=== PATIENT | female | born 1950 | race Caucasian/White ===

== ENCOUNTER → 2020-05-02 12:58 | Outpatient (CLI) | payer MEDICARE, SELFPAY ==
--- NOTE | 2020-05-02 12:59 | CT_ITS ---
STUDY: LOW DOSE CT LUNG CANCER SCREENING REASON FOR EXAM: Female, 70 years old. TOBACCO DEPENDENCY, LUNG SCREENING, CURRENT SMOKER-DOWN TO 5 PER DAY, 30 YRS X 1 PPD, HX OVARIAN/UTERINE CANCER RADIATION DOSAGE (If Supplied By Facility): CTDIvol = ( 2.01 ) mGy, DLP = ( 66.95 ) mGycm TECHNIQUE: No contrast was administered. Low dose technique was utilized (average mAS-38 and kVp 120). 1.25 mm axial source images with a slice interval of 1.25-mm were reconstructed in lung windows. 2.5 mm axial source images with a slice interval of 2.5-mm were reconstructed in lung windows. 5.0 mm axial source images with a slice interval of 5.0-mm were reconstructed in soft tissue windows. Nodule measured using lung windows on PACS and/or independent workstation with automated measurement of minimum and maximum diameter. Nodule measurement reported as average diameter rounded to the nearest whole number. Growth is defined as an increase ins size of greater than 1.5 mm. COMPARISON: None. FINDINGS: Lung windows show diffuse underlying emphysema with blebs scattered throughout both lung johnson. There is no organized infiltrate, groundglass opacifications, suspicious noncalcified mass or nodule. There are some interstitial changes and nonspecific pleural thickening in the lung bases that is likely chronic. No suspicious adenopathy, peripheral calcifications noted in the thoracic aorta without aneurysm. Bony structures show degenerative change. CT/Low Dose CT Lung Screening IMPRESSION: Lung-RADS category 2 - Continue annual screening with LDCT in 12 months. IMPORTANT NOTES FOR USE: ACR Lung-RADS Version 1.0 Assessment Categories Release Date: March 04, 2014 Category: Coded 0-4 bases on nodule(s) with highest degree of suspicion. Negative screen is defined as categories 1 and 2; a positive screen is defined as categories 3 and 4. Category 3 and 4A nodules that are unchanged on interval CT should be coded as category 2, and individuals returned to screening in 12 months. Category 4X: Category 3 or 4 nodules with additional imaging findings that increase the suspicion of lung cancer, such as spiculation, GGN that doubles in size in 1 year, enlarged lymph notes, etc. Category Modifiers: S (significant finding unrelated to lung cancer) and C (prior history of treated lung cancer) may be added to the 0-4 Lung-RADS Electronically Signed: Diogo Singer MD at 14:16 EDT , Service support ,
[2020-05-02 13:41] LABS: Absolute Neutrophil Count 4.2 X10^3/uL (2.0-7.7); Basophil# 0.07 X10^3/uL; Basophil% 0.9 % (0-1); Eosinophil# 0.17 X10^3/uL; Eosinophils% 2.3 % (0-5); Hematocrit 37.2 % (37-47); Hemoglobin 11.9 g/dL (12.0-15.0); Lymphocyte % 33.5 % (19-41); Mean Corpuscular Hgb 30.7 pg (27.0-32.0); Mean Corpuscular Volume 96.1 fL (81-99); Mean Platelet Vol. 10.4 fl (6.2-12.0); Monocyte# 0.49 X10^3/uL; Monocyte% 6.6 % (0-10); NRBC Flagged by Analyzer 0 % (0-5); Neutrophil # 4.22 X10^3/uL (2.7-7.7); Neutrophil % 56.6 % (47-70); Platelet Count 235 K/mm3 (150-450); RBC Distribution Width CV 13.3 % (11.6-14.6); RBC Distribution Width SD 47.1 fl (35.1-43.9); Red Blood Count 3.87 M/mm3 (4.2-5.4); White Blood Count 7.5 K/mm3 (4.4-11.0)
[2020-05-07 03:07] LABS: Alternaria tenuis <0.10 kU/L (Class 0); Ash, White <0.10 kU/L (Class 0); Aspergillus fumigatus <0.10 kU/L (Class 0); Bermuda Grass <0.10 kU/L (Class 0); Birch <0.10 kU/L (Class 0); Black Walnut <0.10 kU/L (Class 0); Cat Hair / Dander,Stand <0.10 kU/L (Class 0); Cedar, Mountain <0.10 kU/L (Class 0); Cladosporium herbarum <0.10 kU/L (Class 0); Cockroach, American <0.10 kU/L (Class 0); Cottonwood <0.10 kU/L (Class 0); D farinae Mite <0.10 kU/L (Class 0); D pteronyssinus <0.10 kU/L (Class 0); Dog Epithelia <0.10 kU/L (Class 0); Elm, American White <0.10 kU/L (Class 0); Immunoglobulin E 8 IU/mL (6-495); Maple/Box Elder <0.10 kU/L (Class 0); Mulberry, White <0.10 kU/L (Class 0); Oak, White <0.10 kU/L (Class 0); Pecan <0.10 kU/L (Class 0); Penicillium Notatum <0.10 kU/L (Class 0); Pigweed, Rough <0.10 kU/L (Class 0); Ragweed, Short/Common <0.10 kU/L (Class 0); Russian Thistle <0.10 kU/L (Class 0); Sheep Sorrel <0.10 kU/L (Class 0); Sycamore, American <0.10 kU/L (Class 0); Timothy Grass <0.10 kU/L (Class 0)
[2020-05-07 16:34] LABS: Immunoglobulin E 11 IU/mL (6-495); Mouse Urine <0.10 kU/L (Class 0)
== END ==
PROVIDERS: PCP Family Medicine; Referring Provider Internal Medicine Critical Care Medicine; Visit Provider Internal Medicine Critical Care Medicine
DX: J44.9 Chronic obstructive pulmonary disease, unspecified (principal); F17.210 Nicotine dependence, cigarettes, uncomplicated; J30.9 Allergic rhinitis, unspecified
CPT/HCPCS: 36415; 82785; 85025; 86003; G0297

== ENCOUNTER → 2020-05-30 10:28 | Outpatient (CLI) | payer MEDICARE, SELFPAY ==
[2017-07-15 06:46] VITALS: BMI 21.1
[2020-05-30 10:30] VITALS: PULSE 71; PULSE 81; PULSE 94; PULSE 95; PULSE 97; PULSE 99; O2SAT 94; O2SAT 95; O2SAT 96
--- NOTE | 2020-05-30 13:14 | PCM.PSN.6M ---
PSN 6 Minute Walk Test - 6 Minute Walk Test 6 Minute Walk Test: 6 Minute Walk Test PSN:6-Minute Walk Test Start: 05/30/20 12:15 Freq: Status: Active Protocol: [id number].[id number] Document 05/30/20 10:30 EW (Rec: 05/30/20 12:20 EW [id number]) 6 Minute Walk Test Date Performed 05/30/20 Time Performed 10:30 Height 5 ft 4 in Weight: 56.699 kg Weight in Pounds 125.[address]: Carlos Luther Assistive device used: None Pre-test Oxygen Delivery Method Room Air Pulse Ox (%) 96 Pulse Rate (60-100 beats/min) 71 Dyspnea Nick Scale (0-10) 3 Exertion Nick Scale (6-20) 8 1st minute Oxygen Delivery Method Room Air Pulse Ox (%) 95 Pulse Rate (60-100 beats/min) 95 2nd minute Oxygen Delivery Method Room Air Pulse Ox (%) 94 Pulse Rate (60-100 beats/min) 97 3rd minute Oxygen Delivery Method Room Air Pulse Ox (%) 94 Pulse Rate (60-100 beats/min) 97 Number of Rests Taken 1 Reported Symptoms Increased Work of Breathing 4th minute Oxygen Delivery Method Room Air Pulse Ox (%) 96 Pulse Rate (60-100 beats/min) 94 5th minute Oxygen Delivery Method Room Air Pulse Ox (%) 94 Pulse Rate (60-100 beats/min) 99 6th minute Oxygen Delivery Method Room Air Pulse Ox (%) 95 Pulse Rate (60-100 beats/min) 95 Post-test Oxygen Delivery Method Room Air Pulse Ox (%) 96 Pulse Rate (60-100 beats/min) 81 Dyspnea Nick Scale (0-10) 3 Exertion Nick Scale (6-20) 13 Full Laps Walked 13 Partial Lap, Number of Tiles Walked 0 Total Distance Walked (ft) 767 - Interpretation Interpretation: Patient was able to ambulate 767 feet over the course of 6 minutes on room air with no assistive devices and one break. The patient experienced no significant desaturation or tachycardia during testing. These findings are consistent with a musculoskeletal limitation exercise tolerance. - Recommendations Recommendations: No supplemental oxygen is indicated at this time.
== END ==
PROVIDERS: PCP Family Medicine; Referring Provider Internal Medicine Critical Care Medicine; Visit Provider Internal Medicine Critical Care Medicine
DX: J44.9 Chronic obstructive pulmonary disease, unspecified (principal); F17.210 Nicotine dependence, cigarettes, uncomplicated
CPT/HCPCS: 94618

== ENCOUNTER → 2020-07-17 20:00 | Outpatient (CLI) | payer MEDICARE, SELFPAY ==
[2020-06-26 07:46] VITALS: BMI 21.4
== END ==
PROVIDERS: PCP Family Medicine; Visit Provider Nurse Practitioner Acute Care
DX: G47.33 Obstructive sleep apnea (adult) (pediatric) (principal)
CPT/HCPCS: 95810

== ENCOUNTER → 2020-11-14 10:47 | Outpatient (CLI) | payer MEDICARE, SELFPAY ==
[2020-09-29 10:05] VITALS: BMI 22.1
--- NOTE | 2020-11-15 05:51 | PFTCOMP_ITS ---
COMPLETE PULMONARY FUNCTION TEST INTERPRETATION Brief HPI: Patient is a 70 year old female, currently under the care of Dr. Luther, who presents to [facility] for complete pulmonary function tests secondary to diagnosis of COPD. Respiratory therapist reports good effort and reproducible results. Interpretation: Forced expiration spirometry shows a mild large airways obstructive ventilatory defect with an FEV1 of 72% predicted. There is no significant bronchodilator response by strict ATS criteria. Spirograms are of good quality and plateau slowly, indicating slowly emptying areas of the lungs. The respiratory flow volume loop shows decreased expiratory flow rates at high lung volumes consistent with small airways obstruction. Lung volumes by body plethysmography show a normal total lung capacity at 4.86 L, 101% predicted. All other lung volumes are within normal limits. Diffusion capacity by carbon monoxide is at the lower limit of normal at 69% predicted. The airway resistance is normal. No previous pulmonary function tests were available for review. Impression: Irreversible mild large airways obstructive ventilatory defect with a symmetric reduction in diffusion capacity
== END ==
PROVIDERS: PCP Family Medicine; Referring Provider Internal Medicine Critical Care Medicine; Visit Provider Internal Medicine Critical Care Medicine
DX: J44.9 Chronic obstructive pulmonary disease, unspecified (principal); F17.210 Nicotine dependence, cigarettes, uncomplicated
CPT/HCPCS: 94060; 94618; 94726; 94729

== ENCOUNTER → 2021-03-10 16:18 | Outpatient (CLI) | payer MEDICARE, SELFPAY ==
[2020-12-31 13:13] VITALS: BMI 21.6
--- NOTE | 2021-03-10 16:19 | CT_ITS ---
STUDY: CT CHEST WITHOUT CONTRAST- LOW DOSE SCREENING PROTOCOL REASON FOR EXAM: Female, 71 years old. Current smoker. 30 pack per year history. No current symptoms of lung cancer or pulmonary infection. Shared decision-making with referring PCP documented in patient''s record. RADIATION DOSAGE (If Supplied By Facility): CTDIvol = ( 2.01 ) mGy, DLP = ( 71.48 ) mGycm TECHNIQUE: Low dose screening CT examination performed from the base of the neck to the upper abdomen. Sagittal and coronal reformatted images performed. Sagittal and coronal MIP images provided. The measurements provided are average, rounded measurements per ACR guidelines. COMPARISON: 05/02/2020 FINDINGS: Mild bilateral apical scarring. Mild emphysematous changes. No noncalcified nodule or mass. There is no demonstrated pleural abnormality. Normal heart and pericardium. There are calcifications of the coronary arteries. Normal mediastinum. Normal hilar regions. Normal unenhanced pulmonary arteries. There is atherosclerotic calcification of the aortic arch with tortuosity and elongation of the aortic arch and descending thoracic aorta. Normal osseous structures. There is no demonstrated abnormality of the visualized upper abdomen. CT/Low Dose CT Lung Screening IMPRESSION: 1. No significant indeterminate incidental findings requiring additional imaging. 2. Incidental findings include mild emphysema and bilateral apical scarring.. ASSESSMENT CATEGORY: LungRADS 1 - Negative. Continue annual screening with LDCT in 12 months, per established ACR guidelines. Electronically Signed: Trey Tierney MD at 8:43 EDT Tel , Service support ,
== END ==
PROVIDERS: PCP Family Medicine; Referring Provider Nurse Practitioner Acute Care; Visit Provider Nurse Practitioner Acute Care
DX: F17.210 Nicotine dependence, cigarettes, uncomplicated (principal)
CPT/HCPCS: 71271

== ENCOUNTER → 2022-04-28 | Outpatient (CLI) | payer MEDICARE, SELFPAY ==
--- NOTE | 2022-04-28 15:04 | CT_ITS ---
STUDY: LOW DOSE CT LUNG CANCER SCREENING REASON FOR EXAM: Female, 72 years old. smoker and gt; 30 pack year RADIATION DOSAGE (If Supplied By Facility): CTDIvol = ( 1.56 ) mGy, DLP = ( 54.79 ) mGycm TECHNIQUE: No contrast was administered. Low dose technique was utilized (average mAS-38 and kVp 120). 1.25 mm axial source images with a slice interval of 1.25-mm were reconstructed in lung windows. 2.5 mm axial source images with a slice interval of 2.5-mm were reconstructed in lung windows. 5.0 mm axial source images with a slice interval of 5.0-mm were reconstructed in soft tissue windows. COMPARISON: 03/10/2021 NODULES: No pulmonary nodules or masses. Bilateral pleural apical fibrotic scarring. Emphysema: Mild centrilobular emphysema. Endobronchial lesion: None Aorta: Atherosclerosis without evidence of aneurysm or dissection. CORONARY ARTERIES: Coronary artery calcification is seen. Heart: Normal size Pulmonary artery: Unremarkable for unopacified technique. Mediastinal nodes: No adenopathy Other chest and abdominal findings: None CT/Low Dose CT Lung Screening IMPRESSION: Lung-RADS category 1 - Continue annual screening with LDCT in 12 months. IMPORTANT NOTES FOR USE: ACR Lung-RADS Version 1.1 Assessment Categories Release Date: 2018 Category: Coded 0-4 bases on nodule(s) with highest degree of suspicion. Negative screen is defined as categories 1 and 2; a positive screen is defined as categories 3 and 4. Category 3 and 4A nodules that are unchanged on interval CT should be coded as category 2, and individuals returned to screening in 12 months. Category 4X: Category 3 or 4 nodules with additional imaging findings that increase the suspicion of lung cancer, such as spiculation, GGN that doubles in size in 1 year, enlarged lymph notes, etc. Category Modifiers: S (significant finding unrelated to lung cancer) Electronically Signed: Yves Ma MD (Brooks) at 9:11 EDT Reading Location ID and State: [facility] / [place] , Service support ,
== END | disposition home or self-care (01) ==
PROVIDERS: PCP Family Medicine; Referring Provider Nurse Practitioner Acute Care; Visit Provider Nurse Practitioner Acute Care
DX: F17.210 Nicotine dependence, cigarettes, uncomplicated (principal)
CPT/HCPCS: 71271

== ENCOUNTER → 2023-01-28 | Outpatient (CLI) | payer MEDICARE, SELFPAY ==
[2023-01-28 15:15] LABS: Hematocrit 38.4 % (37-47); Hemoglobin 12.4 g/dL (12.0-15.0); Mean Corp Hgb Conc 32.3 g/dL (32-36); Mean Corpuscular Hgb 30.6 pg (27.0-32.0); Mean Corpuscular Volume 94.8 fL (81-99); Mean Platelet Vol. 10.8 fl (6.2-12.0); Platelet Count 244 K/mm3 (150-450); RBC Distribution Width CV 14.3 % (11.6-14.6); RBC Distribution Width SD 50.2 fl (35.1-43.9); Red Blood Count 4.05 M/mm3 (4.2-5.4); White Blood Count 7.4 K/mm3 (4.4-11.0)
[2023-01-28 15:33] LABS: Vitamin B12 448 pg/mL (211-911)
[2023-01-28 16:22] LABS: AST(SGOT) 61 U/L (15-37); Alanine Aminotransfer ALT/SGPT 41 U/L (13-56); Albumin, Serum 3.5 g/dL (3.2-5.0); Alkaline Phosphatase 88 U/L (45-117); Anion Gap 3 (5-15); BUN 18 mg/dL (7-18); BUN/Creat Ratio 19.7 RATIO (10-20); Calcium,Total 9.3 mg/dL (8.5-10.1); Chloride 112 mmol/L (98-107); Creatinine, Serum 0.91 mg/dL (0.55-1.02); EST Glomerular Filtration Rate 64 mL/min (>60); Est Glom Filt Rate - Afr Amer 77 mL/min (>60); Globulin 3.6 g/dL (2.2-4.2); Glucose 87 mg/dL (74-106); Potassium 4.1 mmol/L (3.5-5.1); Protein, Total 7.1 g/dL (6.4-8.2); Sodium Level 140 mmol/L (136-145)
[2023-02-02 19:07] LABS: Free Kappa Light Chains 41.9 mg/L (3.3-19.4); Free Lambda Light Chains 23.7 mg/L (5.7-26.3)
[2023-02-03 09:27] LABS: Vitamin B1, Thiamine 124.2 nmol/L (66.5-200.0)
== END | disposition home or self-care (01) ==
PROVIDERS: PCP Family Medicine; Referring Provider Psychiatry & Neurology Neurology; Visit Provider Psychiatry & Neurology Neurology
DX: G31.84 Mild cognitive impairment of uncertain or unknown etiology (principal); R25.1 Tremor, unspecified; R09.89 Other specified symptoms and signs involving the circulatory and respiratory systems; G62.9 Polyneuropathy, unspecified; M54.50 Low back pain, unspecified
CPT/HCPCS: 36415; 80053; 82140; 82607; 82746; 83883; 84425; 84443; 85027

== ENCOUNTER → 2023-02-02 | Outpatient (CLI) | payer MEDICARE, SELFPAY ==
--- NOTE | 2023-02-02 13:54 | CDU_ITS ---
Reason For Study: LT BRUIT, HX OF STROKES Rt. Velocities/BP Lt. Velocities/BP Prox CCA 81.7/15.7 cm/sec. Prox CCA 73.3/16.6 cm/sec. Mid CCA 83.4/16.4 cm/sec. Mid CCA 76.1/19.5 cm/sec. Dist CCA 60.3/21.9 cm/sec. Dist CCA 59.1/14.7 cm/sec. Prox ICA 68.0/19.7 cm/sec. Prox ICA 220.2/44.6 cm/sec. Mid ICA 98.5/33.6 cm/sec. Mid ICA 128.9/34.0 cm/sec. Dist ICA 163.7/41.3 cm/sec. Dist ICA 80.9/25.1 cm/sec. Rt. ICA/CCA = 163.7/83.4=2.0. Lt. ICA/CCA = 220.2/76.1=2.9. Prox ECA 59.2/8.7 cm/sec. Prox ECA 113.1/10.8 cm/sec. Rt. Vert. 49.0/8.4 cm/sec. Lt. Vert. 45.0/13.8 cm/sec. Right Extracranial There is intimal thickening but no significant atherosclerotic plaque noted in the right common carotid artery. There is heterogeneous, irregular atherosclerotic plaque noted in the right internal carotid artery. The right distal internal carotid artery is very tortuous. There is heterogeneous, smooth atherosclerotic plaque noted in the right external carotid artery. Antegrade flow is noted in the right vertebral artery. There is heterogeneous, irregular atherosclerotic plaque noted in the left bulb. Left Extracranial There is intimal thickening but no significant atherosclerotic plaque noted in the left common carotid artery. There is heterogeneous, smooth atherosclerotic plaque noted in the left internal carotid artery. There is heterogeneous, smooth atherosclerotic plaque noted in the left external carotid artery. Antegrade flow is noted in the left vertebral artery. There is heterogeneous, irregular atherosclerotic plaque noted in the left bulb. Procedure Carotid Duplex [id number]. This is a Carotid Duplex examination using B-mode, color flow and specral Doppler. Exam performed in department. Image #47 is the L PICA. VL/Carotid Duplex Ultrasound Interpretation Summary Calcific plaque at the right carotid bulb and proximal internal carotid artery with 50 to 69% stenosis of the right distal internal carotid artery Less than 50% stenosis right external carotid artery Irregular calcific plaque at the proximal left internal carotid artery with 50 to 69% stenosis Less than 50% stenosis left external carotid artery Patent antegrade vertebral arteries bilaterally Ordering Physician: Jean Zavala Referring Physician: Cornell Rogers Performed By: Dot Minaya, CUONG, RVT
== END | disposition home or self-care (01) ==
LOC: CVS 13:48
PROVIDERS: PCP Family Medicine; Referring Provider Psychiatry & Neurology Neurology; Visit Provider Psychiatry & Neurology Neurology
DX: R09.89 Other specified symptoms and signs involving the circulatory and respiratory systems (principal); Z86.73 Personal history of transient ischemic attack (TIA), and cerebral infarction without residual deficits
CPT/HCPCS: 93880

== ENCOUNTER → 2023-02-10 | Outpatient (CLI) | payer MEDICARE, SELFPAY ==
--- NOTE | 2023-02-10 09:51 | TELEMED_ITS ---
[facility] has confirmed receipt of a request for visit. This document confirms receipt of the order initiating the consult. To find the results of the consultation, please view the patient's reports for the scanned Telemed Consult.
== END | disposition home or self-care (01) ==
LOC: PSN 08:25
PROVIDERS: PCP Family Medicine; Referring Provider Psychiatry & Neurology Neurology; Visit Provider Psychiatry & Neurology Neurology
DX: Z86.73 Personal history of transient ischemic attack (TIA), and cerebral infarction without residual deficits (principal); R56.9 Unspecified convulsions; G31.84 Mild cognitive impairment of uncertain or unknown etiology
CPT/HCPCS: 95819

== ENCOUNTER → 2023-02-11 | Outpatient (CLI) | payer MEDICARE, SELFPAY ==
--- NOTE | 2023-02-11 14:50 | CT_ITS ---
STUDY: CTA OF THE BRAIN REASON FOR EXAM: Female, 72 years old. 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 RADIATION DOSAGE (If Supplied By Facility): CTDIvol = ( 28.57 ) mGy, DLP = ( 1197.66 ) mGycm TECHNIQUE: CT angiography was performed with a multi-detector CT scanner. Data acquisition was obtained from the skull base through the vertex following intravenous administration of IV 100mL Isovue-370. MIP images were reconstructed from the axial data set. Post-processing of the angiographic images was performed, with multiplanar reformation and 3D reconstruction. Individualized dose optimization techniques were used for this CT. COMPARISON: None. FINDINGS: Normal bilateral petrous carotid arteries. Normal right cavernous carotid artery with a normal supraclinoid bifurcation. Normal left cavernous carotid artery with a normal supraclinoid bifurcation. Normal right A1 segments of the anterior cerebral artery. Normal left A1 segments of the anterior cerebral artery. Normal intact anterior communicating artery (ACOM). Normal bilateral A2 segments of the anterior cerebral arteries. Normal right M1 and M2 segments of the middle cerebral arteries, with a normal M1 bifurcation. Normal left M1 and M2 segments of the middle cerebral arteries, with a normal M1 bifurcation. Normal right posterior communicating artery (PCOM). Normal left posterior communicating artery (PCOM). Normal bilateral vertebral arteries. Normal basilar artery with a normal basilar bifurcation. The visualized bilateral superior cerebellar (SCA) arteries are normal. Normal bilateral P1, P2 and visualized P3 segments of the posterior cerebral arteries. 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 No complications are noted. 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 CT/CTA Head W/WO Contrast IMPRESSION: Normal [place] without a demonstrated aneurysm or hemodynamically significant stenosis. Electronically Signed: Diogo Singer MD at 9:42 EDT ,
== END | disposition home or self-care (01) ==
LOC: CT 14:50
PROVIDERS: PCP Family Medicine; Referring Provider Psychiatry & Neurology Neurology; Visit Provider Psychiatry & Neurology Neurology
DX: I67.1 Cerebral aneurysm, nonruptured (principal)
CPT/HCPCS: 70496; Q9967

== ENCOUNTER → 2023-04-13 | Outpatient (CLI) | payer MEDICARE, SELFPAY ==
--- NOTE | 2023-04-13 15:02 | NEURO_ITS ---
NCS and/or EMG Patient Report Ordering Doctor: Jean Zavala DATE OF SERVICE: 04/13/23 Gayatri presents for electrodiagnostic testing of the lower limbs. She reports pain and jerking in both legs over the past year. She has had multiple back surgeries. Electrodiagnostic findings: Right peroneal motor nerve demonstrates normal distal latency with reduced amplitude and reduced conduction velocity. Left peroneal motor nerve demonstrates normal distal latency with reduced amplitude and reduced conduction velocity. Right tibial motor nerve demonstrates prolonged distal latency with reduced amplitude and reduced conduction velocity. Left tibial motor nerve demonstrates normal distal latency with reduced amplitude and borderline reduced conduction velocity. Prolonged H reflex noted bilaterally. Normal right and left tibial F waves. Normal right peroneal F- wave. Left peroneal F wave was not obtained. Absent sensory responses in the sural, superficial peroneal and medial plantar nerves bilaterally. Needle EMG testing demonstrated motor units of normal amplitude and duration. There was a decreased recruitment pattern in the left gastrocnemius. No acute denervation was noted. Electrodiagnostic assessment: This is an abnormal study in the lower limbs 1. 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 2. No electrodiagnostic evidence is noted for lumbosacral radiculopathy. Multi Select Codes Neurology Neurology Interp Codes: 13815-10 Musc test done w/n test comp (interp) (2) and 91130-63 Nrv cndj test 11-12 studies (interp)
== END | disposition home or self-care (01) ==
PROVIDERS: PCP Family Medicine; Referring Provider Psychiatry & Neurology Neurology; Visit Provider Psychiatry & Neurology Neurology
DX: G20 Parkinson's disease (principal); G62.9 Polyneuropathy, unspecified; M54.50 Low back pain, unspecified; R26.9 Unspecified abnormalities of gait and mobility
CPT/HCPCS: 95886; 95912

== ENCOUNTER → 2023-04-29 | Outpatient (CLI) | payer MEDICARE, SELFPAY ==
--- NOTE | 2023-04-29 15:56 | CT_ITS ---
EXAM: CT CHEST, LUNG CANCER SCREENING WITHOUT INTRAVENOUS CONTRAST CLINICAL INDICATION: smoker TECHNIQUE: Helically acquired images were obtained of the chest without intravenous contrast using low dose (LDCT) lung cancer screening protocol. This CT exam was performed using one or more of the following dose reduction techniques: automated exposure control, adjustment of the mA and/or kV according to patient size, and/or use of iterative reconstruction technique. COMPARISON: 04/28/2022 FINDINGS: LUNGS AND PLEURAL SPACES: There is stable scarring in the right lung apex. There is a 3 mm pleural-based nodule left apex seen on series 602 image 15. The lungs are hyperinflated. No pneumothorax. HEART: There are coronary artery calcifications. Heart size is normal. No pericardial effusion. MEDIASTINUM: Unremarkable. No mediastinal or hilar adenopathy. Esophagus is unremarkable. No hiatal hernia. THYROID: Unremarkable. No thyroid lesions. BONES/JOINTS: Unremarkable. No suspicious lytic or blastic abnormality. VASCULATURE: See above. LYMPH NODES: Unremarkable. No enlarged lymph nodes. CT/Low Dose CT Lung Screening IMPRESSION: Small pleural-based nodule in the left apex. Lungs are hyperinflated with no focal consolidation. Lung-RADS score: 2 - Benign Appearance or Behavior. Recommend continued annual screening with a low-dose CT (LDCT) in 12 months. Electronically Signed: Roberto Burciaga MD at 23:14 EDT ,
== END | disposition home or self-care (01) ==
LOC: CT 15:55
PROVIDERS: PCP Family Medicine; Referring Provider Nurse Practitioner Acute Care; Visit Provider Nurse Practitioner Acute Care
DX: F17.210 Nicotine dependence, cigarettes, uncomplicated (principal)
CPT/HCPCS: 71271

== ENCOUNTER 2023-05-28 04:54 | Observation (INO) | payer MEDICARE, SELFPAY ==
[2023-05-28] VITALS (11 sets, daily range): BP systolic 107–126; BP diastolic 46–87; PULSE 47–71; RESP 16–18; TEMP 36.2–37.2; O2SAT 96–100; BMI 20.6; BMI 18.8
--- NOTE | 2023-05-28 04:57 | EDS_ITS ---
HPI History of Present Illness Chief Complaint: Neuro S/Sx [facility] Medical History (Updated 05/28/23 @ 06:[address] Dakota Au, DO) Abscess of cellulitis of buttock Breast cancer Chronic pain Chronic, continuous use of opioids COLD (chronic obstructive lung disease) Decreased vision History of brain aneurysm repair Uterine cancer Home Medications hydrocodone-acetaminophen 5-325mg 5mg-325mg 1 tab PO BID 12/16/15 [History Last Taken Unknown] aspirin 81 mg tablet,delayed release 81 mg PO DAILY 02/01/17 [History Last Taken Unknown] albuterol sulfate 90 mcg/actuation aerosol inhaler 2 inh inhalation Q6H PRN shortness of breath or wheezing #3 ea 04/19/22 [Rx Last Taken Unknown] montelukast 10 mg tablet 10 mg PO QPM #90 tabs 11/17/22 [Rx Last Taken Unknown] umeclidinium 62.5 mcg-vilanterol 25 mcg/actuation powdr for inhalation (Anoro Ellipta) 1 inh inhalation QDAY #3 ea 11/17/22 [Rx Last Taken Unknown] atorvastatin 20 mg tablet (Lipitor) 20 mg PO DAILY 01/25/23 [History Last Taken Unknown] duloxetine 60 mg capsule,delayed release 60 mg PO DAILY 01/25/23 [History Last Taken Unknown] fentanyl 50 mcg/hr transdermal patch 1 patch transdermal Q72H 01/25/23 [History Last Taken Unknown] pregabalin 150 mg capsule 150 mg PO BID 01/25/23 [History Last Taken Unknown] trazodone 50 mg tablet 75 mg PO QHS PRN 01/25/23 [History Last Taken Unknown] baclofen 20 mg tablet 20 mg PO TID #270 tabs 05/26/23 [Rx Last Taken Unknown] amitriptyline 25 mg tablet 25 mg PO QHS #90 tabs 05/27/23 [Rx Last Taken Unknown] Allergy/AdvReac Type Severity Reaction Status Date / Time codeine Allergy Hives Verified 05/26/23 14:33 nitrofurantoin Allergy Hives Verified 05/26/23 14:33 [From Macrobid] nitrofurantoin Allergy Hives Verified 05/26/23 14:33 macrocrystalline [From Macrobid] Food Allergies: Uncoded AdvReac Hives Verified 05/26/23 14:33 Family History (Updated 01/25/23 @ 10:04 by Magalie Ocampo) Brother Lung cancer Pancreatic cancer Father Bone cancer Sister Pancreatic cancer Other Colon cancer Surgical History History of appendectomy History of back surgery History of hysterectomy Hx of cholecystectomy No pertinent past surgical history Social History (Updated 01/25/23 @ 09:23 by Magalie Ocampo) Smoking Status: Current every day smoker tobacco type: cigarettes Tobacco: How many years used: 40 second hand exposure: Yes alcohol intake: never substance use type: does not use caffeine: Yes Type: coffee Number of servings: 2 kaylene/restorationist: Zoroastrianism seatbelt use: always EXAM Physical Exam Const Vital Signs: 05/28/23 04:55 05/28/23 05:16 05/28/23 06:17 Temperature 98 F Temperature Source Temporal Pulse Rate 71 53 L Respiratory Rate 18 16 Blood Pressure 126/80 H 125/62 H Blood Pressure Mean 95 83 Pulse Ox 97 98 Oxygen Delivery Method Room Air Room Air MDM MDM MDM Narrative Medical decision making narrative: TA HISTORY OF PRESENT ILLNESS: 73-year-old female here with concern for cute onset of change in mental status and weakness. She is accompanied by her provides majority history as patient is intermittently confused. He states that approximately 10 PM tonight she became altered. He denies any obvious focal weakness. Does note a history of a brain aneurysm status post clipping. Does no history of bleeding after this procedure. This is approximate 18 years ago. He states the patient did fall tonight. She denies any blood thinner use. Denies any recent fever. REVIEW OF SYSTEMS: Pertinent positives: Altered mental status Pertinent negatives: Focal weakness PHYSICAL EXAM: Nursing triage notes reviewed, Vital signs reviewed Constitutional: please see mdm HENT: MMM Eyes: Pupils equal round and reactive to light, Extraocular muscles intact, visual johnson with unilateral right eye with right upper quadrant and opiate Neck: No stridor, no JVD, full neck ROM Lungs: Clear to auscultation, No wheezing or rales. No increased work of breathing, no conversational dyspnea, no accessory muscle use, no nasal flaring. No respiratory distress noted Heart: Regular rate and rhythm, No murmurs, No rubs and No gallops, 2+ distal pulses (radial, femoral, posterior tibial) in all extremities Abdomen: Soft, there is no tenderness, rigidity, rebound or guarding, no obvious peritoneal signs, no palpable pulsatile abdominal masses, no auscultated abdominal bruit : No CVAT Extremities: No edema Neuro: Alert, follows commands, no obvious facial drooping. Left lower extremity with weakness compared to right and drift. NIH of 2 for visual field disturbance and left lower extremity drift. Skin: No rash or lesions noted MEDICAL DECISION MAKING: Chief Complaint: Altered mental status, weakness, fall External records reviewed: TIA in February 2023 Factors affecting care: Brain aneurysm status post clip, COPD, nicotine dependence, AAA Social determinants of health: tobacco use History obtained from others: The patient's Consults: Internal Medicine ALL IMAGES (IF OBTAINED) HAVE BEEN PERSONALLY REVIEWED AND INTERPRETED BY MYSELF. EKG with normal sinus rhythm, normal axis, normal intervals MDM Narrative: Patient was initially hemodynamically stable, afebrile nontoxic-appearing. Initial NIH was 2. Given the patient's history of intracranial hemorrhage in the past she is not a TNK candidate however she is still a thrombectomy candidate if we find a large vessel occlusion so stroke protocol was initiated. Patient taken immediately for CT scan without contrast as well as a CTA of the head neck. I considered the following differential diagnosis: ICH, subarachnoid hemorrhage, infectious cephalopathy, metabolic cephalopathy, TIA, CVA I obtained a broad lab and imaging work-up to further elucidate etiology of the patient's complaints. CT scan of the head, CTA of the head and neck showed no evidence of obvious intracranial hemorrhage or large vessel occlusion. I consulted stroke neurology who recommended against TNK. Stroke neurologist Dr. Peña recommended if the CTA is negative to manage the patient as per usual stroke protocol. CTA was remarkable for 50% ICA stenosis however there is no evidence of large vessel occlusion. Patient's EKG was nonischemic. Troponin was negative. Given the patient's change in mental status, NIH score of 2 for visual field abnormality and left leg weakness I offered the patient admission. I discussed this with the hospitalist who accepted the patient's case. Patient's labs were remarkable for mild respiratory acidosis. There is no other signs of any metabolic or infectious cephalopathy with negative UA no obvious pneumonia. His age. The etiology of patient's change in mental status and focal weakness is unclear at this time however given her advanced age concern for acute CVA amongst other etiologies she will benefit from hospitalization at this time for further evaluation. The patient and/or family, caregivers express understanding. The patient and/or family, caregivers agrees with the plan. Shared decision making: I will have a discussion with the patient and or visitors regarding risk/benefits of further testing or admission. They will be made aware of of the risk/benefits inherent in this decision they will be given the opportunity to voice understanding. Total critical care time today provided was at least 0 [] minutes. This excludes separately billable procedures. Critical care time (if documented) is secondary to the patient having high probability of clinically significant/life threatening deterioration in the patient's condition which required my urgent intervention. Lab Data Attestation: I reviewed the patient's lab results. Lab results narrative: CBC without leukocytosis, severe anemia, no thrombocytopenia. No coagulopathy BMP without evidence of significant electrolyte abnormalities, no anion gap, no acute kidney injury. Troponin is negative, no evidence of myocardial ischemia Glucose within normal limits Urinalysis shows no evidence of urinary inflammation suggestive of UTI VBG with respiratory acidosis mild CO2 elevation consistent with mild obstructive lung disease Labs: Laboratory Results - last 24 hr 05/28/23 05/28/23 05/28/23 05:04 05:12 06:14 WBC 7.2 RBC 3.92 L Hgb 12.0 Hct 37.4 MCV 95.4 MCH 30.6 MCHC 32.1 RDW Std Deviation 48.8 H RDW Coeff of Martina 14.0 Plt Count 203 MPV 10.3 Immature Gran % (Auto) 0.100 Neut % (Auto) 41.1 L Lymph % (Auto) 47.2 H [place] % (Auto) 8.7 Eos % (Auto) 2.1 Baso % (Auto) 0.8 Absolute Neuts (auto) 3.0 Absolute Lymphs (auto) 3.40 Nucleated RBC % 0 PT 13.9 INR 1.1 APTT 34.2 Sodium 143 Potassium 3.4 L Chloride 113 H Carbon Dioxide 26.0 Anion Gap 4 L BUN 14 Creatinine 1.01 Estim Creat Clear Calc 35.10 Est GFR (MDRD) Af Amer 69 Est GFR (MDRD) Non-Af 57 L BUN/Creatinine Ratio 13.9 Glucose 168 H Calcium 9.2 Troponin I High Sens 6 Urine Color Yellow Urine Clarity Clear Urine pH 7.0 Ur Specific [place] 1.005 Urine Protein Negative Urine Glucose (UA) Normal Urine Ketones Negative Urine Occult Blood Negative Urine Nitrite Negative Urine Bilirubin Negative Urine Urobilinogen Normal Ur Leukocyte Esterase Negative Urine RBC 0 SEEN Urine WBC 0 SEEN Ur Squamous Epith Cells 0 SEEN Urine Bacteria 0 SEEN Urine Mucus 0 SEEN POC Glucose 155 H ABG Data ABG results: ABG 05/28/23 06:34 Specimen Type NEO VBG pH 7.28 L VBG pO2 34 VBG HCO3 26 VBG Total CO2 27 VBG O2 Sat (Calc) 56 VBG Base Excess -1 POC Mix VBG pCO2 Pt Tmp 55.0 H Radiography Diagnostic Testing: Clinical Impression(s) from Imaging Studies Brain CT 05/28/23 05:10 IMPRESSION: No acute abnormality on noncontrast CT. CT angiogram and/or MRI may be helpful to evaluate for acute infarct as clinically indicated. Postsurgical changes with prior aneurysm clipping. Chronic microvascular ischemic disease.. Electronically Signed: Anika Diaz MD at 5:30 EDT , ADDENDUM: 05/28/23 0537 IMPRESSION: No acute abnormality on noncontrast CT. CT angiogram and/or MRI may be helpful to evaluate for acute infarct as clinically indicated. Postsurgical changes with prior aneurysm clipping. Chronic microvascular ischemic disease.. N.B. : The above Results were Read Back by Anika Diaz MD to Dakota Au DO, and understanding confirmed on 05/28/2023 05:30:38 (ET). Electronically Signed: Anika Diaz MD at 5:30 EDT , Head/Neck CTA 05/28/23 05:11 IMPRESSION: undefined ADDENDUM: 05/28/23 0608 IMPRESSION: undefined Chest X-Ray 05/28/23 05:45 IMPRESSION: Chronic obstructive pulmonary disease. No acute pulmonary disease. Electronically Signed: Sunny Worley MD at 6:51 EDT , Discharge Plan Dx/Rx/DC Orders Clinical Impression: Acute alteration in mental status Disposition Disposition: Acute Care [facility]
--- NOTE | 2023-05-28 05:10 | CT_ITS ---
We are attempting to reach an attending provider to discuss findings. An addendum with communication details will be sent when the communication is complete. INDICATION: Neuro deficit, acute, stroke suspected EXAMINATION: CT BRAIN - CT Head Stroke Protocol W/O Contrast Injection TECHNIQUE: Multiple axial images were obtained of the head without intravenous contrast. A radiation dose optimization technique was used for this scan. IV Contrast dosage and agent: None. RADIATION DOSAGE (If Supplied By Facility): CTDIvol = ( ) mGy, DLP = ( ) mGycm COMPARISON: CT head 02/11/2023 FINDINGS: BRAIN: Aneurysm clip right parasellar. No acute bleed. No edema. Old infarct in the right basal ganglia. Mild decreased attenuation in the periventricular white matter bilaterally. Smith-white matter differentiation is maintained. VENTRICLES AND SULCI: Not dilated. EXTRA-AXIAL: No hemorrhage, fluid collection, or mass. CALVARIUM / SKULL BASE: Right temporal craniotomy. FACE/SINUSES: Mucosal thickening in the sphenoid sinuses. SOFT TISSUES: Unremarkable. CT/STROKE Brain/Head without Cont IMPRESSION: No acute abnormality on noncontrast CT. CT angiogram and/or MRI may be helpful to evaluate for acute infarct as clinically indicated. Postsurgical changes with prior aneurysm clipping. Chronic microvascular ischemic disease.. Electronically Signed: Anika Diaz MD at 5:30 EDT ,
--- NOTE | 2023-05-28 05:10 | EKG12_ITS ---
Test Reason : STROKE ALERT Blood Pressure : / mmHG Vent. Rate : 060 BPM Atrial Rate : 060 BPM P-R Int : 194 ms QRS Dur : 094 ms QT Int : 454 ms P-R-T Axes : 082 048 060 degrees QTc Int : 454 ms Normal sinus rhythm Normal ECG Confirmed by CHELLE MARQUEZ, MEGGAN ([id number]), associate entertainment editor SAM DORMAN ([id number]) on 05/30/2023 12:31:39 PM Referred By: RONNIE Confirmed By:MEGGAN CORBETT MD
--- NOTE | 2023-05-28 05:11 | CT_ITS ---
EXAM: CT angiogram brain. HISTORY: Neuro deficit, acute, stroke suspected TECHNIQUE: CTA Head and Neck Stroke W/ Contrast (and W/O if performed). Multiplanar reconstructions and 3-D reformats were obtained. A radiation dose optimization technique was used for this scan. COMPARISON: Noncontrast head CT from the same day. CTA head February 11, 2023 LIMITATIONS: Motion artifact. DISTAL CAROTID ARTERIES: No significant stenosis. Aneurysm clip in the region of the supraclinoid right ICA. ANTERIOR CEREBRAL ARTERIES: No significant stenosis. MIDDLE CEREBRAL ARTERIES: Moderate to severe short segment stenosis of the distal M1 segment of the left middle cerebral artery. This is similar to the prior exam. POSTERIOR CEREBRAL ARTERIES: No significant stenosis. BASILAR ARTERY: Persistent right supraclinoid ICA to basilar anastomosis reflects an anatomic variant. No significant stenosis. OTHER: None. CONCLUSION: Moderate to severe stenosis of the distal M1 segment of the left middle cerebral artery. The appearance is grossly stable since the prior CTA. EXAM: CT angiogram neck. HISTORY: Neuro deficit, acute, stroke suspected TECHNIQUE: CTA Head and Neck Stroke W/ Contrast (and W/O if performed). Multiplanar reconstructions and 3-D reformats were obtained. A radiation dose optimization technique was used for this scan. COMPARISON: None. LIMITATIONS: None. CAROTID ARTERIES: Atherosclerotic calcification of the carotid bulbs bilaterally. Stenosis of the left ICA at the origin with decrease in diameter of 50% or less. Similar stenosis at the left ECA origin. No significant carotid stenosis. VERTEBRAL ARTERIES: No significant stenosis. BONES/SOFT TISSUES: No acute fracture. OTHER: None. CONCLUSION: No significant stenosis. N.B. : The above Results were Read Back by Sunny Worley MD to Dakota Au DO, and understanding confirmed on 05/28/2023 05:56:02 (ET). Electronically Signed: Sunny Worley MD at 6:01 EDT , CT/STROKE CTA Head AND Neck W/Con IMPRESSION: undefined
--- NOTE | 2023-05-28 05:19 | ED.RN ---
PT WAS DRIVEN TO ER BY AND DROPPED AT THE DOOR WHILE HE PARKED THE CAR. PT WAS UNSURE WHY SHE WAS HERE OR WHY HER BROUGHT HER HERE. SLOW TO ANSWER QUESITONS. TIME TO CT DELAYED DUE TO DIFFICULTY BY STAFF AND PHYSICIAN TO COMPLETE NIH. PT PRESENTED WITH VARIED VAGUE SYMPTOMS AND DIFFICULT TO PINPOINT COMPLAINT.
[2023-05-28 05:21] LABS: Basophil# 0.06 X10^3/uL; Basophil% 0.8 % (0-1); Eosinophil# 0.15 X10^3/uL; Eosinophils% 2.1 % (0-5); Hematocrit 37.4 % (37-47); Lymphocyte % 47.2 % (19-41); Mean Corp Hgb Conc 32.1 g/dL (32-36); Mean Corpuscular Hgb 30.6 pg (27.0-32.0); Mean Corpuscular Volume 95.4 fL (81-99); Mean Platelet Vol. 10.3 fl (6.2-12.0); Monocyte# 0.63 X10^3/uL; Monocyte% 8.7 % (0-10); NRBC Flagged by Analyzer 0 % (0-5); Neutrophil # 2.96 X10^3/uL (2.7-7.7); Neutrophil % 41.1 % (47-70); Platelet Count 203 K/mm3 (150-450); RBC Distribution Width SD 48.8 fl (35.1-43.9); Red Blood Count 3.92 M/mm3 (4.2-5.4); White Blood Count 7.2 K/mm3 (4.4-11.0)
[2023-05-28 05:23] LABS: Bedside Glucose 155 mg/dL (74-106)
[2023-05-28 05:37] LABS: International Normalized Ratio 1.1; Prothrombin Time (Protime)PT. 13.9 SECONDS (11.7-14.9)
[2023-05-28 05:38] LABS: Partial Thromboplast Time 34.2 Seconds (24.1-36.2)
[2023-05-28 05:41] LABS: Anion Gap 4 (5-15); BUN 14 mg/dL (7-18); BUN/Creat Ratio 13.9 RATIO (10-20); Calcium,Total 9.2 mg/dL (8.5-10.1); Chloride 113 mmol/L (98-107); Creatinine, Serum 1.01 mg/dL (0.55-1.02); EST Glomerular Filtration Rate 57 mL/min (>60); Est Glom Filt Rate - Afr Amer 69 mL/min (>60); Glucose 168 mg/dL (74-106); Potassium 3.4 mmol/L (3.5-5.1); Sodium Level 143 mmol/L (136-145); Troponin-I HS 6 pg/mL (3.0-54.0)
--- NOTE | 2023-05-28 05:45 | RAD_ITS ---
INDICATION: Neuro deficit, acute, stroke suspected EXAMINATION: Frontal view of the chest COMPARISON: None. FINDINGS: Frontal view of the chest was obtained. Hyperinflation. The cardiac silhouette is not enlarged. No confluent airspace disease. No pneumothorax. RAD/Chest 1 View IMPRESSION: Chronic obstructive pulmonary disease. No acute pulmonary disease. Electronically Signed: Sunny Worley MD at 6:51 EDT ,
--- NOTE | 2023-05-28 06:19 | ED.RN ---
PT IS UNWILLING TO TRY TO FOLLOW COMMANDS OTHER THAN TO PICK HER BUTT UP OFF THE FLOOR SO PANTS CAN BE PULLED DOWN AND SHE HELD HER LEGS OUT TO THE SIDE SO THIS NURSE COULD STRAIGHT CATH PT. PT THEM RELUCTANTLY PICKED HER BUTT UP AGAIN SO PANTS COULD BE PULLED BACK UP. PT WOULDN'T TALK TO NURSE BUT DID ARGUE WITH .
[2023-05-28 06:24] LABS: Bacteria 0 SEEN /hpf (None Seen); Mucous, Urine 0 SEEN /hpf (<or=2+); Red Blood Cells-Urine 0 SEEN /hpf (0-5); Squamous Epithelial Cells - UA 0 SEEN /hpf (5-10); White Blood Cells 0 SEEN /hpf (0-5)
[2023-05-28 06:29] LABS: Color, Urine Yellow (Yellow); Glucose, Dipstick Normal (Normal); Ketone-Dipstick Negative (Negative); Leukocyte Esterase-Dipstick Negative /ul (Negative); Nitrite-Dipstick Negative (Negative); Occult Blood-Urine Negative /ul (Negative); Protein-Dipstick Negative (Negative); Specific Gravity, Urine 1.005 (1.002-1.030); Urine Bilirubin Dipstick Negative (Negative); Urine Clarity Clear (Clear); Urine Urobilinogen Normal (Normal)
[2023-05-28 06:39] LABS: Blood Gas Specimen Type VEN; VBG BASE EXCESS -1 mmol/L (-1.0-3.5); VBG Bicarbonate 26 mmol/L (22-26); VBG PO2 34 mmHg (25-40); VBG SO2 56 % (50-70); VBG TCO2 27 mmol/L (23-33); VBG pH 7.28 (7.32-7.42)
--- NOTE | 2023-05-28 06:58 | ED.RN ---
LUCIANA CONTINUES TO NOT COOPERATE ATTEMPTS AT DOING A NIH FOR THIS NURSE AND
--- NOTE | 2023-05-28 07:16 | HP.PCM.HOS_ITS ---
HPI - General General Date of Admission: 05/28/23 Date of Service: 05/28/23 Chief Complaint: Confusion HPI Narrative SCOUT CASTILLO, is a 73 F with a significant history of brain aneurysm status post clip; and uterine cancer who presents to the emergency department with confusion. Patient's symptoms started few hours before presentation. Reportedly while shopping with her patient reported not feeling good. Later in the day patient developed confusion. History was taken predominantly from patient's who was at bedside as patient was not answering questions. Per patient patient fell. Per patient patient has some slurry speech. Also patient complain of leg pain. [facility] Medical History Abscess of cellulitis of buttock Breast cancer Chronic pain Chronic, continuous use of opioids COLD (chronic obstructive lung disease) Decreased vision History of brain aneurysm repair Uterine cancer Home Medications hydrocodone-acetaminophen 5-325mg 5mg-325mg 1 tab PO BID 12/16/15 [History Last Taken Unknown] aspirin 81 mg tablet,delayed release 81 mg PO DAILY 02/01/17 [History Last Taken Unknown] albuterol sulfate 90 mcg/actuation aerosol inhaler 2 inh inhalation Q6H PRN shortness of breath or wheezing #3 ea 04/19/22 [Rx Last Taken Unknown] montelukast 10 mg tablet 10 mg PO QPM #90 tabs 11/17/22 [Rx Last Taken Unknown] umeclidinium 62.5 mcg-vilanterol 25 mcg/actuation powdr for inhalation (Anoro Ellipta) 1 inh inhalation QDAY #3 ea 11/17/22 [Rx Last Taken Unknown] atorvastatin 20 mg tablet (Lipitor) 20 mg PO DAILY 01/25/23 [History Last Taken Unknown] duloxetine 60 mg capsule,delayed release 60 mg PO DAILY 01/25/23 [History Last Taken Unknown] fentanyl 50 mcg/hr transdermal patch 1 patch transdermal Q72H 01/25/23 [History Last Taken Unknown] pregabalin 150 mg capsule 150 mg PO BID 01/25/23 [History Last Taken Unknown] trazodone 50 mg tablet 75 mg PO QHS PRN 01/25/23 [History Last Taken Unknown] baclofen 20 mg tablet 20 mg PO TID #270 tabs 05/26/23 [Rx Last Taken Unknown] amitriptyline 25 mg tablet 25 mg PO QHS #90 tabs 05/27/23 [Rx Last Taken Unknown] Allergy/AdvReac Type Severity Reaction Status Date / Time codeine Allergy Hives Verified 05/26/23 14:33 nitrofurantoin Allergy Hives Verified 05/26/23 14:33 [From Macrobid] nitrofurantoin Allergy Hives Verified 05/26/23 14:33 macrocrystalline [From Macrobid] Food Allergies: Uncoded AdvReac Hives Verified 05/26/23 14:33 Family History Brother Lung cancer Pancreatic cancer Father Bone cancer Sister Pancreatic cancer Other Colon cancer Surgical History History of appendectomy History of back surgery History of hysterectomy Hx of cholecystectomy No pertinent past surgical history Social History Smoking Status: Current every day smoker tobacco type: cigarettes Tobacco: How many years used: 40 second hand exposure: Yes alcohol intake: never substance use type: does not use caffeine: Yes Type: coffee Number of servings: 2 kaylene/worship: [employer] seatbelt use: always ROS Review of Systems ROS Unobtainable: due to mental status Vital Signs Vital Signs Vital Signs: 05/28/23 04:55 05/28/23 05:16 05/28/23 06:17 Temperature 98 F Temperature Source Temporal Pulse Rate 71 53 L Respiratory Rate 18 16 Blood Pressure 126/80 H 125/62 H Blood Pressure Mean 95 83 Pulse Ox 97 98 Oxygen Delivery Method Room Air Room Air 05/28/23 06:46 05/28/23 06:58 05/28/23 07:00 Temperature 97.2 F L Temperature Source Oral Pulse Rate 50 L 47 L 52 L Respiratory Rate 16 16 16 Blood Pressure 114/64 116/61 116/61 Blood Pressure Mean 80 79 79 Pulse Ox 99 100 99 Oxygen Delivery Method Room Air Room Air Weight Weight: 47.9 kg Body Mass Index (BMI) 20.6 Physical Exam Narrative Physical exam: General: Well-nourished, well-developed. Head: Normocephalic, atraumatic, no tenderness Eyes: Does not open eyes long enough factors. ENT, no trauma, moist mucous membranes, no rhinorrhea Neck: Nontender, No thyromegaly. CVS: Regular rate and rhythm. S1-S2 present. No murmur, gallop or rub. Respiratory : clear to auscultation bilaterally, chest wall nontender Abdomen: Soft, nontender, nondistended, normal bowel sounds, no masses : Deferred Back: Nontender, no CVA tenderness, no midline spinal tenderness, deformities, step-offs Extremities: Move bilateral upper extremities in testing for strength. Moderate resistance in bilateral upper extremities. Strength. Does not move bilateral lower extremity due to strength. Bilateral lower extremities coiled Skin: Normal color, no trauma, abrasions Neuro: Hypoalert. Following few commands and not following majority of commands. Keep her eyes shut. Psychiatry: Keep her eyes shut. Not following commands. Results Lab / Micro Data 05/28/23 05:12 05/28/23 05:12 Labs: Laboratory Results - last 24 hr 05/28/23 05:04: POC Glucose 155 H 05/28/23 05:12: WBC 7.2, RBC 3.92 L, Hgb 12.0, Hct 37.4, MCV 95.4, MCH 30.6, MCHC 32.1, RDW Std Deviation 48.8 H, RDW Coeff of Martina 14.0, Plt Count 203, MPV 10.3, Immature Gran % (Auto) 0.100, Neut % (Auto) 41.1 L, Lymph % (Auto) 47.2 H, [place] % (Auto) 8.7, Eos % (Auto) 2.1, Baso % (Auto) 0.8, Absolute Neuts (auto) 3.0, Absolute Lymphs (auto) 3.40, Nucleated RBC % 0, PT 13.9, INR 1.1, APTT 34.2, Sodium 143, Potassium 3.4 L, Chloride 113 H, Carbon Dioxide 26.0, Anion Gap 4 L, BUN 14, Creatinine 1.01, Estim Creat Clear Calc 35.10, Est GFR (MDRD) Af Amer 69, Est GFR (MDRD) Non-Af 57 L, BUN/Creatinine Ratio 13.9, Glucose 168 H , Calcium 9.2, Troponin I High Sens 6 05/28/23 06:14: Urine Color Yellow, Urine Clarity Clear, Urine pH 7.0, Ur Specific [place] 1.005, Urine Protein Negative, Urine Glucose (UA) Normal, Urine Ketones Negative, Urine Occult Blood Negative, Urine Nitrite Negative, Urine Bilirubin Negative, Urine Urobilinogen Normal, Ur Leukocyte Esterase Negative, Urine RBC 0 SEEN, Urine WBC 0 SEEN, Ur Squamous Epith Cells 0 SEEN, Urine Bacteria 0 SEEN, Urine Mucus 0 SEEN ABG Data ABG results: ABG 05/28/23 06:34 Specimen Type NEO VBG pH 7.28 L VBG pO2 34 VBG HCO3 26 VBG Total CO2 27 VBG O2 Sat (Calc) 56 VBG Base Excess -1 POC Mix VBG pCO2 Pt Tmp 55.0 H Radiology Impression Brain CT 05/28/23 05:10 IMPRESSION: No acute abnormality on noncontrast CT. CT angiogram and/or MRI may be helpful to evaluate for acute infarct as clinically indicated. Postsurgical changes with prior aneurysm clipping. Chronic microvascular ischemic disease.. Electronically Signed: Anika Diaz MD at 5:30 EDT , ADDENDUM: 05/28/23 0537 IMPRESSION: No acute abnormality on noncontrast CT. CT angiogram and/or MRI may be helpful to evaluate for acute infarct as clinically indicated. Postsurgical changes with prior aneurysm clipping. Chronic microvascular ischemic disease.. N.B. : The above Results were Read Back by Anika Diaz MD to Dakota Au DO, and understanding confirmed on 05/28/2023 05:30:38 (ET). Electronically Signed: Anika Diaz MD at 5:30 EDT , Head/Neck CTA 05/28/23 05:11 IMPRESSION: undefined ADDENDUM: 05/28/23 0608 IMPRESSION: undefined Chest X-Ray 05/28/23 05:45 IMPRESSION: Chronic obstructive pulmonary disease. No acute pulmonary disease. Electronically Signed: Sunny Worley MD at 6:51 EDT , Assessment & Plan Assessment/Plan (1) Encephalopathy acute: PLAN: Plan Acute encephalopathy Etiology unclear. Differential diagnosis includes stroke. Serial NINDS NIH Scale ordered Impression of head CT by radiology: No acute abnormality on noncontrast CT. CT angiogram and/or MRI may be helpful to evaluate for acute infarct as clinically indicated. Postsurgical changes with prior aneurysm clipping. Chronic microvascular ischemic disease.. Upon my personal head CT image review: I agree with radiologist interpretation Head and neck CTA does not have significant stenosis. Lipid profile and A1c ordered. Physical therapy, occupational therapy and Speech therapy to work with patient. N.p.o. until bedside swallow eval. Because of encephalopathy we will keep patient NPO. Permissive hypertension. Control blood pressure with labetalol for systolic blood pressure of more than 220 or diastolic blood pressure of more than 120. Reportedly (per patient's ) patient's aneurysmal clip is not MRI compatible. Recommend that patient be at the hospital couple of days for a repeat CT of head. Echocardiogram ordered. VBG is not impressive. TSH ordered emergency department, follow. Check a mmonia, and syphilis. DVT prophylaxis: SCDs ordered. Time spent in the patient's overall evaluation,decision-making process, review of diagnostic data, adjustment of management, discussion with other providers, nursing nursing and ancillary staff involved in patient's care documentation, 60 minutes. Charges/Coding Visit Charges Inpatient E&M: 22604 Init Hosp L3
[2023-05-28 07:27] LABS: Thyroid Stim Hormone (TSH) 2.02 uIU/mL (0.358-3.74)
--- NOTE | 2023-05-28 08:10 | ECHOD_ITS ---
Reason For Study: TIA/CVA Procedure This was a 2D Doppler, Color Flow transthoracic echocardiogram. Exam performed portable in patient room. Left Ventricle Normal size and thickness. The left ventricular ejection fraction is 65 %. Diastolic function is indeterminate. Right Ventricle Normal right ventricle. Atria The left and right atria are normal. Lipomatous hypertrophy of the atrial septum. Bubble contrast study is negative for PFO/ASD. Mitral Valve Trivial mitral valve insufficiency. Tricuspid Valve Mild to moderate (1-2+) tricuspid valve insufficiency. Right ventricular systolic pressure estimated to be 39 mmHg. Aortic Valve Trisinus/trileaflet aortic valve. Moderate focal aortic valve thickening. There is no aortic stenosis. No aortic valve insufficiency. Pulmonic Valve The pulmonic valve is not well visualized. Great Vessels The aortic root is not well visualized. Pericardium/Pleural No pericardial effusion. Medication Performed a rapid injection of agitated mix of 9 cc saline and 1cc air to assess for atrial septal defect. MMode/2D Measurements & Calculations LVIDd: 4.0 cm IVSd: 0.73 cm LAV(MOD-bp): 46.6 ml LVIDs: 2.8 cm LVPWd: 0.86 cm FS: 30.0 % LAV(MOD-bp) Indexed: 32.3 ml/m2 LAV(MOD-sp2): 29.3 ml LAV(MOD-sp4): 53.7 ml SV(MOD-sp4): 43.2 ml SV(sp4-el): 47.4 ml LVAd ap4: 22.2 cm2 LVLd ap4: 6.7 cm EDV(MOD-sp4): 58.2 ml EDV(sp4-el): 62.2 ml LVAs ap4: 9.3 cm2 LVLs ap4: 5.0 cm ESV(MOD-sp4): 15.0 ml ESV(sp4-el): 14.9 ml EF(MOD-sp4): 74.2 % EF(sp4-el): 76.1 % TAPSE: 2.9 cm LA A4 area: 19.4 cm2 RA A4 area: 14.8 cm2 Doppler Measurements & Calculations Lat Peak E' Moo: 6.6 cm/sec Med Peak E' Moo: 7.1 cm/sec MV V2 max: 97.5 cm/sec MV max P.8 mmHg MV V2 mean: 49.9 cm/sec MV mean P.3 mmHg MV V2 VTI: 38.7 cm Ao V2 max: 161.5 cm/sec LV V1 max: 108.6 cm/sec PA V2 max: 97.8 cm/sec Ao max P.5 mmHg LV V1 max P.7 mmHg PA V2 mean: 67.6 cm/sec Ao V2 mean: 98.2 cm/sec LV V1 mean P.1 mmHg Ao mean P.6 mmHg LV V1 mean: 66.1 cm/sec Ao V2 VTI: 45.6 cm LV V1 VTI: 25.4 cm AV (velocity ratio): 0.56 TR max moo: 267.5 cm/sec TR max P.6 mmHg ECHO/Echo Complete Interpretation Summary The left ventricular ejection fraction is 65 %. Diastolic function is indeterminate. Lipomatous hypertrophy of the atrial septum. Bubble contrast study is negative for PFO/ASD. Mild to moderate (1-2+) tricuspid valve insufficiency. Right ventricular systolic pressure estimated to be 39 mmHg. Focal thickening and calcification of the noncoronary cusp of the aortic valve. Ordering Physician: Bhavesh Chand Referring Physician: DOMINICK RODRÍGUEZ Performed By: Mary Jack RCS
--- NOTE | 2023-05-28 08:25 | NURSING ---
Pt has a fentanyl patch in place to L shoulder dosage is 50 mcg. She thinks she applied the patch yesterday. There is not date on the patch.
--- NOTE | 2023-05-28 08:30 | NURSING ---
Pt does not possess any information regarding aneurysm clip nor does .
[2023-05-28 09:49] LABS: Ammonia < 10.0 umol/L (11-32)
[2023-05-28 09:53] LABS: Alcohol, Blood (Medical)-Serum < 3.0 mg/dL
[2023-05-28 10:12] LABS: Syphilis Antibodies Non-reactive; Vitamin B12 315 pg/mL (211-911)
[2023-05-28] MEDS: Potassium Chloride Oral Tablet 20 MEQ 40 MEQ PO (11:00)
[2023-05-28] MEDS: Pregabalin 75 MG Capsule 150 MG PO ×2 (11:00→21:54)
[2023-05-28] MEDS: Acetaminophen 325 MG Tablet 650 MG PO (11:04)
--- NOTE | 2023-05-28 13:40 | PCM.HOSP.N ---
Hospitalist Note Patient resting in bed, primary complaint is pain related which she reports is chronic and no different from baseline. Fentanyl patch is on, given mental status on arrival her hydrocodone had been held, will restart this as needed at lower dose and monitor carefully. As it is home medication did not want to hold something unnecessarily but did not want to worsen mental status either. Patient has no other complaints at this time
--- NOTE | 2023-05-28 14:07 | CASEMGMT ---
ANASTASIIA CM in to discuss JOHNSON form with patient. RN CM explained JOHNSON form, patient voiced understanding. Pt signed form and filed in chart. Pt provided with a copy of signed JOHNSON form. Patient had no further questions or concerns at this time.
--- NOTE | 2023-05-28 14:07 | CASEMGMT ---
ANASTASIIA CM into pt room, discussed pt progress with therapy. Pt lives in a single story home with 3 steps to enter with a rail. Pt reports she lives with her . States she uses a cane but also has a FWW available to her. Discussed HHC with patient. Pt is agreeable to this as she states she has been falling. Patient was provided a list of HHC providers including quality and resource use data and consistent with the patient?s preferred geographic region, medical needs, and insurance network were provided from the [employer] Guide. Pt chose [facility]. She states she has had them in the past and pt would like to return home. Referral made via [employer] and left message with intake as well. TC to pt to discuss dc plan, no answer and unable to leave a message.
[2023-05-28] MEDS: DULoxetine Hcl 60 MG Capsule PO (14:08)
[2023-05-28] MEDS: HYDROcodone Bitartrate/Apap 5/325 Tablet PO ×2 (14:08→18:27)
[2023-05-28] MEDS: Ipratropium/Albuterol Sulfate 3 ML AMPUL.NEB INHALATION (19:20)
[2023-05-28] MEDS: Atorvastatin Calcium 20 MG Tablet PO (21:54)
[2023-05-28] MEDS: Montelukast 10 MG Tablet PO (21:54)
[2023-05-28 23:22] LABS: Amphetamine Urine VISTA NEGATIVE (<1000 ng/mL); Barbiturate Urine VISTA NEGATIVE (< 200 ng/mL); Benzodiazepine Urine VISTA NEGATIVE (< 200 ng/mL); Cocaine Urine VISTA NEGATIVE (< 300 ng/mL); Ecstacy Urine VISTA POSITIVE (< 500 ng/mL); Methadone Urine VISTA NEGATIVE (< 300 ng/mL); PCP Urine VISTA NEGATIVE (< 25 ng/mL); THC Urine VISTA NEGATIVE (< 50 ng/mL); Vista UDS pH Range 6
[2023-05-29 02:00] VITALS: BP 109/59; PULSE 53; RESP 12; TEMP 36.4; O2SAT 96
[2023-05-29 06:00] VITALS: BP 104/52; PULSE 59; RESP 14; TEMP 36.6; O2SAT 97
[2023-05-29 06:02] LABS: Absolute Lymphocyte Count 3.16 X10^3/uL (0.83-4.51); Absolute Neutrophil Count 3.3 X10^3/uL (2.0-7.7); Basophil# 0.07 X10^3/uL; Basophil% 0.9 % (0-1); Eosinophil# 0.26 X10^3/uL; Eosinophils% 3.5 % (0-5); Hematocrit 34.3 % (37-47); Hemoglobin 11.1 g/dL (12.0-15.0); Lymphocyte # 3.16 X10^3/ul (0.83-4.51); Lymphocyte % 42.7 % (19-41); Mean Corp Hgb Conc 32.4 g/dL (32-36); Mean Corpuscular Hgb 30.8 pg (27.0-32.0); Mean Corpuscular Volume 95.3 fL (81-99); Mean Platelet Vol. 10.7 fl (6.2-12.0); Monocyte# 0.62 X10^3/uL; Monocyte% 8.4 % (0-10); NRBC Flagged by Analyzer 0 % (0-5); Neutrophil # 3.29 X10^3/uL (2.7-7.7); Neutrophil % 44.5 % (47-70); Platelet Count 202 K/mm3 (150-450); RBC Distribution Width CV 14.1 % (11.6-14.6); RBC Distribution Width SD 49.5 fl (35.1-43.9); White Blood Count 7.4 K/mm3 (4.4-11.0)
[2023-05-29 06:49] LABS: Anion Gap 2 (5-15); BUN 19 mg/dL (7-18); BUN/Creat Ratio 19.8 RATIO (10-20); Chloride 113 mmol/L (98-107); Cholesterol 95 mg/dL (200); Creatinine, Serum 0.96 mg/dL (0.55-1.02); EST Glomerular Filtration Rate 60 mL/min (>60); Est Glom Filt Rate - Afr Amer 73 mL/min (>60); Estimated Creatinine Clearance 38.07 ml/min; Glucose 96 mg/dL (74-106); High Density Lipoprotein 49 mg/dL; Potassium 3.9 mmol/L (3.5-5.1); Sodium Level 143 mmol/L (136-145); Triglycerides 77 mg/dL; Very Low Density Lipoprotein 15 mg/dL (5-40)
[2023-05-29] MEDS: Ipratropium/Albuterol Sulfate 3 ML AMPUL.NEB INHALATION (06:59)
[2023-05-29 07:00] VITALS: PULSE 62; RESP 18; O2SAT 97
[2023-05-29 08:15] VITALS: PULSE 54; RESP 16; O2SAT 96
--- NOTE | 2023-05-29 08:51 | CT_ITS ---
STUDY: CT BRAIN WITHOUT CONTRAST REASON FOR EXAM: Female, 73 years old. Mental status change RADIATION DOSAGE (If Supplied By Facility): CTDIvol = ( 44.99 ) mGy, DLP = ( 769.11 ) mGycm TECHNIQUE: Transaxial CT imaging of the brain was performed without administration of intravenous contrast material. Individualized dose optimization techniques were used for this CT. COMPARISON: 05/28/2023 FINDINGS: Evidence of previous right craniotomy and aneurysm clipping. Normal size ventricles and extra-axial spaces for the patient''s age. There are areas of decreased attenuation within the white matter tracts of the supratentorial brain, consistent with microvascular disease changes. 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 Normal brainstem. Normal cerebellum. There is no intracranial hemorrhage. There are no findings of an acute ischemic infarction. Normal visualized paranasal sinuses. CT/Brain/Head without Contrast IMPRESSION: Age consistent and postsurgical changes, no acute findings, no interval change Electronically Signed: Diogo Singer MD at 11:47 EDT ,
[2023-05-29] MEDS: Pregabalin 75 MG Capsule 150 MG PO (10:16)
[2023-05-29] MEDS: Aspirin E.C. 81 MG Tablet PO (10:17)
[2023-05-29] MEDS: DULoxetine Hcl 60 MG Capsule PO (10:17)
--- NOTE | 2023-05-29 10:38 | NURSING ---
Pt and pt's asking multiple staff members throughout morning for pt to have pain medicine. Educated at length about the fact that the pt becomes nearly unresponsive after receiving pain meds. This RN discussed the fact that the pt takes 6 medications on a regular basis that cause drowsiness/neurological impairment i.e. fentanyl pain, norco, baclofen, antidepressents, and lyrica and that once the medicines are withheld for an extended period of time, nursing has observed that her neurological status improves. Also discussed the adverse effects of these mediciations on a pt that has COPD and still smokes. Pt and were very thankful for the time taken to explain this as they feel they have not been given the time by the pt's current providers. This RN suggested possible consultation with a pain specialist given the fact she has been on narcotics for nearly 20 years- we talked about development of tolerance, etc and the fact that the pain will likely never completely stop and ways to achieve a tolerable level instead. Pt slightly tearful, verbalizing that we think she is a drug addict or came in with an overdose. Reassured pt that it is our job to modify medical care according to her response to treatment we are providing and in her case, medications that she has been prescribed by her doctors, we are observing may be negatively impacting her neurologically, not the fact that she is an addict. Reassured the pt that any person prescribed these types of medications has the propensity to become dependent and that is why we try to judiciously use these medication bedore they become problematic. Again, pt and her thanked this RN for education stating they have learned more talking to you than we have in years. Let pt know that in an hour we would reevaluate her pain level and give her norco if needed.
[2023-05-29 11:40] VITALS: BP 116/53; PULSE 67; RESP 16; TEMP 36.4; O2SAT 98
[2023-05-29] MEDS: HYDROcodone Bitartrate/Apap 5/325 Tablet PO (11:43)
--- NOTE | 2023-05-29 12:33 | DS.PCM_ITS ---
Providers Date of Admission: 05/28/23 Date of Discharge: 05/29/23 Primary Care Physician: Dr. Cornell Rodríguez MD Reason For Visit: STROKE-LIKE SYMPTOMS Diagnosis Discharge Diagnosis (1) Toxic encephalopathy: Status: Acute Code(s): G92.9 - Unspecified toxic encephalopathy (2) COPD (chronic obstructive pulmonary disease): Status: Chronic Code(s): J44.9 - Chronic obstructive pulmonary disease, unspecified Qualifiers: COPD type: unspecified COPD Qualified Code(s): J44.9 - Chronic obstructive pulmonary disease, unspecified (3) Chronic pain: Status: Chronic Code(s): G89.29 - Other chronic pain (4) Polyneuropathy: Status: Chronic Code(s): G62.9 - Polyneuropathy, unspecified Medications at Discharge Home Medications hydrocodone-acetaminophen 5-325mg 5mg-325mg 1 tab PO BID 12/16/15 aspirin 81 mg tablet,delayed release 81 mg PO DAILY 02/01/17 albuterol sulfate 90 mcg/actuation aerosol inhaler 2 inh inhalation Q6H PRN shortness of breath or wheezing #3 ea 04/19/22 montelukast 10 mg tablet 10 mg PO QPM #90 tabs 11/17/22 umeclidinium 62.5 mcg-vilanterol 25 mcg/actuation powdr for inhalation (Anoro Ellipta) 1 inh inhalation QDAY #3 ea 11/17/22 atorvastatin 20 mg tablet (Lipitor) 20 mg PO DAILY 01/25/23 duloxetine 60 mg capsule,delayed release 60 mg PO DAILY 01/25/23 fentanyl 50 mcg/hr transdermal patch 1 patch transdermal Q72H 01/25/23 pregabalin 150 mg capsule 150 mg PO BID 01/25/23 baclofen 20 mg tablet 20 mg PO TID #270 tabs 05/26/23 amitriptyline 25 mg tablet 25 mg PO QHS #90 tabs 05/27/23 Hospital Course Summary of Care Provided Minutes Spent on Discharge: 36 Hospital Course: Patient is a 73-year-old female with history of chronic back pain on multiple medications including fentanyl patch, tobacco use, brain aneurysm status post clipping, COPD, history of breast and uterine cancer who presented to [facility] 05/28/2023 with altered mental status. brought her to the ED for worsening confusion and not feeling well. Etiology was unclear and labs unremarkable so she was brought in as a stroke rule out. CT head and CTA unremarkable, echo with negative bubble study, patient unable to get MRI due to aneurysm clip. Her medications were adjusted and patient improved significantly, repeat CT head at 24 hours with no changes patient no focal def icits and was doing well with no complaints aside from her chronic pain complaints. Counseled her and her extensively on her multiple medications and this was likely secondary to the multiple medications in addition to her age and also reports that she often works out in her garden and will get very hot and does not stay hydrated. Patient has been verbalized understanding and gave verbal recommendations, also have these written down and discharge instructions for patient. All questions answered, patient had no further complaints and patient has been comfortable going home. Discharge instructions as follows: -You came in with confusion and acting like yourself and there were no new findings that would explain this. After review and adjustment of your medication list symptoms improved and it is suspected that medication interactions led to this presentation -Would advise not taking amitriptyline or trazodone at bedtime at this time -Would advise taking one half a tab of your Dale (so taking 5 mg) as needed instead of the 10 mg -Would advise discussing this medication with your primary care physician and only taking if absolutely necessary and would recommend taking lower dose given you presented with confusion and altered mental status -Please follow-up with your neurologist upon discharge, please call Dr. Zavala's office upon discharge to schedule an appointment ) -Please call your primary care provider's office upon discharge to schedule a hospital follow up within 1 week. -For any concerning signs or symptoms please call 911 or proceed to the nearest emergency department Physical Exam Narrative General: Alert, oriented, no apparent distress HEENT: Atraumatic, normocephalic Eyes: extraocular movements grossly intact Neck: Supple Respiratory: normal respiratory effort Cardiovascular: no edema appreciated GI: nondistended Extremities: Moving all extremities Neuro: No overt focal neurological deficits Psych: Cooperative Medical Records Data Medical Nutrition Assessment Dietitian: Malnutrition Criteria Met Start: 05/28/23 12:45 Freq: Status: Active Protocol: Document 05/28/23 12:45 OSMANY (Rec: 05/28/23 12:45 [facility] [id number]) Nutrition Malnutrition Evidence of Malnutrition Exists Yes Malnutrition (severe): Chronic Evidenced By Suboptimal Energy Intake ( Severe),Weight Loss (Severe), Physical Changes (Severe) Clinical Problem Chronic Disease or Condition Related Malnutrition Etiology related to inadequate energy intake Signs/Symptoms as evidenced by ~75% of est nutritional needs and 13.9% unintended wt loss x 7 months. Status Active Problem Recommendation Dietitian Recommendations/Changes Change diet to Regular gluten free/ no frozen dinners Will order ensure plus high protein tid w/ meals Continue to follow and monitor for changes in pt nutritional status Weight / BMI Weight Weight: 46.9 kg Body Mass Index (BMI) 18.8 ABG / Lab / Microbiology Data 05/29/23 05:08 05/29/23 05:08 Laboratory: Laboratory Results - last 24 hr 05/28/23 06:14: Urine Opiates Screen POSITIVE H, Urine Methadone Screen NEGATIVE, Ur Barbiturates Screen NEGATIVE, Ur Phencyclidine Scrn NEGATIVE, Ur Amphetamines Screen NEGATIVE, MDMA (Ecstasy) Screen POSITIVE H, U Benzodiazepines Scrn NEGATIVE, Urine Cocaine Screen NEGATIVE, U Cannabinoids Screen NEGATIVE, Ur Drug Screen Comment 05/29/23 05:08: WBC 7.4, RBC 3.60 L, Hgb 11.1 L, Hct 34.3 L, MCV 95.3, MCH 30.8, MCHC 32.4, RDW Std Deviation 49.5 H, RDW Coeff of Martina 14.1, Plt Count 202, MPV 10.7, Immature Gran % (Auto) 0.000, Neut % (Auto) 44.5 L, Lymph % (Auto) 42.7 H, [place] % (Auto) 8.4, Eos % (Auto) 3.5, Baso % (Auto) 0.9, Absolute Neuts (auto) 3.3, Absolute Lymphs (auto) 3.16, Nucleated RBC % 0, Sodium 143, Potassium 3.9, Chloride 113 H, Carbon Dioxide 28.0, Anion Gap 2 L, BUN 19 H, Creatinine 0.96, Estim Creat Clear Calc 38.07, Est GFR (MDRD) Af Amer 73, Est GFR (MDRD) Non-Af 60, BUN/Creatinine Ratio 19.8, Glucose 96, Calcium 9.0, Triglycerides 77, Cho lesterol 95, LDL Cholesterol 31, VLDL Cholesterol 15, HDL Cholesterol 49 Radiography Diagnostic Testing: Radiology Impression Echocardiogram 05/28/23 08:10 Interpretation Summary The left ventricular ejection fraction is 65 %. Diastolic function is indeterminate. Lipomatous hypertrophy of the atrial septum. Bubble contrast study is negative for PFO/ASD. Mild to moderate (1-2+) tricuspid valve insufficiency. Right ventricular systolic pressure estimated to be 39 mmHg. Focal thickening and calcification of the noncoronary cusp of the aortic valve. Ordering Physician: Bhavesh Chand Referring Physician: CORNELL RODRÍGUEZ Performed By: Mary Jack RCS Brain CT 05/29/23 08:51 IMPRESSION: Age consistent and postsurgical changes, no acute findings, no interval change Electronically Signed: Diogo Singer MD at 11:47 EDT , D/C Instructions Discharge Diet: No restrictions Meaningful Use Info Meaningful Use Diagnoses (Choose all that apply): None applicable Discharge Plan Admission Admit Date/Time: 05/28/23 06:51 Primary Reason for Your Visit: Altered mental status Attending Provider: Lucinda Jett Primary Care Provider: Cornell Rodríguez Consulting Providers: Bhavesh Chand Instructions Patient Instructions: ED Fall Prevention Additional Instructions / Restrictions: DISCHARGE INSTRUCTIONS PLEASE READ *Please take this with you to your next doctors appointment* -You came in with confusion and acting like yourself and there were no new findings that would explain this. After review and adjustment of your medication list symptoms improved and it is suspected that medication inter actions led to this presentation -Would advise not taking amitriptyline or trazodone at bedtime at this time -Would advise taking one half a tab of your Dale (so taking 5 mg) as needed instead of the 10 mg -Would advise discussing this medication with your primary care physician and only taking if absolutely necessary and would recommend taking lower dose given you presented with confusion and altered mental status -Please follow-up with your neurologist upon discharge, please call Dr. Seymour gómez's office upon discharge to schedule an appointment ) -Please call your primary care provider's office upon discharge to schedule a hospital follow up within 1 week. -For any concerning signs or symptoms please call 911 or proceed to the nearest emergency department Discharge Orders/Prescriptions Prescriptions: Continued albuterol sulfate 90 mcg/actuation HFA aerosol inhaler 2 inh inhalation Q6H PRN (Reason: shortness of breath or wheezing) Qty: 3 3RF Anoro Ellipta 62.5-25 mcg/actuation blister with device 1 inh INHALATION QDAY Qty: 3 3RF montelukast 10 mg tablet 10 mg PO QPM Qty: 90 3RF duloxetine 60 mg capsule,delayed release(DR/EC) 60 mg PO DAILY atorvastatin [Lipitor] 20 mg tablet 20 mg PO DAILY fentanyl 50 mcg/hr patch 72 hour 1 patch transdermal Q72H hydrocodone-acetaminophen 1 TABLET tablet 1 tab PO BID aspirin 81 MG tablet,delayed release (DR/EC) 81 mg PO DAILY pregabalin 150 mg capsule 150 mg PO BID Held baclofen 20 mg tablet 20 mg PO TID Qty: 270 1RF Hold Instructions: Resume on 06/08/23. Would advise discussing this medication with your primary care physician and only taking if absolutely necessary and would recommend taking lower dose given you presented with confusion and altered mental status amitriptyline 25 mg tablet 25 mg PO QHS Qty: 90 1RF Hold Instructions: Resume on 06/15/23. Would recommend against continuing this medication but please discuss with your primary care physician Discontinued trazodone 50 mg tablet 75 mg PO QHS PRN (Reason: sleep) Referrals / Follow Up: Jean Zavala MD [Non-Staff -Ordering Privileges] - Within 1 Month (Please follow up with your neurologist upon discharge) Cornell Rodríguez MD [Primary Care Provider] - Within 1 Month Disposition Disposition (needs filled in before D/C Order can be placed): Home, Self Care Charges/Coding Visit Charges Inpatient E&M: 96194 Disch Hosp >30min
--- NOTE | 2023-05-30 14:42 | CASEMGMT ---
[facility] can accept pt for SOC tomorrow. They will notify pt.
== END 2023-05-29 14:06 | disposition home health service (06) ==
LOC: ED 06:54 → PCU 07:15
PROVIDERS: Admitting Provider Hospitalist; Emergency Provider Emergency Medicine; PCP Family Medicine; Visit Provider Internal Medicine
DX: G92.9 Unspecified toxic encephalopathy (principal); J44.9 Chronic obstructive pulmonary disease, unspecified; R41.82 Altered mental status, unspecified; M79.606 Pain in leg, unspecified; E87.29 Other acidosis; G62.9 Polyneuropathy, unspecified; G89.29 Other chronic pain; R53.1 Weakness; F17.210 Nicotine dependence, cigarettes, uncomplicated; Z79.899 Other long term (current) drug therapy; Z79.82 Long term (current) use of aspirin; I07.1 Rheumatic tricuspid insufficiency; R47.81 Slurred speech; Z91.81 History of falling
CPT/HCPCS: 36415; 70450; 70496; 70498; 71045; 80048; 80061; 80307; 81001; 82077; 82140; 82607; 82803; 82962; 84443; 84484; 85025; 85610; 85730; 86780; 92610; 93005; 93306; 94640; 94762; 97162; 97166; 97802; 99221; 99285; 99406; P9612; Q9967; A4216; G0378

== ENCOUNTER 2023-06-11 13:52 | Inpatient (IN) | payer MEDICARE, SELFPAY ==
[2023-06-11] VITALS (15 sets, daily range): BP systolic 97–164; BP diastolic 50–93; PULSE 66–776; RESP 12–96; TEMP 36.1–36.6; O2SAT 94–100; BMI 21.2
[2023-06-11] MEDS: Naloxone 2 MG/2 ML Syringe NASAL (13:55)
[2023-06-11] MEDS: Naloxone 2 MG/2 ML Syringe IV (13:57)
--- NOTE | 2023-06-11 13:58 | ED.RN ---
UPON ARRIVAL PT. WAS GIVEN 2MG INTRANASAL NARCAN. PT. BECAME RESPONSIVE AND OPENING EYES, DR. ANDERS GAVE VERBAL ORDER FOR 2 MORE IV NARCAN. PT. NOW RESPONSIVE, FOLLOWING COMMANDS AND IN PAIN.
--- NOTE | 2023-06-11 13:59 | EKG12_ITS ---
Test Reason : UNRESPONSIVE Blood Pressure : / mmHG Vent. Rate : 099 BPM Atrial Rate : 099 BPM P-R Int : 160 ms QRS Dur : 076 ms QT Int : 356 ms P-R-T Axes : 083 065 088 degrees QTc Int : 456 ms Sinus rhythm with marked sinus arrhythmia Possible Left atrial enlargement Nonspecific ST abnormality Abnormal ECG Confirmed by CHELLE MARQUEZ, MEGGAN ([id number]), assignment editor SAM DORMAN ([id number]) on 06/13/2023 1:23:16 PM Referred By: NEETA Confirmed By:MEGGAN CORBETT MD
--- NOTE | 2023-06-11 13:59 | CT_ITS ---
STUDY: CT BRAIN WITHOUT CONTRAST REASON FOR EXAM: Female, 73 years old. mental status change Individualized dose optimization techniques were used for this CT. TECHNIQUE: Transaxial CT imaging of the brain was performed without administration of intravenous contrast material. COMPARISON: May 28, 2023 FINDINGS: There are calcifications around the carotid artery. These are noted in the cavernous carotid arteries. Right frontal bone craniotomy. Normal soft tissues. There is mild cerebral atrophy with widening of the extra-axial spaces and ventricular dilatation. There are areas of decreased attenuation within the white matter tracts of the supratentorial brain, consistent with microvascular disease changes. 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 Normal brainstem. There is mild cerebellar atrophy. There is no intracranial hemorrhage. There are no findings of an acute ischemic infarction. Degenerative changes of the mandibular condyles. ASPECTS Score for Acute Strokes: 10 CT/Brain/Head without Contrast IMPRESSION: There are no acute findings. Chronic involutional changes of the brain. Electronically Signed: Gen Hagan MD at 15:37 EDT ,
--- NOTE | 2023-06-11 14:00 | EDS_ITS ---
HPI History of Present Illness Chief Complaint: Unresponsive Detail of Chief Complaint: Unresponsive Informant: patient Narrative Narrative: Patient presents to the emergency department with an unresponsive episode that was noted today. Her last saw her well last evening before she went to bed approximately 2300 hrs. This morning she had some slurred speech and he tried to wake her and had a hard time waking her so he called EMS. On EMS arrival she apparently became somewhat agitated with them. Her vital signs were normal. In route to the hospital they noted that her respiratory rate went down to 3 so they started bagging her. She does have history of chronic pain and has a Duragesic patch on. On arrival patient unresponsive and being bagged. [facility] Medical History Abscess of cellulitis of buttock Breast cancer Chronic pain Chronic, continuous use of opioids COLD (chronic obstructive lung disease) Decreased vision History of brain aneurysm repair Uterine cancer Home Medications hydrocodone-acetaminophen 5-325mg 5mg-325mg 1 tab PO BID pain 12/16/15 [History Last Taken Unknown] aspirin 81 mg tablet,delayed release 81 mg PO DAILY heart health 02/01/17 [History Last Taken Unknown] albuterol sulfate 90 mcg/actuation aerosol inhaler 2 inh inhalation Q6H PRN shortness of breath or wheezing #3 ea 04/19/22 [Rx Last Taken Unknown] montelukast 10 mg tablet 10 mg PO QPM pain #90 tabs 11/17/22 [Rx Last Taken Unknown] umeclidinium 62.5 mcg-vilanterol 25 mcg/actuation powdr for inhalation (Anoro Ellipta) 1 inh inhalation QDAY breathing #3 ea 11/17/22 [Rx Last Taken Unknown] atorvastatin 20 mg tablet (Lipitor) 20 mg PO DAILY cholesterol 01/25/23 [History Last Taken Unknown] duloxetine 60 mg capsule,delayed release 60 mg PO DAILY mental health 01/25/23 [History Last Taken Unknown] fentanyl 50 mcg/hr transdermal patch 1 patch transdermal Q72H pain 01/25/23 [History Last Taken Unknown] pregabalin 150 mg capsule 150 mg PO BID pain 01/25/23 [History Last Taken Unknown] baclofen 20 mg tablet 20 mg PO TID muscle relaxer #270 tabs 05/26/23 [Rx Last Taken Unknown] amitriptyline 25 mg tablet 25 mg PO QHS sleep #90 tabs 05/27/23 [Rx Last Taken Unknown] Allergy/AdvReac Type Severity Reaction Status Date / Time codeine Allergy Hives Verified 05/26/23 14:33 nitrofurantoin Allergy Hives Verified 05/26/23 14:33 [From Macrobid] nitrofurantoin Allergy Hives Verified 05/26/23 14:33 macrocrystalline [From Macrobid] Food Allergies: Uncoded AdvReac Hives Verified 05/26/23 14:33 Family History Brother Lung cancer Pancreatic cancer Father Bone cancer Sister Pancreatic cancer Other Colon cancer Surgical History History of appendectomy History of back surgery History of hysterectomy Hx of cholecystectomy No pertinent past surgical history Social History Smoking Status: Current every day smoker tobacco type: cigarettes Tobacco: How many years used: 40 second hand exposure: Yes alcohol intake: never substance use type: does not use caffeine: Yes Type: coffee Number of servings: 2 kaylene/anabaptist: Hindu seatbelt use: always ROS ROS ED Review of Systems ROS Unobtainable: other Constitutional Constitutional ED: Reports lethargy; Denies chills, fever(s), sweats or weight loss Eyes Eyes: Denies blurry vision, change in vision or diplopia ENT ENT ED: Denies rhinorrhea or sore throat Cardiovascular Cardiovascular: Denies chest pain, orthopnea or racing heartbeat Respiratory/Chest Respiratory/Chest: Denies cough, dyspnea, dyspnea on exertion, orthopnea or sputum Gastrointestinal Gastrointestinal: Denies abdominal pain, diarrhea, nausea or vomiting Genitourinary Genitourinary ED: Denies dysuria, hematuria or urinary frequency Musculoskeletal Musculoskeletal: Reports back pain; Denies arthralgias, myalgias or neck pain Integumentary Denies abscess, Abrasions or rash Neurologic Neurologic: Denies headache(s) or weakness Psychiatric Psychiatric: Denies anxiety, depression or suicidal thoughts Endocrine Endocrinology: Denies polydipsia, polyphagia or polyuria Hematologic/Lymphatic Hematologic/Lymphatic: Denies easy bleeding, easy bruising or lymphadenopathy Allergic/Immunologic Allergic/Immunologic ED: Denies mouth swelling, tongue swelling or urticaria EXAM Physical Exam Const Vital Signs: 06/11/23 13:54 06/11/23 14:10 06/11/23 14:39 Temperature 97.1 F L Temperature Source Temporal Pulse Rate 134 H 91 89 Respiratory Rate 22 H 96 H 19 H Blood Pressure 147/50 H 164/93 H Blood Pressure Mean 82 116 Pulse Ox 97 94 99 Oxygen Delivery Method Room Air Nasal Cannula Nasal Cannula Oxygen Flow Rate (L/min) 2 2 06/11/23 15:28 06/11/23 16:14 06/11/23 16:16 Temperature Temperature Source Pulse Rate 79 83 Respiratory Rate 24 H 18 Blood Pressure 135/82 H Blood Pressure Mean 99 Pulse Ox 97 100 Oxygen Delivery Method Room Air Nasal Cannula Oxygen Flow Rate (L/min) 2 Positive well nourished and well developed General Appearance ED: well developed and NAD HEENT Reports TM's clear and moist mucous membranes normocephalic and atraumatic; Negative for trauma or tenderness Tympanic Membrane ED: Yes TM's clear Eyes PERRL and EOMs intact bilaterally General Eye ED: Negative for pale conjunctiva or scleral icterus Neck no lymphadenopathy, supple and no JVD General: Negative for tenderness Chest Wall inspection of chest normal and palpation of chest normal Chest: Negative for tenderness Resp normal respiratory effort and clear to auscultation bilaterally Effort and Inspection: Negative for respiratory distress or pain with movement Auscultation: Negative for rhonchi, wheezes or diminished lung sounds Cardio regular rate, regular rhythm, S1 normal heart sound, S2 normal heart sound and no murmurs Peripheral Pulses: pulses 2+ throughout GI normal to inspection, nondistended, normoactive bowel sounds, soft to palpation, non-tender, non-distended and no masses Back/Spine no CVA tenderness and no thoracic nor lumbar tenderness Extremity normal to inspection General Extremety ED: Negative for edema General Extremity: Negative for edema Neuro oriented x3, CN's II-XII intact bilaterally, no sensory deficits noted and gait normal Sensorium / Orientation: awake, alert, oriented to person, oriented to place and oriented to time Motor Exam: strength 5/5 throughout and strength abnormal Psych mental status grossly normal Skin no rashes or lesions noted and no wounds MDM MDM MDM Narrative Medical decision making narrative: Initially on arrival patient unresponsive. She received 4 mg of intranasal Narcan. IV line was established. Patient placed on a teletypesetter monitor. Patient did soon after started to wake up and answer questions. She is complaining of back pain. We did remove her Duragesic patch from her left arm. She appeared to be moving all extremities without difficulty. In the differential would be stroke versus accidental opiate overdose versus mental status change due to infectious etiology which I suspect is less likely. She did seem to respond well to the Narcan. Patient will have a CT scan of her brain obtained as well as basic labs and urinalysis. Patient not a tPA candidate as last known well time was last evening at 2300 hrs. patient became quite agitated after Narcan administration. She was not following commands appropriately. Patient had to be chemically restrained so that we could obtain CT imaging of her brain and she was given Haldol 2 mg IM and Ativan 1 mg IV. Patient was given a second dose of Haldol 2 mg IM. states that patient was admitted to our facility about a week ago with similar presentation and they thought maybe she had had a stroke. In the discharge summary it was noted that it was felt that her abnormal behavior may have been due to medication encephalopathy. Clinically I am suspecting more of a metabolic encephalopathy. Patient's head CT and CTA were unremarkable. Urinalysis was normal. Case will be discussed with hospitalist to evaluate patient for admission. I suspect likely a metabolic encephalopathy as the etiology of her symptoms. I suspect there may be a component of overmedication with narcotics that she does not respond well to Narcan initially. Lab Data Attestation: I reviewed the patient's lab results. Labs: Laboratory Results - last 24 hr 06/11/23 06/11/23 06/11/23 13:55 14:55 16:25 WBC 9.3 RBC 4.11 L Hgb 12.5 Hct 38.8 MCV 94.4 MCH 30.4 MCHC 32.2 RDW Std Deviation 49.7 H RDW Coeff of Martina 14.2 Plt Count 235 MPV 9.9 Immature Gran % (Auto) 0.500 Neut % (Auto) 52.8 Lymph % (Auto) 34.5 [place] % (Auto) 9.5 Eos % (Auto) 1.8 Baso % (Auto) 0.9 Absolute Neuts (auto) 4.9 Absolute Lymphs (auto) 3.19 Nucleated RBC % 0 Sodium 144 Potassium 3.7 Chloride 111 H Carbon Dioxide 30.0 Anion Gap 3 L BUN 20 H Creatinine 0.79 Estim Creat Clear Calc 39.04 Est GFR (MDRD) Af Amer 91 Est GFR (MDRD) Non-Af 75 BUN/Creatinine Ratio 25.2 H Glucose 104 Calcium 9.3 Total Bilirubin 0.30 AST 85 H ALT 62 H Alkaline Phosphatase 106 Ammonia 19.0 Troponin I High Sens 7 Total Protein 6.8 Albumin 3.2 Globulin 3.6 Albumin/Globulin Ratio 0.9 Urine Color Yellow Urine Clarity Clear Urine pH 6.5 Ur Specific [place] 1.010 Urine Protein Negative Urine Glucose (UA) Normal Urine Ketones Negative Urine Occult Blood 10 H Urine Nitrite Negative Urine Bilirubin Negative Urine Urobilinogen Normal Ur Leukocyte Esterase Negative Urine RBC 0-5 SEEN Urine WBC 0 SEEN Ur Squamous Epith Cells 0 SEEN Urine Bacteria 0 SEEN Urine Mucus 0 SEEN Radiography Diagnostic Testing: Clinical Impression(s) from Imaging Studies Brain CT 06/11/23 13:59 IMPRESSION: There are no acute findings. Chronic involutional changes of the brain. Electronically Signed: Gen Hagan MD at 15:37 EDT , Head/Neck CTA 06/11/23 14:03 IMPRESSION: 1. There is mild atherosclerotic plaque formation of the origin of the right internal carotid artery with less than 50% cross sectional diameter stenosis. ALL ABOVE CRITERIA BY NASCET. 2. There is mild atherosclerotic plaque formation of the origin of the left internal carotid artery with less than 50% cross sectional diameter stenosis. ALL ABOVE CRITERIA BY NASCET. 3. There is calcified plaque formation of the right cavernous carotid artery, with a mild stenosis (less than 50%). ALL ABOVE CRITERIA BY NASCET. 4. There is calcified plaque formation of the left cavernous carotid artery, with a mild stenosis (less than 50%). ALL ABOVE CRITERIA BY NASCET. Electronically Signed: Gen Hagan MD at 15:55 EDT , EKG Initial EKG: Attestation: I personally reviewed and interpreted this EKG as follows: Comments: Sinus rhythm with PACs and nonspecific ST changes Discharge Plan Triage Chief Complaint: Unresponsive ED Provider: Vishal Cabello Dx/Rx/DC Orders Clinical Impression: History of chronic pain, Encephalopathy, Altered mental status Prescriptions: No Action albuterol sulfate 90 mcg/actuation HFA aerosol inhaler 2 inh inhalation Q6H PRN (Reason: shortness of breath or wheezing) Qty: 3 3RF Anoro Ellipta 62.5-25 mcg/actuation blister with device 1 inh INHALATION QDAY Qty: 3 3RF montelukast 10 mg tablet 10 mg PO QPM Qty: 90 3RF duloxetine 60 mg capsule,delayed release(DR/EC) 60 mg PO DAILY atorvastatin [Lipitor] 20 mg tablet 20 mg PO DAILY fentanyl 50 mcg/hr patch 72 hour 1 patch transdermal Q72H baclofen 20 mg tablet 20 mg PO TID Qty: 270 1RF Hold Instructions: Resume on 06/08/23. Would advise discussing this medication with your primary care physician and only taking if absolutely necessary and would recommend taking lower dose given you presented with confusion and altered mental status amitriptyline 25 mg tablet 25 mg PO QHS Qty: 90 1RF Hold Instructions: Resume on 06/15/23. Would recommend against continuing this medication but please discuss with your primary care physician hydrocodone-acetaminophen 1 TABLET tablet 1 tab PO BID aspirin 81 MG tablet,delayed release (DR/EC) 81 mg PO DAILY pregabalin 150 mg capsule
--- NOTE | 2023-06-11 14:01 | ED.RN ---
FENTANYL PATCH REMOVED FROM PT. ARM AND WASTED IN MED WASTE WITH KAIDEN LAURENT
--- NOTE | 2023-06-11 14:03 | CT_ITS ---
EXAM: CT ANGIOGRAPHY HEAD AND NECK WITH INTRAVENOUS CONTRAST CLINICAL INDICATION: mental status change TECHNIQUE: [place]/head and neck CT angiography protocol performed with intravenous contrast. This CT exam was performed using one or more of the following dose reduction techniques: automated exposure control, adjustment of the mA and/or kV according to patient size, and/or use of iterative reconstruction technique. MIP reconstructed images were created and reviewed. CONTRAST: IV 100mL [id number] RADIATION DOSE: CTDIvol = 39.91 mGy, DLP = 515.39 mGy-cm COMPARISON: No relevant prior studies available. FINDINGS: HEAD: RIGHT ANTERIOR CEREBRAL ARTERY: Unremarkable. No significant stenosis at the visualized segments. Anterior communicating artery is present. No aneurysm. RIGHT MIDDLE CEREBRAL ARTERY: Unremarkable. No significant stenosis at the visualized segments. No aneurysm. RIGHT POSTERIOR CEREBRAL ARTERY: Unremarkable. No occlusion or significant stenosis. No aneurysm. RIGHT INTRACRANIAL INTERNAL CAROTID ARTERY: Unremarkable. No significant stenosis. No dissection or occlusion. RIGHT INTRACRANIAL VERTEBRAL ARTERY: Unremarkable. No significant stenosis. No dissection or occlusion. LEFT ANTERIOR CEREBRAL ARTERY: Unremarkable. No significant stenosis at the visualized segments. No aneurysm. LEFT MIDDLE CEREBRAL ARTERY: Unremarkable. No significant stenosis at the visualized segments. No aneurysm. LEFT POSTERIOR CEREBRAL ARTERY: Unremarkable. No occlusion or significant stenosis. No aneurysm. LEFT INTRACRANIAL INTERNAL CAROTID ARTERY: Unremarkable. No significant stenosis. No dissection or occlusion. LEFT INTRACRANIAL VERTEBRAL ARTERY: Unremarkable. No significant stenosis. No dissection or occlusion. BASILAR ARTERY: Unremarkable. No significant stenosis. No aneurysm. OTHER VASCULATURE: There is mild atherosclerotic plaque formation of the origin of the right internal carotid artery with less than 50% cross sectional diameter stenosis. ALL ABOVE CRITERIA BY NASCET. There is mild atherosclerotic plaque formation of the origin of the left internal carotid artery with less than 50% cross sectional diameter stenosis. ALL ABOVE CRITERIA BY NASCET. There is calcified plaque formation of the right cavernous carotid artery, with a mild stenosis (less than 50%). ALL ABOVE CRITERIA BY NASCET. There is calcified plaque formation of the left cavernous carotid artery, with a mild stenosis (less than 50%). ALL ABOVE CRITERIA BY NASCET. No vascular malformation. NECK: RIGHT COMMON CAROTID ARTERY: Unremarkable. No significant stenosis. No dissection or occlusion. RIGHT EXTRACRANIAL INTERNAL CAROTID ARTERY: Unremarkable. No significant stenosis. No dissection or occlusion. RIGHT EXTERNAL CAROTID ARTERY: Unremarkable. No occlusion. RIGHT EXTRACRANIAL VERTEBRAL ARTERY: Unremarkable. No significant stenosis. No dissection or occlusion. LEFT COMMON CAROTID ARTERY: Unremarkable. No significant stenosis. No dissection or occlusion. LEFT EXTRACRANIAL INTERNAL CAROTID ARTERY: Unremarkable. No significant stenosis. No dissection or occlusion. LEFT EXTERNAL CAROTID ARTERY: Unremarkable. No occlusion. LEFT EXTRACRANIAL VERTEBRAL ARTERY: Unremarkable. No significant stenosis. No dissection or occlusion. BRACHIOCEPHALIC AND SUBCLAVIAN ARTERIES: Unremarkable as visualized. No occlusion or significant stenosis. LUNG APICES: Unremarkable as visualized. HEAD and NECK: BONES/JOINTS: Unremarkable. No discrete lytic or blastic abnormalities. SOFT TISSUES: Unremarkable. OTHER FINDINGS: Post-processing of the angiographic images was performed, with axial imaging and 3D reconstruction. MIPS images were obtained. CAROTID STENOSIS REFERENCE USING NASCET CRITERIA: % ICA stenosis = (1 - narrowest ICA diameter/diameter of distal cervical ICA) x 100. Mild - <50% stenosis. Moderate - 50-69% stenosis. Severe - 70-94% stenosis. Near occlusion - 95-99% stenosis. Occluded - 100% stenosis. CT/CTA Head AND Neck W/ Contrast IMPRESSION: 1. There is mild atherosclerotic plaque formation of the origin of the right internal carotid artery with less than 50% cross sectional diameter stenosis. ALL ABOVE CRITERIA BY NASCET. 2. There is mild atherosclerotic plaque formation of the origin of the left internal carotid artery with less than 50% cross sectional diameter stenosis. ALL ABOVE CRITERIA BY NASCET. 3. There is calcified plaque formation of the right cavernous carotid artery, with a mild stenosis (less than 50%). ALL ABOVE CRITERIA BY NASCET. 4. There is calcified plaque formation of the left cavernous carotid artery, with a mild stenosis (less than 50%). ALL ABOVE CRITERIA BY NASCET. Electronically Signed: Gen Hagan MD at 15:55 EDT ,
[2023-06-11 14:05] LABS: Absolute Lymphocyte Count 3.19 X10^3/uL (0.83-4.51); Absolute Neutrophil Count 4.9 X10^3/uL (2.0-7.7); Basophil# 0.08 X10^3/uL; Basophil% 0.9 % (0-1); Eosinophil# 0.17 X10^3/uL; Eosinophils% 1.8 % (0-5); Hematocrit 38.8 % (37-47); Hemoglobin 12.5 g/dL (12.0-15.0); Lymphocyte # 3.19 X10^3/ul (0.83-4.51); Lymphocyte % 34.5 % (19-41); Mean Corp Hgb Conc 32.2 g/dL (32-36); Mean Corpuscular Hgb 30.4 pg (27.0-32.0); Mean Corpuscular Volume 94.4 fL (81-99); Mean Platelet Vol. 9.9 fl (6.2-12.0); Monocyte# 0.88 X10^3/uL; Monocyte% 9.5 % (0-10); NRBC Flagged by Analyzer 0 % (0-5); Neutrophil # 4.88 X10^3/uL (2.7-7.7); Neutrophil % 52.8 % (47-70); Platelet Count 235 K/mm3 (150-450); RBC Distribution Width CV 14.2 % (11.6-14.6); RBC Distribution Width SD 49.7 fl (35.1-43.9); Red Blood Count 4.11 M/mm3 (4.2-5.4); White Blood Count 9.3 K/mm3 (4.4-11.0)
[2023-06-11] MEDS: 0.9% Normal Saline 1,000 ML 150 ML IV (14:16)
[2023-06-11] MEDS: LORazepam 2 MG/ML Syringe 1 MG IV (14:16)
[2023-06-11] MEDS: Haloperidol Lactate 5 MG/ML Vial 2 MG IM ×2 (14:18→14:50)
[2023-06-11 14:22] LABS: ALB/GLOB Ratio 0.9 RATIO (0.9-2.4); AST(SGOT) 85 U/L (15-37); Alanine Aminotransfer ALT/SGPT 62 U/L (13-56); Albumin, Serum 3.2 g/dL (3.2-5.0); Alkaline Phosphatase 106 U/L (45-117); Anion Gap 3 (5-15); BUN 20 mg/dL (7-18); BUN/Creat Ratio 25.2 RATIO (10-20); Calcium,Total 9.3 mg/dL (8.5-10.1); Chloride 111 mmol/L (98-107); Creatinine, Serum 0.79 mg/dL (0.55-1.02); EST Glomerular Filtration Rate 75 mL/min (>60); Est Glom Filt Rate - Afr Amer 91 mL/min (>60); Estimated Creatinine Clearance 39.04 ml/min; Globulin 3.6 g/dL (2.2-4.2); Glucose 104 mg/dL (74-106); Potassium 3.7 mmol/L (3.5-5.1); Protein, Total 6.8 g/dL (6.4-8.2); Sodium Level 144 mmol/L (136-145); Troponin-I HS 7 pg/mL (3.0-54.0)
[2023-06-11] MEDS: Ziprasidone IM 20 MG/ML VIAL IM (15:56)
[2023-06-11 16:36] LABS: Bacteria 0 SEEN /hpf (None Seen); Mucous, Urine 0 SEEN /hpf (<or=2+); Squamous Epithelial Cells - UA 0 SEEN /hpf (5-10); White Blood Cells 0 SEEN /hpf (0-5)
[2023-06-11 16:40] LABS: Color, Urine Yellow (Yellow); Glucose, Dipstick Normal (Normal); Ketone-Dipstick Negative (Negative); Leukocyte Esterase-Dipstick Negative /ul (Negative); Nitrite-Dipstick Negative (Negative); Occult Blood-Urine 10 /ul (Negative); Protein-Dipstick Negative (Negative); Urine Bilirubin Dipstick Negative (Negative); Urine Clarity Clear (Clear); Urine Urobilinogen Normal (Normal); Urine pH 6.5 (5.0 - 8.0)
[2023-06-11 16:50] LABS: Red Blood Cells-Urine 0-5 SEEN /hpf (0-5)
--- NOTE | 2023-06-11 17:44 | PCM.HP.STD ---
[facility] - General General Date of Admission: 06/11/23 Date of Service: 06/11/23 Chief Complaint: Unresponsiveness, last well-known 2300 hrs. yesterday HPI Narrative SCOUT CASTILLO, is a 73 F with history of multiple brain surgery for aneurysm, seizure and fentanyl patch, last discharged on May 29, 2023 with similar unresponsive episode while brought to ED by EMS for unresponsiveness. As per the , she worked on [employer] whole day yesterday and was very tired and she slept about 11:30 PM last night. Her thought later to sleep because she was very tired and tried to wake her up about quarter past 12 noon but she still was sleepy with no response. She was very lethargic therefore EMS was called. She was found to have fentanyl patch and a respiratory rate was decreased to 4/min and was bagged with 15 L oxygen by EMS. Capnography was 30. Pulse 8500, BP 157/87. Fentanyl patch was removed in ED. In ED she was agitated, rolling on the bed, moving her hand. She was given Haldol 4 mg IM, Ativan 1 mg IV, Geodon 20 mg IV and naloxone total 4 mg She is very restless agitated trying to move and remove her IV in ED. [facility] Medical History Abscess of cellulitis of buttock Breast cancer Chronic pain Chronic, continuous use of opioids COLD (chronic obstructive lung disease) Decreased vision History of brain aneurysm repair Uterine cancer Home Medications hydrocodone-acetaminophen 5-325mg 5mg-325mg 1 tab PO BID pain 12/16/15 [History Last Taken Unknown] aspirin 81 mg tablet,delayed release 81 mg PO DAILY heart health 02/01/17 [History Last Taken Unknown] albuterol sulfate 90 mcg/actuation aerosol inhaler 2 inh inhalation Q6H PRN shortness of breath or wheezing #3 ea 04/19/22 [Rx Last Taken Unknown] montelukast 10 mg tablet 10 mg PO QPM pain #90 tabs 11/17/22 [Rx Last Taken Unknown] umeclidinium 62.5 mcg-vilanterol 25 mcg/actuation powdr for inhalation (Anoro Ellipta) 1 inh inhalation QDAY breathing #3 ea 11/17/22 [Rx Last Taken Unknown] atorvastatin 20 mg tablet (Lipitor) 20 mg PO DAILY cholesterol 01/25/23 [History Last Taken Unknown] duloxetine 60 mg capsule,delayed release 60 mg PO DAILY mental health 01/25/23 [History Last Taken Unknown] fentanyl 50 mcg/hr transdermal patch 1 patch transdermal Q72H pain 01/25/23 [History Last Taken Unknown] pregabalin 150 mg capsule 150 mg PO BID pain 01/25/23 [History Last Taken Unknown] baclofen 20 mg tablet 20 mg PO TID muscle relaxer #270 tabs 05/26/23 [Rx Last Taken Unknown] amitriptyline 25 mg tablet 25 mg PO QHS sleep #90 tabs 05/27/23 [Rx Last Taken Unknown] Allergy/AdvReac Type Severity Reaction Status Date / Time codeine Allergy Hives Verified 05/26/23 14:33 nitrofurantoin Allergy Hives Verified 05/26/23 14:33 [From Macrobid] nitrofurantoin Allergy Hives Verified 05/26/23 14:33 macrocrystalline [From Macrobid] Food Allergies: Uncoded AdvReac Hives Verified 05/26/23 14:33 Family History Brother Lung cancer Pancreatic cancer Father Bone cancer Sister Pancreatic cancer Other Colon cancer Surgical History History of appendectomy History of back surgery History of hysterectomy Hx of cholecystectomy No pertinent past surgical history Social History Smoking Status: Current every day smoker tobacco type: cigarettes Tobacco: How many years used: 40 second hand exposure: Yes alcohol intake: never substance use type: does not use caffeine: Yes Type: coffee Number of servings: 2 kaylene/jew: [employer] seatbelt use: always ROS ROS Narrative 14 system ROS unobtainable because of unresponsiveness. As per , she reports her hands on the lower abdomen. He does not know whether she has burning micturition. UA was negative. He stated she had 3 back surgeries and 2 brain surgeries. History of seizure Review of Systems ROS Unobtainable: due to encephalopathy Vital Signs Vital Signs Vital Signs: 06/11/23 13:54 06/11/23 14:10 06/11/23 14:39 Temperature 97.1 F L Temperature Source Temporal Pulse Rate 134 H 91 89 Respiratory Rate 22 H 96 H 19 H Blood Pressure 147/50 H 164/93 H Blood Pressure Mean 82 116 Pulse Ox 97 94 99 Oxygen Delivery Method Room Air Nasal Cannula Nasal Cannula Oxygen Flow Rate (L/min) 2 2 06/11/23 15:28 06/11/23 16:14 06/11/23 16:16 Temperature Temperature Source Pulse Rate 79 83 Respiratory Rate 24 H 18 Blood Pressure 135/82 H Blood Pressure Mean 99 Pulse Ox 97 100 Oxygen Delivery Method Room Air Nasal Cannula Oxygen Flow Rate (L/min) 2 06/11/23 17:24 06/11/23 17:30 Temperature 98 F Temperature Source Temporal Pulse Rate 74 75 Respiratory Rate 18 16 Blood Pressure 125/68 H 125/68 H Blood Pressure Mean 87 87 Pulse Ox 95 97 Oxygen Delivery Method Room Air Room Air Oxygen Flow Rate (L/min) Weight Weight: 116 lb 6.465 oz Body Mass Index (BMI) 21.2 Physical Exam Narrative General: Restless agitated unresponsive. HEENT: No eye spontaneous eye opening. Pupils reactive. Atraumatic, Normocephalic Oral: Oral mucosa and lips very dry. No Gingival or Mucosal Lesions/ Ulcerations Neck: Supple, No JVD, Negative Carotid Bruits Lungs: Air entry diminished in bilateral lung bases. No crepitation/rhonchi Cardiovascular: Regular rate, Regular Rhythm, Normal S1, Normal S2, No murmurs Abdomen: Bowel Sounds Present, Soft, Non Tender, Non-Distended : No renal angle tenderness. No suprapubic tenderness. Extremities: No edema, Capillary Refill Less than 3 Seconds Skin: No rashes, No breakdown Musculoskeletal: No Tenderness to Palpation of Joints or Extremities. ROM and muscle strength could not be evaluated because patient is unresponsive Neurological: Complete neuro exam unobtainable. Patient had multiple antipsychotic medications in ED. No acute focal neurological deficit. Psych/Mental Status: Unresponsive. Results Lab / Micro Data 06/11/23 13:55 06/11/23 13:55 Labs: Laboratory Results - last 24 hr 06/11/23 13:55: WBC 9.3, RBC 4.11 L, Hgb 12.5, Hct 38.8, MCV 94.4, MCH 30.4, MCHC 32.2, RDW Std Deviation 49.7 H, RDW Coeff of Martina 14.2, Plt Count 235, MPV 9.9, Immature Gran % (Auto) 0.500, Neut % (Auto) 52.8, Lymph % (Auto) 34.5, Heard % (Auto) 9.5, Eos % (Auto) 1.8, Baso % (Auto) 0.9, Absolute Neuts (auto) 4.9, Absolute Lymphs (auto) 3.19, Nucleated RBC % 0, Sodium 144, Potassium 3.7, Chloride 111 H, Carbon Dioxide 30.0, Anion Gap 3 L, BUN 20 H, Creatinine 0.79, Estim Creat Clear Calc 39.04, Est GFR (MDRD) Af Amer 91, Est GFR (MDRD) Non-Af 75, BUN/Creatinine Ratio 25.2 H, Glucose 104, Calcium 9.3, Total Bilirubin 0.30, AST 85 H, ALT 62 H, Alkaline Phosphatase 106, Troponin I High Sens 7, Total Protein 6.8, Albumin 3.2, Globulin 3.6, Albumin/Globulin Ratio 0.9 06/11/23 14:55: Ammonia 19.0 06/11/23 16:25: Urine Color Yellow, Urine Clarity Clear, Urine pH 6.5, Ur Specific [place] 1.010, Urine Protein Negative, Urine Glucose (UA) Normal, Urine Ketones Negative, Urine Occult Blood 10 H, Urine Nitrite Negative, Urine Bilirubin Negative, Urine Urobilinogen Normal, Ur Leukocyte Esterase Negative, Urine RBC 0-5 SEEN, Urine WBC 0 SEEN, Ur Squamous Epith Cells 0 SEEN, Urine Bacteria 0 SEEN, Urine Mucus 0 SEEN Radiology Impression Brain CT 06/11/23 13:59 IMPRESSION: There are no acute findings. Chronic involutional changes of the brain. Electronically Signed: Gen Hagan MD at 15:37 EDT , Head/Neck CTA 06/11/23 14:03 IMPRESSION: 1. There is mild atherosclerotic plaque formation of the origin of the right internal carotid artery with less than 50% cross sectional diameter stenosis. ALL ABOVE CRITERIA BY NASCET. 2. There is mild atherosclerotic plaque formation of the origin of the left internal carotid artery with less than 50% cross sectional diameter stenosis. ALL ABOVE CRITERIA BY NASCET. 3. There is calcified plaque formation of the right cavernous carotid artery, with a mild stenosis (less than 50%). ALL ABOVE CRITERIA BY NASCET. 4. There is calcified plaque formation of the left cavernous carotid artery, with a mild stenosis (less than 50%). ALL ABOVE CRITERIA BY NASCET. Electronically Signed: Gen Hagan MD at 15:55 EDT , Assessment & Plan Assessment/Plan (1) Altered mental status: QUALIFIERS: Altered mental status type: delirium Qualified Code(s): R41.0 - Disorientation, unspecified (2) Encephalopathy acute: (3) Toxic encephalopathy: PLAN: Plan 1. Acute encephalopathy/altered mental status most likely due to overmedication/toxic encephalopathy: Patient is being admitted to PCU. Hold on any further antipsychotic/benzodiazepine or pain medication as patient had multiple medications including Ativan, Haldol and Geodon in ED. IV fluid Ringer lactate 100 Emmel per hour. Patient chloride is 111 otherwise no anion gap. UA is bland with negative LE and nitrite. CT head and CTA head and neck was done in ED. CT head does not show acute intracranial changes CT head less than 50% in bilateral ICA and cavernous segment of bilateral ICA similar to previous work-up a week ago. Patient cannot have MRI because of history of aneurysmal clipping. 2 chronic back pain on Duragesic with polyneuropathy with multiple 3 back surgeries: For now patient is unresponsive and oral pain medications are held. 3. History of mild cognitive impairment/dysphagia: Speech therapy, PT and OT ordered 4. History of COPD/obstructive sleep apnea: On DuoNeb as needed. CPAP ordered for night. VTE prophylaxis: Moderate-risk: Lovenox 40 mill subcu daily ordered. Living will/advanced directive/end of life care: Patient does not have living will or advanced directive. She does not have the great power of mechanic chief for health but is next of kin and he takes care at home and by her side in the hospital. After discussion of benefits/risks procedures involved with full code, DNR CC arrest and DNR CC, the patient's opted for DNRCC arrest with no intubation. He agrees that patient underwent multiple surgeries, has multiple comorbidities complicates the present care and expect difficult and delay recovery Chronic back surgeries requires pain and debility therefore I agree with DNR CC arrest with no intubation. As per , patient does not artificial life support including intubation, tube feed, ventilator and/chest compression, central venous catheter, vasopressor and DC shock if needed Total time spent in [id number] encounter in discussion of advanced directive 17 minutes. Laboratory Results 06/11/23 13:55: WBC 9.3, RBC 4.11 L, Hgb 12.5, Hct 38.8, MCV 94.4, MCH 30.4, MCHC 32.2, RDW Std Deviation 49.7 H, RDW Coeff of Martina 14.2, Plt Count 235, MPV 9.9, Immature Gran % (Auto) 0.500, Neut % (Auto) 52.8, Lymph % (Auto) 34.5, Heard % (Auto) 9.5, Eos % (Auto) 1.8, Baso % (Auto) 0.9, Absolute Neuts (auto) 4.9, Absolute Lymphs (auto) 3.19, Nucleated RBC % 0, Sodium 144, Potassium 3.7, Chloride 111 H, Carbon Dioxide 30.0, Anion Gap 3 L, BUN 20 H, Creatinine 0.79, Estim Creat Clear Calc 39.04, Est GFR (MDRD) Af Amer 91, Est GFR (MDRD) Non-Af 75, BUN/Creatinine Ratio 25.2 H, Glucose 104, Calcium 9.3, Total Bilirubin 0.30, AST 85 H, ALT 62 H, Alkaline Phosphatase 106, Troponin I High Sens 7, Total Protein 6.8, Albumin 3.2, Globulin 3.6, Albumin/Globulin Ratio 0.9 06/11/23 14:55: Ammonia 19.0 06/11/23 16:25: Urine Color Yellow, Urine Clarity Clear, Urine pH 6.5, Ur Specific [place] 1.010, Urine Protein Negative, Urine Glucose (UA) Normal, Urine Ketones Negative, Urine Occult Blood 10 H, Urine Nitrite Negative, Urine Bilirubin Negative, Urine Urobilinogen Normal, Ur Leukocyte Esterase Negative, Urine RBC 0-5 SEEN, Urine WBC 0 SEEN, Ur Squamous Epith Cells 0 SEEN, Urine Bacteria 0 SEEN, Urine Mucus 0 SEEN Clinical Impression(s) from Imaging Studies Brain CT 06/11/23 13:59 IMPRESSION: There are no acute findings. Chronic involutional changes of the brain. Head/Neck CTA 06/11/23 14:03 IMPRESSION: 1. There is mild atherosclerotic plaque formation of the origin of the right internal carotid artery with less than 50% cross sectional diameter stenosis. ALL ABOVE CRITERIA BY NASCET. 2. There is mild atherosclerotic plaque formation of the origin of the left internal carotid artery with less than 50% cross sectional diameter stenosis. ALL ABOVE CRITERIA BY NASCET. 3. There is calcified plaque formation of the right cavernous carotid artery, with a mild stenosis (less than 50%). ALL ABOVE CRITERIA BY NASCET. 4. There is calcified plaque formation of the left cavernous carotid artery, with a mild stenosis (less than 50%). ALL ABOVE CRITERIA BY NASCET. Charges/Coding Visit Charges Inpatient E&M: 01822 Init Hosp L3 Procedures Hospitalists Procedures: 20162 Advncd Care Plan 30 Min
[2023-06-11 18:13] LABS: Magnesium 2.1 mg/dL (1.6-2.6)
--- NOTE | 2023-06-11 18:58 | NURSING ---
unable to adequately complete the NIH assessment due to patient mental status. Patient will move all extremities voluntarily and moan, however no words, eye contact, or participation with ataxia or sensory.
--- NOTE | 2023-06-11 19:30 | NURSING ---
Pt's respiratory rate is very irregular. Notified Dr. Alcantar. Order received for narcan x1. Also states he will have Dr. Thomas evaluate her. Pt is very difficult to arouse.
[2023-06-11] MEDS: Naloxone 0.4 MG/ML Syringe IV (19:46)
[2023-06-11] MEDS: 0.9% Saline Lock 10 ML Syringe IV (19:48)
--- NOTE | 2023-06-11 19:50 | NURSING ---
Messaged Dr Alcantar regarding concern over patients status. Pt has been having periods of apnea and only is responding to sternal rub. Returned call states he will have Dr Thomas evaluate patient
[2023-06-11] MEDS: Lactated Ringers 1,000 ML 100 ML IV (19:55)
--- NOTE | 2023-06-11 19:56 | NURSING ---
Addendum entered by Jannette John 06/11/23 20:35: Dr mtz in to assess Original Note: Narcan dose administered. Dr. Mtz in to assess patient. States he does not feel the need to move her to ICU since she is a DNR, Will continue to monitor her closely. Pt is more alert after narcan dose. Still not responding to staff, but apnea is improved.
--- NOTE | 2023-06-11 19:56 | NURSING ---
Dr. Thomas assessed patient as narcan was being
--- NOTE | 2023-06-11 20:38 | NURSING ---
Order for ICU transfer received from Dr Thomas. Nursing mushroom growing supervisor notified.
[2023-06-11] MEDS: Enoxaparin 40 MG/0.4 ML Syringe SC (21:55)
--- NOTE | 2023-06-11 22:00 | NURSING ---
NIH difficult to assess resulted at 14 consistent with previous. Pt does not follow direction and only responds to pain.
[2023-06-11] MEDS: Ipratropium/Albuterol Sulfate 3 ML AMPUL.NEB INHALATION (23:05)
--- NOTE | 2023-06-11 23:22 | NURSING ---
Dr Thomas notified of bladder retention of >700 with bladder scan. Order for brady cath received since was cathed earlier tonight. Pt is also having periods of apnea again. Discussed bipap vs narcan again. Order received for bipap. 18 F Brady catheter placed. Pt tolerated well. Drained 1000ml immediately.
[2023-06-11 23:44] LABS: Amphetamine Urine VISTA NEGATIVE (<1000 ng/mL); Barbiturate Urine VISTA NEGATIVE (< 200 ng/mL); Benzodiazepine Urine VISTA NEGATIVE (< 200 ng/mL); Cocaine Urine VISTA NEGATIVE (< 300 ng/mL); Ecstacy Urine VISTA NEGATIVE (< 500 ng/mL); Methadone Urine VISTA NEGATIVE (< 300 ng/mL); PCP Urine VISTA NEGATIVE (< 25 ng/mL); THC Urine VISTA NEGATIVE (< 50 ng/mL); Vista UDS pH Range 6
[2023-06-12] VITALS (14 sets, daily range): BP systolic 101–126; BP diastolic 50–69; PULSE 61–90; RESP 14–27; TEMP 36.4–36.8; O2SAT 97–100
[2023-06-12] MEDS: Ipratropium/Albuterol Sulfate 3 ML AMPUL.NEB INHALATION ×6 (02:40→22:58)
[2023-06-12] MEDS: Lactated Ringers 1,000 ML 100 ML IV (05:50)
[2023-06-12] MEDS: Acetaminophen 325 MG Tablet 650 MG PO ×2 (09:55→20:12)
[2023-06-12] MEDS: Enoxaparin 40 MG/0.4 ML Syringe SC (09:56)
[2023-06-12] MEDS: Aspirin E.C. 81 MG Tablet PO (09:56)
--- NOTE | 2023-06-12 12:32 | PN.HOSP_ITS ---
Reason for Visit Reason for Visit: Diagnoses Unspecified toxic encephalopathy (06/11/23) Encephalopathy, unspecified (06/11/23) Disorientation, unspecified (06/11/23) Subjective Subjective Patient was seen and examined today, she is alert but she could not tell me the date, she told nursing earlier today that she was in the hospital. Patient co mplained of pain this afternoon, requested that she be given pain medication and I placed her on [place] which she takes at home. Objective Data Objective Data Vital Signs: Vital Signs Temp Pulse Resp BP Pulse Ox O2 Del Method O2 Flow Rate 97.8 F 74 22 H 115/63 97 Room Air 2 06/12/23 10:00 06/12/23 10:59 06/12/23 10:59 06/12/23 10:00 06/12/23 10:00 06/12/23 10:00 06/11/23 16:14 FiO2 21 06/12/23 06:56 Oxygen Flow Rate (L/min) 2 Oxygen Delivery Method Room Air Weight: 49.3 kg Body Mass Index (BMI) 20.0 Intake & Output: Intake and Output for Last 24 Hours 06/10/23 06/11/23 06/12/23 23:59 23:59 23:59 Intake Total 710 / 710 1050 / 1050 Output Total 725 / 1725 1450 / 1450 Balance -15 / -1015 -400 / -400 Lab / Micro Data 06/11/23 13:55 06/11/23 13:55 Labs: Laboratory Results - last 24 hr 06/11/23 13:55: WBC 9.3, RBC 4.11 L, Hgb 12.5, Hct 38.8, MCV 94.4, MCH 30.4, MCHC 32.2, RDW Std Deviation 49.7 H, RDW Coeff of Martina 14.2, Plt Count 235, MPV 9.9, Immature Gran % (Auto) 0.500, Neut % (Auto) 52.8, Lymph % (Auto) 34.5, [place] % (Auto) 9.5, Eos % (Auto) 1.8, Baso % (Auto) 0.9, Absolute Neuts (auto) 4.9, Ab solute Lymphs (auto) 3.19, Nucleated RBC % 0, Sodium 144, Potassium 3.7, Chloride 111 H, Carbon Dioxide 30.0, Anion Gap 3 L, BUN 20 H, Creatinine 0.79, Estim Creat Clear Calc 39.04, Est GFR (MDRD) Af Amer 91, Est GFR (MDRD) Non-Af 75, BUN/Creatinine Ratio 25.2 H, Glucose 104, Calcium 9.3, Magnesium 2.1, Total Bilirubin 0.30, AST 85 H, ALT 62 H, Alkaline Phosphatase 106, Troponin I High Sens 7, Total Protein 6.8, Albumin 3.2, Globulin 3.6, Albumin/Globulin Ratio 0.9 06/11/23 14:55: Ammonia 19.0 06/11/23 16:25: Urine Color Yellow, Urine Clarity Clear, Urine pH 6.5, Ur Specific [place] 1.010, Urine Protein Negative, Urine Glucose (UA) Normal, Urine Ketones Negative, Urine Occult Blood 10 H, Urine Nitrite Negative, Urine Bilirubin Negative, Urine Urobilinogen Normal, Ur Leukocyte Esterase Negative, Urine RBC 0-5 SEEN, Urine WBC 0 SEEN, Ur Squamous Epith Cells 0 SEEN, Urine Bacteria 0 SEEN, Urine Mucus 0 SEEN 06/11/23 23:06: Urine Opiates Screen POSITIVE H, Urine Methadone Screen NEGATIVE, Ur Barbiturates Screen NEGATIVE, Ur Phencyclidine Scrn NEGATIVE, Ur Amphetamines Screen NEGATIVE, MDMA (Ecstasy) Screen NEGATIVE, U Benzodiazepines Scrn NEGATIVE, Urine Cocaine Screen NEGATIVE, U Cannabinoids Screen NEGATIVE, Ur Drug Screen Comment Radiography Diagnostic Testing: Radiology Impression Brain CT 06/11/23 13:59 IMPRESSION: There are no acute findings. Chronic involutional changes of the brain. Electronically Signed: Gen Hagan MD at 15:37 EDT Reading Location ID and State: [facility] / [place] , Service support , Head/Neck CTA 06/11/23 14:03 IMPRESSION: 1. There is mild atherosclerotic plaque formation of the origin of the right internal carotid artery with less than 50% cross sectional diameter stenosis. ALL ABOVE CRITERIA BY NASCET. 2. There is mild atherosclerotic plaque formation of the origin of the left internal carotid artery with less than 50% cross sectional diameter stenosis. ALL ABOVE CRITERIA BY NASCET. 3. There is calcified plaque formation of the right cavernous carotid artery, with a mild stenosis (less than 50%). ALL ABOVE CRITERIA BY NASCET. 4. There is calcified plaque formation of the left cavernous carotid artery, with a mild stenosis (less than 50%). ALL ABOVE CRITERIA BY NASCET. Electronically Signed: Gen Hagan MD at 15:55 EDT Reading Location ID and State: [facility] / [place] , Service support , Physical Exam Const alert and no apparent distress Constitutional Narrative: Patient appears cachectic, she appears older than her stated age General Appearance: cooperative and well developed Orientation / Consciousness: awake and oriented to person HEENT normocephalic, head/scalp atraumatic and moist oral mucous membranes Eyes PERRL, EOMs intact bilaterally and conjunctivae normal Neck supple, no JVD, thyroid normal and no carotid bruits General: trachea midline Resp normal respiratory effort, no retractions, no use of accessory muscles and clear to auscultation bilaterally Auscultation: Negative for rales, rhonchi or wheezes Cardio regular rate, regular rhythm, S1 normal heart sound, S2 normal heart sound, no murmurs, no rub and no gallops GI normal to inspection, nondistended, normoactive bowel sounds, soft to palpation, non-tender and non-distended Extremity no clubbing, cyanosis or edema Skin no rashes or lesions noted General Skin Exam: no breakdown Neuro CN's II-XII intact bilaterally, moves all extremities, no focal motor deficits and no sensory deficits noted Sensorium / Orientation: awake and alert Speech: speech normal Psych Psych Narrative: Patient exhibits mild confusion, she does not answer all questions appropriately. Assessment & Plan Assessment/Plan (1) Encephalopathy acute: PLAN: Plan 1. Toxic encephalopathy-secondary to medication reaction, again patient's fentanyl patch will be held at this time, due to her complaints of pain I have elected to place her back on [place] which she takes at home. #2 chronic pain syndrome-complicates care, medical course, recovery, and prognosis #3 chronic obstructive pulmonary disease-patient is on aerosol treatments #4 hyperlipidemia-patient is on Lipitor #5 cerebrovascular disease-patient is on aspirin 81 mg daily #6 obstructive sleep apnea-patient is on CPAP at night #7 polyneuropathy with chronic pain-complicates care, medical course, recovery, and prognosis Total clinical time spent by myself addressing patient's medical issues, reviewing all of her data, and collaborating with patient's care team: 35 minutes Charges/Coding Visit Charges Inpatient E&M: 31465 Subs Hosp L2
[2023-06-12] MEDS: HYDROcodone Bitartrate/Apap 5/325 Tablet PO ×2 (13:34→20:11)
[2023-06-12] MEDS: 0.9% Saline Lock 10 ML Syringe IV (20:12)
[2023-06-12] MEDS: Atorvastatin Calcium 20 MG Tablet PO (20:13)
[2023-06-12] MEDS: QUEtiapine 25 MG Tablet 12.5 MG PO (20:13)
[2023-06-13] VITALS (11 sets, daily range): BP systolic 107–129; BP diastolic 62–72; PULSE 77–97; RESP 14–25; TEMP 36.3–37.3; O2SAT 95–100; BMI 19.7
[2023-06-13] MEDS: Ipratropium/Albuterol Sulfate 3 ML AMPUL.NEB INHALATION ×4 (07:18→21:00)
--- NOTE | 2023-06-13 08:48 | PCM.PN.HOSP ---
Reason for Visit Reason for Visit: Diagnoses Unspecified toxic encephalopathy (06/11/23) Encephalopathy, unspecified (06/11/23) Disorientation, unspecified (06/11/23) Subjective Subjective Patient is a 73-year-old lady who was brought in after she was found unresponsive by her . An assessment of toxic encephalopathy secondary to narcotic use made admitted to the regular nursing floor for further management Objective Data Objective Data Vital Signs: Vital Signs Temp Pulse Resp BP Pulse Ox O2 Del Method O2 Flow Rate 97.4 F L 77 18 129/72 H 99 Room Air 2 06/13/23 01:59 06/13/23 01:59 06/13/23 01:59 06/13/23 01:59 06/13/23 01:59 06/13/23 02:02 06/11/23 16:14 FiO2 21 06/13/23 01:41 Oxygen Flow Rate (L/min) 2 Oxygen Delivery Method Room Air Weight: 48.9 kg Body Mass Index (BMI) 19.7 Intake & Output: Intake and Output for Last 24 Hours 06/11/23 06/12/23 06/13/23 23:59 23:59 23:59 Intake Total 710 / 710 2111.67 / 2111.67 Output Total 725 / 1725 1550 / 1750 200 / 200 Balance -15 / -1015 561.67 / 361.67 -200 / -200 Lab / Micro Data 06/11/23 13:55 06/11/23 13:55 Physical Exam Narrative GENERAL: cooperative HEENT: Atraumatic; normocephalic EYES; Anicteric, Normal Conjunctiva NECK; supple, normal thyroid, RESPIRATORY: Diminished to auscultation CARDIOVASCULAR: Regular S1 S2, GI: soft, normoactive bowel sounds, : No Renal angle tenderness; EXTREMITIES: No edema, no clubbing, MUSCULOSKELETAL: no muscle wasting NEURO: Awake; no lateralizing signs. SKIN: No Rash PSYCH; Flat affect Assessment & Plan Assessment/Plan (1) Encephalopathy acute: PLAN: Plan Patient is a 73-year-old lady who was brought in after she was found unresponsive by her . An assessment of toxic encephalopathy secondary to narcotic use made admitted to the regular nursing floor for further management 1. Toxic encephalopathy Secondary to narcotic use. Patient was found to have a fentanyl patch which has since been stopped 2. Chronic pain syndrome ? Patient was on narcotics which attributed to her encephalopathy. Currently being adjusted 3. COPD ? Currently not in exacerbation aerosol treatment as needed 4. Dyslipidemia ? Patient is on atorvastatin did continue 6. Previous history of CVA ? Without any residual effects patient is on aspirin as well as atorvastatin 7. Obstructive sleep apnea ? Consistent use of CPAP at night encouraged 8. Polyneuropathy in the setting of chronic pain syndrome ? Patient is on Lyrica 9. Physical deconditioning - Requested for PT OT eval and social service agency director to assist with discharge planning 10. DVT prophylaxis ? SC Lovenox Time spent in the patient's overall evaluation,decision-making process, review of diagnostic data, adjustment of management, discussion with other providers, nursing nursing and ancillary staff involved in patient's care documentation, 35 Minutes Charges/Coding Visit Charges Inpatient E&M: 39348 Subs Hosp L2
[2023-06-13] MEDS: Enoxaparin 40 MG/0.4 ML Syringe SC (09:07)
[2023-06-13] MEDS: QUEtiapine 25 MG Tablet 12.5 MG PO ×2 (09:08→21:54)
[2023-06-13] MEDS: Aspirin E.C. 81 MG Tablet PO (09:08)
[2023-06-13] MEDS: 0.9% Saline Lock 10 ML Syringe IV ×2 (09:08→22:00)
--- NOTE | 2023-06-13 10:43 | CASEMGMT ---
Discharge Planning SNF list created and given to SW. Yuki Urena, Discharge Planning Asst.
--- NOTE | 2023-06-13 10:52 | CASEMGMT ---
SW was informed by physician that patient and her are interested in fpc facility for patient. SW met with patient and her . Introduced self and role at [facility]. Both confirmed they would like SNF for patient. SW provided patient and her with a list of fpc facility providers including quality and resource use data and consistent with patient?s preferred geographic region, medical needs, and insurance network were provided from the [employer] Guide. Patient's asked about [facility] TCU. SW let them know SW will make a referral and SW can let them know whether or not they can take patient. SW explained how the snf process works. SW made a referral to [facility] in TCU. Maggie DE LA FUENTE
--- NOTE | 2023-06-13 12:52 | CHAPLAIN ---
Type of Pastoral Visit _x__ Initial Visit ___ Follow-up Visit ___ On-call Visit ___ General Patient Visit ___ Spiritual Assessment ___ Family Conference ___ Bereavement ___ Rapid Response ___ Code Blue ___ Other (describe below) Pastoral Care Referral From _x__ Patient ___ Family ___ Nurse ___ Physician ___ Mortgage Loan Counselor ___ Progressive Care Manager ___ Other (describe below) Sacrament/Intervention _x__ Active listening ___ Anointing ___ Congregational ___ Bereavement ___ Communion ___ Vesna exploration ___ ___ Life review _x__ Prayer ___ Reconciliation ___ Sacrament of Sick _x__ Supportive presence ___ Wedding ___ Other (describe below) Pastoral Comments patient and spouse are in the room; pt answers questions but slowly and often looks to her when question is asked; both indicate that patient is doing better; spouse gives a brief history of the patient's many surgeries; pt states that prayer is first reason that she has come through the past health issues; pt and spouse welcome prayers and presence of spiritual care
--- NOTE | 2023-06-13 13:40 | CASEMGMT ---
TCU is not able to accept patient. JANETT called patient's and let him know this information. SW went over the list with him and he was in agreement with referrals to [facility] and [facility]. JANETT asked Yuki packer/crow senior planning analyst to please send referrals. Maggie Shelton RESIDENT CARE TECHNICIAN SUDHAKAR
--- NOTE | 2023-06-13 13:46 | CASEMGMT ---
Discharge Planning [facility]. Yuki Urena, Discharge Planning Asst.
[2023-06-13] MEDS: HYDROcodone Bitartrate/Apap 5/325 Tablet PO ×2 (14:28→20:32)
[2023-06-13] MEDS: Acetaminophen 325 MG Tablet 650 MG PO (18:40)
[2023-06-13] MEDS: Atorvastatin Calcium 20 MG Tablet PO (21:55)
[2023-06-14] VITALS (10 sets, daily range): BP systolic 116–144; BP diastolic 69–84; PULSE 78–88; RESP 16–24; TEMP 36.6–37.1; O2SAT 96–100; BMI 19.3
[2023-06-14] MEDS: Acetaminophen 325 MG Tablet 650 MG PO ×2 (00:42→07:21)
[2023-06-14] MEDS: HYDROcodone Bitartrate/Apap 5/325 Tablet PO ×3 (02:34→20:55)
[2023-06-14 06:14] LABS: Absolute Lymphocyte Count 2.16 X10^3/uL (0.83-4.51); Absolute Neutrophil Count 7.6 X10^3/uL (2.0-7.7); Basophil# 0.05 X10^3/uL; Basophil% 0.5 % (0-1); Eosinophil# 0.01 X10^3/uL; Eosinophils% 0.1 % (0-5); Hematocrit 35.6 % (37-47); Hemoglobin 11.5 g/dL (12.0-15.0); Lymphocyte # 2.16 X10^3/ul (0.83-4.51); Lymphocyte % 20.2 % (19-41); Mean Corp Hgb Conc 32.3 g/dL (32-36); Mean Corpuscular Hgb 30.3 pg (27.0-32.0); Mean Corpuscular Volume 93.7 fL (81-99); Mean Platelet Vol. 10.7 fl (6.2-12.0); Monocyte% 8.4 % (0-10); NRBC Flagged by Analyzer 0 % (0-5); Neutrophil # 7.55 X10^3/uL (2.7-7.7); Neutrophil % 70.5 % (47-70); Platelet Count 198 K/mm3 (150-450); RBC Distribution Width CV 14.6 % (11.6-14.6); RBC Distribution Width SD 50.5 fl (35.1-43.9); White Blood Count 10.7 K/mm3 (4.4-11.0)
[2023-06-14] MEDS: Ipratropium/Albuterol Sulfate 3 ML AMPUL.NEB INHALATION ×4 (07:02→19:45)
[2023-06-14 07:03] LABS: Anion Gap 7 (5-15); BUN 21 mg/dL (7-18); BUN/Creat Ratio 28.8 RATIO (10-20); Calcium,Total 9.1 mg/dL (8.5-10.1); Chloride 115 mmol/L (98-107); Creatinine, Serum 0.73 mg/dL (0.55-1.02); EST Glomerular Filtration Rate 83 mL/min (>60); Est Glom Filt Rate - Afr Amer 100 mL/min (>60); Estimated Creatinine Clearance 37.32 ml/min; Glucose 94 mg/dL (74-106); Magnesium 2.1 mg/dL (1.6-2.6); Phosphorus 3.6 mg/dL (2.5-4.9); Potassium 2.6 mmol/L (3.5-5.1); Sodium Level 146 mmol/L (136-145)
--- NOTE | 2023-06-14 08:21 | PCM.PN.HOSP ---
Reason for Visit Reason for Visit: Diagnoses Unspecified toxic encephalopathy (06/11/23) Encephalopathy, unspecified (06/11/23) Disorientation, unspecified (06/11/23) Subjective Subjective Patient seen diagnostic data significant for potassium of 2.6 correction initiated patient also complains of significant back pain started on Lidoderm patch Objective Data Objective Data Vital Signs: Vital Signs Temp Pulse Resp BP Pulse Ox O2 Del Method O2 Flow Rate 98 F 83 18 129/83 H 98 Room Air 2 06/14/23 02:47 06/14/23 02:47 06/14/23 02:47 06/14/23 02:47 06/14/23 02:47 06/14/23 02:47 06/11/23 16:14 FiO2 21 06/13/23 01:41 Oxygen Flow Rate (L/min) 2 Oxygen Delivery Method Room Air Weight: 47.9 kg Body Mass Index (BMI) 19.3 Intake & Output: Intake and Output for Last 24 Hours 06/12/23 06/13/23 06/14/23 23:59 23:59 23:59 Intake Total 2111.67 / 2111.67 690 / 690 Output Total 1550 / 1750 955 / 955 100 / 100 Balance 561.67 / 361.67 -265 / -265 -100 / -100 Lab / Micro Data 06/14/23 05:24 06/14/23 05:24 Labs: Laboratory Results - last 24 hr 06/14/23 05:24: WBC 10.7, RBC 3.80 L, Hgb 11.5 L, Hct 35.6 L, MCV 93.7, MCH 30.3, MCHC 32.3, RDW Std Deviation 50.5 H, RDW Coeff of Martina 14.6, Plt Count 198, MPV 10.7, Immature Gran % (Auto) 0.300, Neut % (Auto) 70.5 H, Lymph % (Auto) 20.2, [place] % (Auto) 8.4, Eos % (Auto) 0.1, Baso % (Auto) 0.5, Absolute Neuts (auto) 7.6, Absolute Lymphs (auto) 2.16, Nucleated RBC % 0, Sodium 146 H, Potassium 2.6 L*, Chloride 115 H, Carbon Dioxide 24.0, Anion Gap 7, BUN 21 H, Creatinine 0.73, Estim Creat Clear Calc 37.32, Est GFR (MDRD) Af Amer 100, Est GFR (MDRD) Non-Af 83, BUN/Creatinine Ratio 28.8 H, Glucose 94, Calcium 9.1, Phosphorus 3.6, Magnesium 2.1 Physical Exam Narrative GENERAL: cooperative HEENT: Atraumatic; normocephalic EYES; Anicteric, Normal Conjunctiva NECK; supple, normal thyroid, RESPIRATORY: Diminished to auscultation CARDIOVASCULAR: Regular S1 S2, GI: soft, normoactive bowel sounds, : No Renal angle tenderness; EXTREMITIES: No edema, no clubbing, MUSCULOSKELETAL: no muscle wasting NEURO: Awake; no lateralizing signs. SKIN: No Rash PSYCH; Flat affect Assessment & Plan Assessment/Plan (1) Encephalopathy acute: PLAN: Plan Patient is a 73-year-old lady who was brought in after she was found unresponsive by her . An assessment of toxic encephalopathy secondary to narcotic use made admitted to the regular nursing floor for further management 1. Toxic encephalopathy Secondary to narcotic use. Patient was found to have a fentanyl patch which has since been stopped 2. Chronic pain syndrome ? Patient was on narcotics which attributed to her encephalopathy. Currently being adjusted 3. COPD ? Currently not in exacerbation aerosol treatment as needed 4. Dyslipidemia ? Patient is on atorvastatin did continue 6. Previous history of CVA ? Without any residual effects patient is on aspirin as well as atorvastatin 7. Obstructive sleep apnea ? Consistent use of CPAP at night encouraged 8. Polyneuropathy in the setting of chronic pain syndrome ? Patient is on Lyrica 9. Physical deconditioning - Requested for PT OT eval and dialysis social worker to assist with discharge planning 10. DVT prophylaxis ? SC Lovenox 11. Hypokalemia ? Corrected per protocol Time spent in the patient's overall evaluation,decision-making process, review of diagnostic data, adjustment of management, discussion with other providers, nursing nursing and ancillary staff involved in patient's care documentation, 35 Minutes Charges/Coding Visit Charges Inpatient E&M: 51358 Subs Hosp L2
[2023-06-14] MEDS: Aspirin E.C. 81 MG Tablet PO (08:51)
[2023-06-14] MEDS: Potassium Chloride Oral Tablet 20 MEQ PO ×2 (08:51→17:49)
[2023-06-14] MEDS: Potassium Chloride 10mEq/100mL 10 MEQ/100 ML IV.SOLN. 100 MEQ IV BOLUS (08:52)
--- NOTE | 2023-06-14 09:49 | CASEMGMT ---
Discharge Planning Patient has been declined by [facility] d/t no female bed availability. Awaiting response from [facility]. Yuki Urena, Discharge Planning Asst.
[2023-06-14] MEDS: Enoxaparin 40 MG/0.4 ML Syringe SC (10:16)
[2023-06-14] MEDS: QUEtiapine 25 MG Tablet 12.5 MG PO ×2 (10:17→20:46)
[2023-06-14] MEDS: Potassium Chloride 10mEq/100mL 10 MEQ/100 ML IV.SOLN. 50 MEQ IV BOLUS ×3 (10:41→15:02)
--- NOTE | 2023-06-14 11:19 | CASEMGMT ---
Discharge Planning Updates [facility] to [facility]. Yuki Urena, Discharge Planning Asst.
[2023-06-14] MEDS: Lidocaine 5% Patch 2 PATCH TOPICAL (12:37)
--- NOTE | 2023-06-14 13:31 | CASEMGMT ---
[facility] accepted patient and will start the pre-cert. JANETT called patient's and notified him that [facility] has accepted patient. Plan: d/c to [facility] pending insurance approval. Maggie DE LA FUENTE
--- NOTE | 2023-06-14 18:23 | NURSING ---
Held ensure drink, patient vomited after consuming dinner.
[2023-06-14] MEDS: Atorvastatin Calcium 20 MG Tablet PO (20:46)
[2023-06-14] MEDS: Ensure Plus High Protein 120 ML LIQUID PO (20:55)
--- NOTE | 2023-06-14 23:20 | CPS ---
Pt refused to wear BIPAP for tonight.
[2023-06-15] VITALS (9 sets, daily range): BP systolic 105–133; BP diastolic 57–79; PULSE 73–92; RESP 16–20; TEMP 36.4–37.1; O2SAT 96–100; BMI 19.3; BMI 19.9
[2023-06-15] MEDS: HYDROcodone Bitartrate/Apap 5/325 Tablet PO ×3 (03:45→22:10)
[2023-06-15 06:29] LABS: Absolute Lymphocyte Count 1.92 X10^3/uL (0.83-4.51); Absolute Neutrophil Count 8.2 X10^3/uL (2.0-7.7); Basophil# 0.06 X10^3/uL; Basophil% 0.5 % (0-1); Eosinophil# 0.01 X10^3/uL; Eosinophils% 0.1 % (0-5); Hematocrit 35.6 % (37-47); Hemoglobin 11.8 g/dL (12.0-15.0); Lymphocyte # 1.92 X10^3/ul (0.83-4.51); Lymphocyte % 17.2 % (19-41); Mean Corp Hgb Conc 33.1 g/dL (32-36); Mean Corpuscular Hgb 30.6 pg (27.0-32.0); Mean Corpuscular Volume 92.2 fL (81-99); Mean Platelet Vol. 10.7 fl (6.2-12.0); Monocyte# 0.93 X10^3/uL; Monocyte% 8.3 % (0-10); NRBC Flagged by Analyzer 0 % (0-5); Neutrophil # 8.23 X10^3/uL (2.7-7.7); Neutrophil % 73.5 % (47-70); Platelet Count 201 K/mm3 (150-450); RBC Distribution Width CV 14.6 % (11.6-14.6); RBC Distribution Width SD 49.8 fl (35.1-43.9); Red Blood Count 3.86 M/mm3 (4.2-5.4); White Blood Count 11.2 K/mm3 (4.4-11.0)
[2023-06-15] MEDS: Ipratropium/Albuterol Sulfate 3 ML AMPUL.NEB INHALATION ×4 (07:06→19:54)
[2023-06-15 07:10] LABS: Anion Gap 6 (5-15); BUN 23 mg/dL (7-18); BUN/Creat Ratio 34.7 RATIO (10-20); Calcium,Total 9.4 mg/dL (8.5-10.1); Chloride 118 mmol/L (98-107); Creatinine, Serum 0.66 mg/dL (0.55-1.02); EST Glomerular Filtration Rate 93 mL/min (>60); Est Glom Filt Rate - Afr Amer 112 mL/min (>60); Estimated Creatinine Clearance 38.49 ml/min; Glucose 91 mg/dL (74-106); Potassium 3.5 mmol/L (3.5-5.1); Sodium Level 145 mmol/L (136-145)
--- NOTE | 2023-06-15 07:19 | PN.HOSP_ITS ---
Reason for Visit Reason for Visit: Diagnoses Unspecified toxic encephalopathy (06/11/23) Encephalopathy, unspecified (06/11/23) Disorientation, unspecified (06/11/23) Objective Data Objective Data Vital Signs: Vital Signs Temp Pulse Resp BP Pulse Ox O2 Del Method O2 Flow Rate 98.6 F 73 16 133/79 H 100 Room Air 2 06/15/23 03:51 06/15/23 03:51 06/15/23 03:51 06/15/23 03:51 06/15/23 03:51 06/15/23 04:00 06/11/23 16:14 FiO2 21 06/13/23 01:41 Oxygen Flow Rate (L/min) 2 Oxygen Delivery Method Room Air Weight: 49.4 kg Body Mass Index (BMI) 19.9 Intake & Output: Intake and Output for Last 24 Hours 06/13/23 06/14/23 06/15/23 23:59 23:59 23:59 Intake Total 690 / 690 1099.17 / 1099.17 120 / 120 Output Total 955 / 955 300 / 300 100 / 100 Balance -265 / -265 799.17 / 799.17 Lab / Micro Data 06/15/23 05:32 06/15/23 05:32 Labs: Laboratory Results - last 24 hr 06/15/23 05:32: WBC 11.2 H, RBC 3.86 L, Hgb 11.8 L, Hct 35.6 L, MCV 92.2, MCH 30.6, MCHC 33.1, RDW Std Deviation 49.8 H, RDW Coeff of Martina 14.6, Plt Count 201, MPV 10.7, Immature Gran % (Auto) 0.400, Neut % (Auto) 73.5 H, Lymph % (Auto) 17.2 L, [place] % (Auto) 8.3, Eos % (Auto) 0.1, Baso % (Auto) 0.5, Absolute Neuts (auto) 8.2 H, Absolute Lymphs (auto) 1.92, Nucleated RBC % 0, Sodium 145, Potassium 3.5, Chloride 118 H, Carbon Dioxide 21.0, Anion Gap 6, BUN 23 H, Creatinine 0.66, Estim Creat Clear Calc 38.49, Est GFR (MDRD) Af Amer 112, Est GFR (MDRD) Non-Af 93, BUN/Creatinine Ratio 34.7 H, Glucose 91, Calcium 9.4 Physical Exam Narrative GENERAL: cooperative HEENT: Atraumatic; normocephalic EYES; Anicteric, Normal Conjunctiva NECK; supple, normal thyroid, RESPIRATORY: Diminished to auscultation CARDIOVASCULAR: Regular S1 S2, GI: soft, normoactive bowel sounds, : No Renal angle tenderness; EXTREMITIES: No edema, no clubbing, MUSCULOSKELETAL: no muscle wasting NEURO: Awake; no lateralizing signs. SKIN: No Rash PSYCH; Flat affect Assessment & Plan Assessment/Plan (1) Encephalopathy acute: PLAN: Plan Patient is a 73-year-old lady who was brought in after she was found unresponsive by her . An assessment of toxic encephalopathy secondary to narcotic use made admitted to the regular nursing floor for further management 1. Toxic encephalopathy Secondary to narcotic use. Patient was found to have a fentanyl patch which has since been stopped ? 06/15/2023 patient back to baseline 2. Chronic pain syndrome ? Patient was on narcotics which attributed to her encephalopathy. Currently being adjusted 3. COPD ? Currently not in exacerbation aerosol treatment as needed 4. Dyslipidemia ? Patient is on atorvastatin did continue 6. Previous history of CVA ? Without any residual effects patient is on aspirin as well as atorvastatin 7. Obstructive sleep apnea ? Consistent use of CPAP at night encouraged 8. Polyneuropathy in the setting of chronic pain syndrome ? Patient is on Lyrica ? 06/15/2023 did order Lidoderm patch for pain control 9. Physical deconditioning - Requested for PT OT eval and pediatric social worker to assist with discharge planning 10. DVT prophylaxis ? SC Lovenox 11. Hypokalemia ? Corrected per protocol Time spent in the patient's overall evaluation,decision-making process, review of diagnostic data, adjustment of management, discussion with other providers, nursing nursing and ancillary staff involved in patient's care documentation, 35 Minutes Charges/Coding Visit Charges Inpatient E&M: 14860 Subs Hosp L2
[2023-06-15] MEDS: Potassium Chloride Oral Tablet 20 MEQ PO ×2 (08:37→22:15)
[2023-06-15] MEDS: Aspirin E.C. 81 MG Tablet PO (08:37)
--- NOTE | 2023-06-15 09:50 | CASEMGMT ---
Discharge Planning Requested updates for pre-cert sent to [facility] via [facility]. Yuki Urena, Discharge Planning Asst.
[2023-06-15] MEDS: QUEtiapine 25 MG Tablet 12.5 MG PO ×2 (10:03→22:11)
[2023-06-15] MEDS: Enoxaparin 40 MG/0.4 ML Syringe SC (10:03)
[2023-06-15] MEDS: Potassium Chloride Oral Tablet 20 MEQ 40 MEQ PO (15:58)
[2023-06-15] MEDS: Ensure Plus High Protein 120 ML LIQUID PO ×2 (17:13→22:13)
[2023-06-15] MEDS: Acetaminophen 325 MG Tablet 650 MG PO (19:38)
[2023-06-15] MEDS: Atorvastatin Calcium 20 MG Tablet PO (22:13)
[2023-06-16 02:09] VITALS: BMI 19.9
[2023-06-16] MEDS: Acetaminophen 325 MG Tablet 650 MG PO (03:21)
[2023-06-16 03:28] VITALS: BP 124/81; PULSE 77; RESP 18; TEMP 36.9; O2SAT 99
[2023-06-16] MEDS: HYDROcodone Bitartrate/Apap 5/325 Tablet PO ×2 (04:19→10:34)
[2023-06-16 05:19] VITALS: BMI 19.8
[2023-06-16 06:03] LABS: Absolute Lymphocyte Count 2.56 X10^3/uL (0.83-4.51); Absolute Neutrophil Count 5.5 X10^3/uL (2.0-7.7); Basophil# 0.05 X10^3/uL; Basophil% 0.5 % (0-1); Eosinophil# 0.03 X10^3/uL; Eosinophils% 0.3 % (0-5); Hematocrit 34.5 % (37-47); Hemoglobin 11.1 g/dL (12.0-15.0); Lymphocyte # 2.56 X10^3/ul (0.83-4.51); Mean Corp Hgb Conc 32.2 g/dL (32-36); Mean Corpuscular Hgb 30.2 pg (27.0-32.0); Mean Platelet Vol. 10.7 fl (6.2-12.0); Monocyte# 0.93 X10^3/uL; Monocyte% 10.2 % (0-10); NRBC Flagged by Analyzer 0 % (0-5); Neutrophil # 5.54 X10^3/uL (2.7-7.7); Neutrophil % 60.6 % (47-70); Platelet Count 201 K/mm3 (150-450); RBC Distribution Width CV 14.7 % (11.6-14.6); RBC Distribution Width SD 51.3 fl (35.1-43.9); Red Blood Count 3.67 M/mm3 (4.2-5.4); White Blood Count 9.2 K/mm3 (4.4-11.0)
[2023-06-16 06:54] VITALS: PULSE 86; RESP 18; O2SAT 98
[2023-06-16] MEDS: Ipratropium/Albuterol Sulfate 3 ML AMPUL.NEB INHALATION ×2 (06:54→10:26)
[2023-06-16 07:05] LABS: Anion Gap 5 (5-15); BUN 23 mg/dL (7-18); BUN/Creat Ratio 36.7 RATIO (10-20); Calcium,Total 9.3 mg/dL (8.5-10.1); Chloride 117 mmol/L (98-107); Creatinine, Serum 0.63 mg/dL (0.55-1.02); EST Glomerular Filtration Rate 99 mL/min (>60); Est Glom Filt Rate - Afr Amer 120 mL/min (>60); Estimated Creatinine Clearance 38.41 ml/min; Glucose 119 mg/dL (74-106); Sodium Level 145 mmol/L (136-145)
[2023-06-16 08:27] VITALS: BP 117/63; PULSE 84; RESP 16; TEMP 37; O2SAT 99
[2023-06-16 08:39] VITALS: O2SAT 93
--- NOTE | 2023-06-16 10:07 | PCM.PN.HOSP ---
Reason for Visit Reason for Visit: Diagnoses Unspecified toxic encephalopathy (06/11/23) Encephalopathy, unspecified (06/11/23) Disorientation, unspecified (06/11/23) Objective Data Objective Data Vital Signs: Vital Signs Temp Pulse Resp BP Pulse Ox O2 Del Method O2 Flow Rate 98.6 F 84 16 117/63 93 Room Air 2 06/16/23 08:27 06/16/23 08:27 06/16/23 08:27 06/16/23 08:27 06/16/23 08:39 06/16/23 08:27 06/11/23 16:14 FiO2 21 06/13/23 01:41 Oxygen Flow Rate (L/min) 2 Oxygen Delivery Method Room Air Weight: 108 lb 11.006 oz Body Mass Index (BMI) 19.8 Intake & Output: Intake and Output for Last 24 Hours 06/14/23 06/15/23 06/16/23 23:59 23:59 23:59 Intake Total 1099.17 / 1099.17 300 / 300 Output Total 300 / 300 400 / 400 300 / 300 Balance 799.17 / 799.17 -100 / -100 -300 / -300 Lab / Micro Data 06/16/23 05:34 06/16/23 05:34 Labs: Laboratory Results - last 24 hr 06/16/23 05:34: WBC 9.2, RBC 3.67 L, Hgb 11.1 L, Hct 34.5 L, MCV 94.0, MCH 30.2, MCHC 32.2, RDW Std Deviation 51.3 H, RDW Coeff of Martina 14.7 H, Plt Count 201, MPV 10.7, Immature Gran % (Auto) 0.400, Neut % (Auto) 60.6, Lymph % (Auto) 28.0, [place] % (Auto) 10.2 H, Eos % (Auto) 0.3, Baso % (Auto) 0.5, Absolute Neuts (auto) 5.5, Absolute Lymphs (auto) 2.56, Nucleated RBC % 0, Sodium 145, Potassium 4.0, Chloride 117 H, Carbon Dioxide 23.0, Anion Gap 5, BUN 23 H, Creatinine 0.63, Estim Creat Clear Calc 38.41, Est GFR (MDRD) Af Amer 120, Est GFR (MDRD) Non-Af 99, BUN/Creatinine Ratio 36.7 H, Glucose 119 H, Calcium 9.3 Physical Exam Narrative GENERAL: cooperative HEENT: Atraumatic; normocephalic EYES; Anicteric, Normal Conjunctiva NECK; supple, normal thyroid, RESPIRATORY: Diminished to auscultation CARDIOVASCULAR: Regular S1 S2, GI: soft, normoactive bowel sounds, : No Renal angle tenderness; EXTREMITIES: No edema, no clubbing, MUSCULOSKELETAL: no muscle wasting NEURO: Awake; no lateralizing signs. SKIN: No Rash PSYCH; Flat affect Assessment & Plan Assessment/Plan (1) Encephalopathy acute: PLAN: Plan Patient is a 73-year-old lady who was brought in after she was found unresponsive by her . An assessment of toxic encephalopathy secondary to narcotic use made admitted to the regular nursing floor for further management 1. Toxic encephalopathy Secondary to narcotic use. Patient was found to have a fentanyl patch which has since been stopped ? 06/15/2023 patient back to baseline 2. Chronic pain syndrome ? Patient was on narcotics which attributed to her encephalopathy. Currently being adjusted 3. COPD ? Currently not in exacerbation aerosol treatment as needed 4. Dyslipidemia ? Patient is on atorvastatin did continue 6. Previous history of CVA ? Without any residual effects patient is on aspirin as well as atorvastatin 7. Obstructive sleep apnea ? Consistent use of CPAP at night encouraged 8. Polyneuropathy in the setting of chronic pain syndrome ? Patient is on Lyrica ? 06/15/2023 did order Lidoderm patch for pain control 9. Physical deconditioning - Requested for PT OT eval and social service agency director to assist with discharge planning 10. DVT prophylaxis ? SC Lovenox 11. Hypokalemia ? Corrected per protocol Time spent in the patient's overall evaluation,decision-making process, review of diagnostic data, adjustment of management, discussion with other providers, nursing nursing and ancillary staff involved in patient's care documentation, 35 Minutes
[2023-06-16 10:26] VITALS: PULSE 84; RESP 16
--- NOTE | 2023-06-16 10:26 | PCM.TXEXTCAR ---
Diet Diet Order/Speech Therapy: 06/12/23 10:05 Diet: Regular - General Food consistency:: Easy to Chew Liquid Consistency:: Regular/Thin Type of Dietary Supplement:: Ensure Pudding w/ L & D Is pt able to select menu?: No Diet Comments: Direct supervision/assist as needed; Straws ok; 240mL ensure+ w/ breakfast Routine Orders/Code Status Suppository Type: Dulcolax 10mg Suppository Frequency: Daily PRN Therapies Weight Bearing: Weight bearing as tolerated Extremity Affected:: Bilateral Lower Physical Therapy: Eval and Treat Occupational Therapy: Eval and Treat Speech Therapy: Eval and Treat Problem/Diagnosis (1) Encephalopathy acute: Status: Acute Code(s): G93.40 - Encephalopathy, unspecified Plan Patient is a 73-year-old lady who was brought in after she was found unresponsive by her . An assessment of toxic encephalopathy secondary to narcotic use made admitted to the regular nursing floor for further management 1. Toxic encephalopathy Secondary to narcotic use. Patient was found to have a fentanyl patch which has since been stopped ? 06/15/2023 patient back to baseline 2. Chronic pain syndrome ? Patient was on narcotics which attributed to her encephalopathy. Currently being adjusted 3. COPD ? Currently not in exacerbation aerosol treatment as needed 4. Dyslipidemia ? Patient is on atorvastatin did continue 6. Previous history of CVA ? Without any residual effects patient is on aspirin as well as atorvastatin 7. Obstructive sleep apnea ? Consistent use of CPAP at night encouraged 8. Polyneuropathy in the setting of chronic pain syndrome ? Patient is on Lyrica ? 06/15/2023 did order Lidoderm patch for pain control 9. Physical deconditioning - Requested for PT OT eval and psychotherapist social worker to assist with discharge planning 10. DVT prophylaxis ? SC Lovenox 11. Hypokalemia ? Corrected per protocol Time spent in the patient's overall evaluation,decision-making process, review of diagnostic data, adjustment of management, discussion with other providers, nursing nursing and ancillary staff involved in patient's care documentation, 35 Minutes Allergies/Procedures Done in Hospital Allergies codeine Allergy (Verified 05/26/23 14:33) Hives nitrofurantoin [From Macrobid] Allergy (Verified 05/26/23 14:33) Hives nitrofurantoin macrocrystalline [From Macrobid] Allergy (Verified 05/26/23 14:33) Hives Food Allergies: Uncoded Adverse Reaction (Verified 05/26/23 14:33) Hives Type of Care/Length of Stay Estimated LOS: Convalescent Care Less Than 30 days Type of Care Needed: Skilled Rehab Potential: Good Prognosis: Good Additional Orders/Day of Discharge Day of Discharge: 06/16/23 Dietary and Speech Recommendations Dietitian Recommendations/Changes: Continue liberalized Regular Diet with consistency/texture as per FURNITURE BUILDER. Will continue ensure pudding BID w/ lunch and dinner as tolerated. Will add 240 mL ensure plus high protein w/ breakfast meal. Discharge Plan Admission Admit Date/Time: 06/11/23 17:42 Primary Reason for Your Visit: Acute encephalopathy Attending Provider: Luisito Alcantar Primary Care Provider: Cornell Rogers Consulting Providers: Luisito Alcantar; Durga Sosa; Alfred Martinez Discharge Orders/Prescriptions Prescriptions: New quetiapine 25 mg Tablet 12.5 mg PO BID Qty: 0 0RF Rx Instructions: Hold during the daytime if patient is sleepy or lethargic potassium chloride [Klor-Con M20] 20 mEq Tablet,Er Particles/Crystals 20 meq PO BIDCM Qty: 0 0RF Continued albuterol sulfate 90 mcg/actuation HFA aerosol inhaler 2 inh inhalation Q6H PRN (Reason: shortness of breath or wheezing) Qty: 3 3RF Anoro Ellipta 62.5-25 mcg/actuation blister with device 1 inh INHALATION QDAY Qty: 3 3RF montelukast 10 mg tablet 10 mg PO QPM Qty: 90 3RF atorvastatin [Lipitor] 20 mg tablet 20 mg PO DAILY hydrocodone-acetaminophen 1 TABLET tablet 1 tab PO BID aspirin 81 MG tablet,delayed release (DR/EC) 81 mg PO DAILY Changed baclofen 20 mg tablet 10 mg PO TID PRN (Reason: muscle relaxer) Qty: 270 1RF duloxetine 60 mg capsule,delayed release(DR/EC) 30 mg PO DAILY 30 Days Qty: 0 0RF Discontinued fentanyl 50 mcg/hr patch 72 hour 1 patch transdermal Q72H amitriptyline 25 mg tablet 25 mg PO QHS Qty: 90 1RF Hold Instructions: Resume on 06/15/23. Would recommend against continuing this medication but please discuss with your primary care physician pregabalin 150 mg capsule 150 mg PO BID Referrals / Follow Up: Cornell Rogers MD [Primary Care Provider] - Within 2 Weeks Disposition Disposition (needs filled in before D/C Order can be placed): [facility]
[2023-06-16] MEDS: Enoxaparin 40 MG/0.4 ML Syringe SC (10:34)
[2023-06-16] MEDS: Aspirin E.C. 81 MG Tablet PO (10:34)
[2023-06-16] MEDS: Potassium Chloride Oral Tablet 20 MEQ PO (10:34)
[2023-06-16] MEDS: QUEtiapine 25 MG Tablet 12.5 MG PO (10:34)
[2023-06-16] MEDS: Lidocaine 5% Patch 2 PATCH TOPICAL (10:35)
--- NOTE | 2023-06-16 12:11 | DS.PCM_ITS ---
Providers Date of Admission: 06/11/23 Date of Discharge: 06/16/23 Primary Care Physician: Dr. Cornell Rogers MD Reason For Visit: UNERESPONSIVENESS Diagnosis Discharge Diagnosis (1) Encephalopathy acute: Status: Acute Code(s): G93.40 - Encephalopathy, unspecified Plan Patient is a 73-year-old lady who was brought in after she was found unresponsive by her . An assessment of toxic encephalopathy secondary to narcotic use made admitted to the regular nursing floor for further management 1. Toxic encephalopathy Secondary to narcotic use, pregabalin, muscle relaxant, baclofen. Patient also on amitriptyline 25 mg at bedtime and duloxetine 60 mg daily. Patient was found to have a fentanyl patch which has since been stopped 06/16: I talked to the patient's near the bedside patient did not have significant pain during hospital course therefore does not need fentanyl patch and I discontinued it. Baclofen 10 mg 3 times daily as needed as needed for muscle spasm/pain. Amitriptyline changed to 12.5 mg twice daily with holding parameters during daytime. Pregabalin discontinued. Duloxetine dose decreased to 30 mg daily during the daytime. Continue PT OT and fpc. 2. Chronic pain syndrome ? Patient was on narcotics which attributed to her encephalopathy. 06/16: Patient's medication adjusted as mentioned above 3. COPD ? Currently not in exacerbation aerosol treatment as needed 4. Dyslipidemia ? Patient is on atorvastatin did continue 6. Previous history of CVA ? Without any residual effects patient is on aspirin as well as atorvastatin 7. Obstructive sleep apnea ? Consistent use of CPAP at night encouraged 8. Polyneuropathy in the setting of chronic pain syndrome ? Patient is on Lyrica ? 06/15/2023 did order Lidoderm patch for pain control 9. Physical deconditioning - Requested for PT OT eval and social science research assistant to assist with discharge planning 10. DVT prophylaxis ? SC Lovenox 11. Hypokalemia ? Corrected per protocol patient is discharged on potassium supplement. Medications at Discharge Home Medications hydrocodone-acetaminophen 5-325mg 5mg-325mg 1 tab PO BID pain 12/16/15 aspirin 81 mg tablet,delayed release 81 mg PO DAILY heart health 02/01/17 albuterol sulfate 90 mcg/actuation aerosol inhaler 2 inh inhalation Q6H PRN shortness of breath or wheezing #3 ea 04/19/22 montelukast 10 mg tablet 10 mg PO QPM pain #90 tabs 11/17/22 umeclidinium 62.5 mcg-vilanterol 25 mcg/actuation powdr for inhalation (Anoro Ellipta) 1 inh inhalation QDAY breathing #3 ea 11/17/22 atorvastatin 20 mg tablet (Lipitor) 20 mg PO DAILY cholesterol 01/25/23 baclofen 20 mg tablet 10 mg (1/2 x 20 mg) PO TID PRN muscle relaxer #270 tabs 06/16/23 duloxetine 60 mg capsule,delayed release 30 mg (1/2 x 60 mg) PO DAILY mental health 30 days #0 caps 06/16/23 potassium chloride 20 mEq tablet,extended release(part/cryst) (Klor-Con M) 20 meq PO BIDCM #0 tabs 06/16/23 quetiapine 25 mg tablet 12.5 mg (1/2 x 25 mg) PO BID #0 tabs 06/16/23 Physical Exam Narrative Seen and examined. Patient is on normal baseline health. General: Alert, Oriented x3, Cooperative. BMI 19.9 kg/m?. Chronic protein calorie malnutrition. HEENT: Atraumatic, PERRLA, EOMI, Normocephalic Oral: Oral mucosa moist. No Gingival or Mucosal Lesions/ Ulcerations Neck: Supple, No JVD, Negative Carotid Bruits Lungs: Air entry diminished in bilateral lung bases. No crepitation/rhonchi Cardiovascular: Regular rate, Regular Rhythm, Normal S1, Normal S2, No murmurs Abdomen: Bowel Sounds Present, Soft, Non Tender, Non-Distended : No renal angle tenderness. No suprapubic tenderness. Extremities: No edema, Capillary Refill Less than 3 Seconds Skin: No rashes, No breakdown. Loss of subcutaneous fat. Musculoskeletal: Mild muscle atrophy of extremities. Muscle strength 4+/5 at knees and hips joint. No Tenderness to Palpation of Joints or Extremities Neurological: Cranial nerves II-XII grossly intact, DTR 2+/4. No acute focal neurological deficit. Psych/Mental Status: Normal Affect, Appropriate. Weight / BMI Weight Weight: 108 lb 11.006 oz Body Mass Index (BMI) 19.8 ABG / Lab / Microbiology Data 06/16/23 05:34 06/16/23 05:34 Laboratory: Laboratory Results - last 24 hr 06/16/23 05:34: WBC 9.2, RBC 3.67 L, Hgb 11.1 L, Hct 34.5 L, MCV 94.0, MCH 30.2, MCHC 32.2, RDW Std Deviation 51.3 H, RDW Coeff of Martina 14.7 H, Plt Count 201, MPV 10.7, Immature Gran % (Auto) 0.400, Neut % (Auto) 60.6, Lymph % (Auto) 28.0, [place] % (Auto) 10.2 H, Eos % (Auto) 0.3, Baso % (Auto) 0.5, Absolute Neuts (auto) 5.5, Absolute Lymphs (auto) 2.56, Nucleated RBC % 0, Sodium 145, Potassium 4.0, Chloride 117 H, Carbon Dioxide 23.0, Anion Gap 5, BUN 23 H, Creatinine 0.63, Estim Creat Clear Calc 38.41, Est GFR (MDRD) Af Amer 120, Est GFR (MDRD) Non-Af 99, BUN/Creatinine Ratio 36.7 H, Glucose 119 H, Calcium 9.3 D/C Instructions Weight Bearing Status: Weight bearing as tolerated Meaningful Use Info Meaningful Use Diagnoses (Choose all that apply): None applicable Discharge Plan Admission Admit Date/Time: 06/11/23 17:42 Primary Reason for Your Visit: Acute encephalopathy Attending Provider: Luisito Alcantar Primary Care Provider: Cornell Rogers Consulting Providers: Luisito Alcantar; Durga Sosa; Alfred Martinez Instructions Additional Instructions / Restrictions: BMP in 1 week and follow-up with PCP or MD in fpc Discharge Orders/Prescriptions Prescriptions: New quetiapine 25 mg Tablet 12.5 mg PO BID Qty: 0 0RF Rx Instructions: Hold during the daytime if patient is sleepy or lethargic potassium chloride [Klor-Con M20] 20 mEq Tablet,Er Particles/Crystals 20 meq PO BIDCM Qty: 0 0RF Continued albuterol sulfate 90 mcg/actuation HFA aerosol inhaler 2 inh inhalation Q6H PRN (Reason: shortness of breath or wheezing) Qty: 3 3RF Anoro Ellipta 62.5-25 mcg/actuation blister with device 1 inh INHALATION QDAY Qty: 3 3RF montelukast 10 mg tablet 10 mg PO QPM Qty: 90 3RF atorvastatin [Lipitor] 20 mg tablet 20 mg PO DAILY hydrocodone-acetaminophen 1 TABLET tablet 1 tab PO BID aspirin 81 MG tablet,delayed release (DR/EC) 81 mg PO DAILY Changed baclofen 20 mg tablet 10 mg PO TID PRN (Reason: muscle relaxer) Qty: 270 1RF duloxetine 60 mg capsule,delayed release(DR/EC) 30 mg PO DAILY 30 Days Qty: 0 0RF Discontinued fentanyl 50 mcg/hr patch 72 hour 1 patch transdermal Q72H amitriptyline 25 mg tablet 25 mg PO QHS Qty: 90 1RF Hold Instructions: Resume on 06/15/23. Would recommend against continuing this medication but please discuss with your primary care physician pregabalin 150 mg capsule 150 mg PO BID Referrals / Follow Up: Cornell Rogers MD [Primary Care Provider] - Within 2 Weeks Disposition Disposition (needs filled in before D/C Order can be placed): Detention Facility Charges/Coding Visit Charges Inpatient E&M: 18968 Disch Hosp >30min
--- NOTE | 2023-06-16 12:11 | CASEMGMT ---
Patient was approved to go to [facility]. SW notified RN, physician, and patient's . Plan: d/c to [facility] under skilled level of care on a convalescent stay. Maggie DE LA FUENTE
--- NOTE | 2023-06-16 12:52 | CASEMGMT ---
SW sent orders and negative COVID test to [facility] via [facility]. SW completed a 7000 in [employer] system. Patient's will transport patient via private vehicle. Plan: d/c to [facility] under skilled level of care on a convalescent stay. Patient's will transport patient via private vehicle. Maggie Shelton [employer] SUDHAKAR
== END 2023-06-16 13:42 | disposition skilled nursing facility (03) | DRG 917 ==
LOC: ED 17:18 → PCU 17:50
PROVIDERS: Family Medicine; Internal Medicine; Admitting Provider Internal Medicine; Emergency Provider Emergency Medicine; PCP Family Medicine; Visit Provider Internal Medicine
DX: T40.691A Poisoning by other narcotics, accidental (unintentional), initial encounter (principal); G92.8 Other toxic encephalopathy; J44.9 Chronic obstructive pulmonary disease, unspecified; E78.5 Hyperlipidemia, unspecified; F17.210 Nicotine dependence, cigarettes, uncomplicated; G47.33 Obstructive sleep apnea (adult) (pediatric); G62.9 Polyneuropathy, unspecified; E87.6 Hypokalemia; Z66 Do not resuscitate; Z79.2 Long term (current) use of antibiotics; Z51.5 Encounter for palliative care; G89.4 Chronic pain syndrome; Z86.73 Personal history of transient ischemic attack (TIA), and cerebral infarction without residual deficits
CPT/HCPCS: 36415; 70450; 70496; 70498; 80048; 80053; 80307; 81001; 82140; 83735; 84100; 84484; 85025; 87811; 92526; 92610; 93005; 94002; 94003; 94640; 94762; 97110; 97116; 97162; 97166; 97530; 97535; 97802; 99252; 99285; J7030; J7040; J7120; P9612; Q9967; A4216; G0463; J2310; J3486

== ENCOUNTER → 2023-10-06 | Outpatient (CLI) | payer MEDICARE, SELFPAY ==
[2023-10-11 16:09] LABS: Albumin 3.1 g/dL (2.9-4.4); Alpha-1-Globulins 0.3 g/dL (0.0-0.4); Gamma Globulin 1.1 g/dL (0.4-1.8); Immunoglobulin A 471 mg/dL (64-422); Immunoglobulin G 1100 mg/dL (586-1602); Immunoglobulin M 61 mg/dL (26-217); PROEL- TOTAL PROTEIN 6.6 g/dL (6.0-8.5)
== END | disposition home or self-care (01) ==
LOC: MTLAB 16:39
PROVIDERS: PCP Family Medicine; Referring Provider Psychiatry & Neurology Neurology; Visit Provider Psychiatry & Neurology Neurology
DX: G62.9 Polyneuropathy, unspecified (principal)
CPT/HCPCS: 36415; 82784; 84165; 86334; 86335

== ENCOUNTER → 2023-11-11 | Outpatient (CLI) | payer MEDICARE, SELFPAY ==
--- NOTE | 2023-11-11 13:17 | ECHOD_ITS ---
Reason For Study: Murmur Procedure This was a 2D Doppler, Color Flow transthoracic echocardiogram. Exam performed in department. Left Ventricle Normal LV size. Left ventricular systolic function is normal. The estimated ejection fraction is 65- 70 %. Normal diastology for age. No regional wall motion abnormalities noted. Right Ventricle Normal RV size. Normal systolic function. Atria The left and right atria are normal. Mitral Valve The mitral valve is structurally normal. No prolapse or stenosis seen. Trivial mitral valve insufficiency. Tricuspid Valve Normal tricuspid valve. Mild (1+) tricuspid valve insufficiency. Right ventricular systolic pressure estimated to be 28 mmHg. Aortic Valve Trisinus/trileaflet aortic valve. Mild focal aortic valve calcification. Aortic sclerosis, no stenosis. Pulmonic Valve Normal pulmonic valve. Trivial pulmonic valve insufficiency. Great Vessels Normal aortic root. Pericardium/Pleural No pericardial effusion. Medication Negative bubble study on previous echo. MMode/2D Measurements & Calculations LVIDd: 3.5 cm IVSd: 0.91 cm LVOT diam: 1.8 cm LVIDs: 2.1 cm LVPWd: 0.97 cm RVDd: 3.0 cm FS: 41.4 % LVOT area: 2.5 cm2 Ao root diam: 2.8 cm LAV(MOD-bp): 27.8 ml LVAd ap4: 19.6 cm2 LAV(MOD-bp) Indexed: 18.8 ml/m2 LVLd ap4: 6.8 cm LAV(MOD-sp2): 27.2 ml EDV(MOD-sp4): 46.8 ml LAV(MOD-sp4): 27.5 ml EDV(sp4-el): 47.8 ml LVAs ap4: 10.2 cm2 LVLs ap4: 5.8 cm ESV(MOD-sp4): 15.4 ml ESV(sp4-el): 15.2 ml EF(MOD-sp4): 67.1 % EF(sp4-el): 68.1 % LVAd ap2: 20.6 cm2 SV(MOD-sp4): 31.4 ml SV(MOD-sp2): 37.4 ml LVLd ap2: 6.8 cm EDV(MOD-sp2): 52.8 ml EDV(sp2-el): 52.6 ml LVAs ap2: 10.0 cm2 LVLs ap2: 5.9 cm ESV(MOD-sp2): 15.4 ml ESV(sp2-el): 14.2 ml EF(MOD-sp2): 70.9 % SV(sp4-el): 32.5 ml LA dimension(2D): 3.0 cm LA A4 area: 12.5 cm2 RA A4 area: 10.2 cm2 TAPSE: 2.3 cm Time Measurements MV dec time: 0.18 sec Doppler Measurements & Calculations MV E max moo: 85.7 cm/sec Lat Peak E' Moo: 7.3 cm/sec Med Peak E' Moo: 5.9 cm/sec MV A max moo: 116.5 cm/sec E/E' lat: 11.7 E/E' med: 14.6 MV E/A: 0.74 Ao V2 max: 181.3 cm/sec LV V1 max: 139.3 cm/sec MV dec slope: 477.0 cm/sec2 Ao max P.2 mmHg LV V1 max P.8 mmHg Ao V2 mean: 116.7 cm/sec LV V1 mean P.3 mmHg Ao mean P.2 mmHg LV V1 mean: 85.2 cm/sec Ao V2 VTI: 39.4 cm LV V1 VTI: 29.2 cm AV (velocity ratio): 0.74 SOULEYMANE(I,D): 1.8 cm2 SOULEYMANE(V,D): 1.9 cm2 SV(LVOT): 72.2 ml PA V2 max: 102.6 cm/sec TR max moo: 251.4 cm/sec TR max P.3 mmHg ECHO/Echo Complete Interpretation Summary The estimated ejection fraction is 65-70 %. Mild (1+) tricuspid valve insufficiency. Aortic sclerosis, no stenosis. Ordering Physician: Jean Zavala Referring Physician: Jean Zavala Performed By: Faby Martinez RDCS
--- NOTE | 2023-11-11 13:20 | CT_ITS ---
HISTORY: gait disorder; Hx CVAs and cereb aneurysm clipping. TECHNIQUE: Multiple axial images were obtained of the head without intravenous contrast. A radiation dose optimization technique was used for this scan. 243 images. COMPARISON: 06/11/2023. FINDINGS: BRAIN PARENCHYMA: Chronic right gallagher radiata and basal ganglia lacunar infarcts. Multiple foci and zones of low attenuation in the bilateral cerebral white matter compatible with chronic small vessel ischemic gliosis. No acute intra-axial hemorrhage identified. CSF SPACES: Generalized volume loss. No midline shift or other significant mass effect. No acute extra-axial hemorrhage seen. 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 OTHER: Right frontotemporal craniotomy with underlying chronic dural thickening. No significant air fluid levels in the paranasal sinuses or mastoid air cells. Bilateral lens resections. CT/Brain/Head without Contrast IMPRESSION: No acute intracranial process identified. Mild chronic involutional and white matter changes. Chronic postoperative change. Electronically Signed: Ivana Soto MD at 14:18 EST ,
== END | disposition home or self-care (01) ==
PROVIDERS: PCP Family Medicine; Referring Provider Psychiatry & Neurology Neurology; Visit Provider Psychiatry & Neurology Neurology
DX: R01.1 Cardiac murmur, unspecified (principal); Z86.73 Personal history of transient ischemic attack (TIA), and cerebral infarction without residual deficits; I67.9 Cerebrovascular disease, unspecified; R26.9 Unspecified abnormalities of gait and mobility; Z98.890 Other specified postprocedural states; Z86.79 Personal history of other diseases of the circulatory system
CPT/HCPCS: 70450; 93306

== ENCOUNTER → 2024-05-22 | Outpatient (CLI) | payer MEDICARE, SELFPAY ==
--- NOTE | 2024-05-22 15:03 | CDU_ITS ---
Reason For Study: Carotid bruit Rt. Velocities/BP Lt. Velocities/BP Prox CCA 75.9/20.1 cm/sec. Prox CCA 74.3/12.7 cm/sec. Mid CCA 74.9/17.3 cm/sec. Mid CCA 67.7/11.7 cm/sec. Dist CCA 72.1/23 cm/sec. Dist CCA 61.1/16 cm/sec. Prox ICA 72.3/23 cm/sec. Prox ICA 153.9/44 cm/sec. Mid ICA 84.9/25.8 cm/sec. Mid ICA 76/13.9 cm/sec. Dist ICA 89.9/34.3 cm/sec. Dist ICA 94.2/39.5 cm/sec. Rt. ICA/CCA = 1.20. Lt. ICA/CCA = 2.27. Prox ECA 57.2/5.3 cm/sec. Prox ECA 125.3/6.6 cm/sec. Rt. Vert. 43.1/5.3 cm/sec. Lt. Vert. 46.8/11.9 cm/sec. Right Extracranial There is intimal thickening but no significant atherosclerotic plaque noted in the right common carotid artery. There is heterogeneous, irregular atherosclerotic plaque noted in the right internal carotid artery. There is heterogeneous, irregular atherosclerotic plaque noted in the right external carotid artery. Antegrade flow is noted in the right vertebral artery. Left Extracranial There is intimal thickening but no significant atherosclerotic plaque noted in the left common carotid artery. There is heterogeneous, irregular atherosclerotic plaque noted in the left internal carotid artery. There is heterogeneous, irregular atherosclerotic plaque noted in the left external carotid artery. Antegrade flow is noted in the left vertebral artery. Procedure Carotid Duplex 43380. This is a Carotid Duplex examination using B-mode, color flow and specral Doppler. Exam performed in department. VL/Carotid Duplex Ultrasound Interpretation Summary Mild (<50%) stenosis right extracranial internal carotid. Moderate (50-69%) stenosis left extracranial internal carotid. Patent and antegrade vertebrals bilaterally. Ordering Physician: eJan Zavala Referring Physician: Cornell Rogers Performed By: Neyda Jacob RVT and Student
== END | disposition home or self-care (01) ==
PROVIDERS: PCP Family Medicine; Referring Provider Psychiatry & Neurology Neurology; Visit Provider Psychiatry & Neurology Neurology
DX: R09.89 Other specified symptoms and signs involving the circulatory and respiratory systems (principal); I65.29 Occlusion and stenosis of unspecified carotid artery
CPT/HCPCS: 93880

== ENCOUNTER → 2024-05-23 | Outpatient (CLI) | payer MEDICARE, SELFPAY ==
[2024-05-23 17:23] LABS: Absolute Lymphocyte Count 2.99 X10^3/uL (0.83-4.51); Absolute Neutrophil Count 2.7 X10^3/uL (2.0-7.7); Basophil# 0.07 X10^3/uL; Basophil% 1.1 % (0-1); Eosinophil# 0.19 X10^3/uL; Eosinophils% 2.9 % (0-5); Hemoglobin 12.4 g/dL (12.0-15.0); Lymphocyte # 2.99 X10^3/ul (0.83-4.51); Lymphocyte % 45.6 % (19-41); Mean Corp Hgb Conc 31.8 g/dL (32-36); Mean Corpuscular Hgb 29.9 pg (27.0-32.0); Mean Platelet Vol. 10.8 fl (6.2-12.0); Monocyte# 0.59 X10^3/uL; NRBC Flagged by Analyzer 0 % (0-5); Neutrophil % 41.2 % (47-70); Platelet Count 208 K/mm3 (150-450); RBC Distribution Width CV 13.7 % (11.6-14.6); RET-HE 34.6 pg (30-35); Red Blood Count 4.15 M/mm3 (4.2-5.4); Reticulocyte Count 0.91 % (0.5-1.5); White Blood Count 6.6 K/mm3 (4.4-11.0)
[2024-05-23 17:41] LABS: Erythrocyte Sedimentation Rate 17 mm/hr (0-30)
[2024-05-23 18:11] LABS: Vitamin B12 397 pg/mL (211-911)
[2024-05-23 20:02] LABS: ALB/GLOB Ratio 0.9 RATIO (0.9-2.4); AST(SGOT) 22 U/L (15-37); Alanine Aminotransfer ALT/SGPT 24 U/L (13-56); Albumin, Serum 3.3 g/dL (3.2-5.0); Alkaline Phosphatase 71 U/L (45-117); Anion Gap 4 (5-15); BUN 17 mg/dL (7-18); BUN/Creat Ratio 23.7 RATIO (10-20); CRP < 2.90 mg/L (0.0-3.0); Calcium,Total 9.6 mg/dL (8.5-10.1); Chloride 111 mmol/L (98-107); Creatinine, Serum 0.72 mg/dL (0.55-1.02); EST Glomerular Filtration Rate 84 mL/min (>60); Est Glom Filt Rate - Afr Amer 102 mL/min (>60); Ferritin 38 ng/mL (8-252); Globulin 3.8 g/dL (2.2-4.2); Glucose 72 mg/dL (74-106); Iron 100 ug/dL (50-170); Iron Binding Capacity,Total 314 ug/dL (250-450); PERCENT IRON SATURATION 31.8 % (15.0-55.0); Phosphorus 3.2 mg/dL (2.5-4.9); Potassium 4.1 mmol/L (3.5-5.1); Protein, Total 7.1 g/dL (6.4-8.2); Sodium Level 141 mmol/L (136-145); Uric Acid 4.7 mg/dL (2.6-6.0)
[2024-05-25 15:09] LABS: Albumin 3.9 g/dL (2.9-4.4); Alpha-1-Globulins 0.2 g/dL (0.0-0.4); Alpha-2-Globulins 0.8 g/dL (0.4-1.0); Free Kappa Light Chains 29.7 mg/L (3.3-19.4); Free Lambda Light Chains 23.4 mg/L (5.7-26.3); Gamma Globulin 0.8 g/dL (0.4-1.8); Immunoglobulin A 390 mg/dL (64-422); Immunoglobulin G 1014 mg/dL (586-1602); Immunoglobulin M 66 mg/dL (26-217); PROEL- TOTAL PROTEIN 6.6 g/dL (6.0-8.5)
== END | disposition home or self-care (01) ==
PROVIDERS: PCP Family Medicine; Referring Provider Internal Medicine Medical Oncology; Visit Provider Internal Medicine Medical Oncology
DX: R80.3 Bence Jones proteinuria (principal); R77.8 Other specified abnormalities of plasma proteins
CPT/HCPCS: 36415; 80053; 82607; 82728; 82746; 82784; 83540; 83550; 83735; 83883; 84100; 84165; 84550; 85025; 85045; 85652; 86140; 86334

== ENCOUNTER → 2024-05-25 | Outpatient (CLI) | payer MEDICARE, SELFPAY ==
[2024-05-25 10:55] LABS: 24 HR UR TOTAL VOLUME 1050 ML
[2024-05-25 12:51] LABS: Microalbumin,Random Urine 10.9 mg/L (NOT. EST.); Urine Microalbumin (24 Hour) 11.4 mg/24 HR (0.0-30.0)
[2024-05-29 15:09] LABS: Albumin, Ur 55.3 % (.); Alpha-1-Globulin, Ur 2.2 % (.); Alpha-2-Globulins, Ur 14.2 % (.); Beta Globulin, Ur 22.8 % (.); Gamma Globulin, Ur 5.5 % (.); M-Spike, Ur % Not Observed % (Not Observed); Protein, 24Ur 175 mg/24 hr (30-150); Total Protein, Ur 16.7 mg/dL (Not Estab.)
== END | disposition home or self-care (01) ==
LOC: LABSPEC 09:50
PROVIDERS: PCP Family Medicine; Referring Provider Internal Medicine Medical Oncology; Visit Provider Internal Medicine Medical Oncology
DX: R80.9 Proteinuria, unspecified (principal); R77.8 Other specified abnormalities of plasma proteins; R80.3 Bence Jones proteinuria
CPT/HCPCS: 81050; 82043; 84166; 86335

== ENCOUNTER → 2024-06-05 | Outpatient (CLI) | payer MEDICARE, SELFPAY ==
--- NOTE | 2024-06-05 12:05 | RAD_ITS ---
INDICATION: ABNORMAL PROTEIN IN URINE EXAMINATION/TECHNIQUE: X-RAY - XR Chest 2 Views COMPARISON: Prior study dated: 05/28/2023 FINDINGS: LINES/DEVICES: None. LUNGS: No consolidation, edema or effusion. No pneumothorax. MEDIASTINUM AND CARDIOVASCULAR STRUCTURES: Cardiac silhouette not enlarged. Central airways and mediastinal contour are unremarkable. BONES AND SOFT TISSUES: Unremarkable. RAD/Chest PA and Lateral IMPRESSION: No radiographic evidence of acute cardiopulmonary disease. Electronically Signed: David Vargas MD at 12:18 EDT ,
== END | disposition home or self-care (01) ==
LOC: RAD 11:57
PROVIDERS: PCP Family Medicine; Referring Provider Internal Medicine Medical Oncology; Visit Provider Internal Medicine Medical Oncology
DX: R80.9 Proteinuria, unspecified (principal); R77.8 Other specified abnormalities of plasma proteins; R49.1 Aphonia
CPT/HCPCS: 71046

== ENCOUNTER 2024-06-18 14:46 | Outpatient (RCR) | payer MEDICARE, SELFPAY | END 2024-07-07 23:59 | LOC: NS 14:46 | PROVIDERS: PCP Family Medicine; Visit Provider Internal Medicine Medical Oncology | DX: Z71.3 Dietary counseling and surveillance (principal) ==

== ENCOUNTER → 2024-06-27 | Outpatient (CLI) | payer MEDICARE, SELFPAY ==
--- NOTE | 2024-06-27 14:58 | CT_ITS ---
STUDY: CT LUMBAR SPINE WITHOUT CONTRAST REASON FOR EXAM: Female, 74 years old. LBP; bilat lumb radiculopathy; Hx lumbar surgery RADIATION DOSAGE (If Supplied By Facility): CTDIvol = ( 10.21 ) mGy, DLP = ( 304.19 ) mGycm TECHNIQUE: The patient was scanned in a multi detector CT scanner. High resolution transaxial imaging was performed. Images were obtained from L1 to S1 vertebral level. Sagittal and coronal images were reconstructed. Individualized dose optimization techniques were used for this CT. COMPARISON: None FINDINGS: Normal lumbar lordosis. There is no substantial scoliosis. Normal vertebrae of the lumbar spine. L1-2: Normal endplates. Normal disc height and morphology. Normal bilateral facet joints. Normal central canal and bilateral lateral recesses. Normal bilateral intervertebral neural foramina. L2-3: Normal endplates. Normal disc height and morphology. Normal bilateral facet joints. Normal central canal and bilateral lateral recesses. Normal bilateral intervertebral neural foramina. L3-4: Normal endplates. Normal disc height and morphology. Normal bilateral facet joints. Normal central canal and bilateral lateral recesses. Normal bilateral intervertebral neural foramina. L4-5: Moderate degree of disc space narrowing. There is evidence of prior discography. Is evidence of prior laminectomy at the L4-L5 level. L5-S1: Moderate degree of disc space narrowing. There is evidence of prior discography. Atherosclerotic calcification of the infrarenal abdominal aorta. There is evidence of a mild dilatation of the distal abdominal aorta with a transverse dimension of 3.3 cm. Questionable retroperitoneal para-aortic lymph nodes. CT/Spine Lumbar without Contrast IMPRESSION: Postoperative changes at the L4-L5 level. Degenerative disc disease at the L4-L5 and L5-S1 levels. No evidence of spinal stenosis. A questionable para-aortic lymphadenopathy. Electronically Signed: Steve Pulliam MD at 14:57 EDT ,
--- NOTE | 2024-06-27 15:15 | RAD_ITS ---
EXAM: XR LUMBOSACRAL SPINE, 2 OR 3 VIEWS CLINICAL INDICATION: LBP: bilat lum radiculopathy; Hx lumbar surgery TECHNIQUE: Frontal and lateral views of the lumbar spine and sacrum. COMPARISON: CT lumbar spine, 06/27/2024 FINDINGS: VERTEBRAE: Multilevel facet arthrosis and multilevel endplate osteophytosis throughout the spine. Evidence of previously described L5 laminectomy. Preserved vertebral body height. No evidence of acute fracture. No spondylolisthesis. Preservation of the normal lumbar lordosis. SACRUM/COCCYX: Bilateral SI joint arthrosis. DISC SPACES: Bony fusion from L4 through S1. Status post discectomy at these levels. VASCULATURE: Vascular calcifications. As previously demonstrated ectasia of the abdominal aorta. GASTROINTESTINAL TRACT: Normal as visualized. Included bowel gas pattern is non-obstructive. RAD/Lumbar Spine 2 or 3 Views IMPRESSION: 1. Multilevel facet arthrosis and multilevel endplate osteophytosis throughout the spine. Evidence of previously described L5 laminectomy. 2. Bony fusion from L4 through S1. Status post discectomy at these levels. Electronically Signed: Aldair Toussaint DO at 21:09 EDT ,
== END | disposition home or self-care (01) ==
PROVIDERS: PCP Family Medicine; Referring Provider Psychiatry & Neurology Neurology; Visit Provider Psychiatry & Neurology Neurology
DX: M54.16 Radiculopathy, lumbar region (principal); M54.50 Low back pain, unspecified
CPT/HCPCS: 72100; 72131

== ENCOUNTER 2024-08-02 17:00 | Outpatient (RCR) | payer MEDICARE, SELFPAY ==
--- NOTE | 2024-07-10 16:53 | HP.PTEVAL ---
Patient's Visit Information Visit Information Visit Information: SCOUT CASTILLO is a 74 year old F referred to Physical Therapy by Dr. Jean Zavala MD with a diagnosis of abnormality of gait. Date of Evaluation: 07/10/24 Physical Therapist: Reji Alas, DPT, OCS, CSCS Visit Plan Frequency: 2x /Week Duration: 4-6 Weeks Plan: 2x/week for 4-6 weeks for 1. teach LE adn postural strength pt can do I at home at counter for activity, include weight shifts and gait training as safety allows. Ensure using wh walker for ambuilation in community/home. Subjective Subjective: of 43 years talks for her. She is not walking great. No strength. Neuro says she has the shakes. Hard to walk b/c she is to weak and doctor still has no diagnoses. Started with neuro due to shakiness and weakness thought she had parkinsons but that wasn't it. Thought it was CA but tests didn't show any. He says she is losing weight down to 102# and cannot walk good due to balance being off. Falls one time per week. uses cane. usually falls up against the fajardo. has wh walker but does not like it. Lives with , one story house with one step to get in on porch and he needs to help her. Has numbness in legs sometimes neuropathy but not sure why, has h/o back surgeries. no longer has back doctor. 2 brain anyeurism and one blood clot operation. None recently. Not employed. Cannot volunteer anymore due to walking. Spends day tryint clean house and sitting around. Cannot work out in garden anymore. Has been inactive most of this year. No spinning. No seizures lately. Pain LBP: Pain Intensity (Out of 10): 7 Pain Intensity Range: 4 and 9 Comment: vaccuum and bending makes it worse Objective Objective: Walks hand in hand with and cane back to PT CGA. trasnfers with UE I chair. Steps require two rails and prefers L but mod I with rail. Can use either LE. Posture is hunched FW and barely to neutral spine in tall stand. Walks without AD with Min A short steps , no weight shift.. 40 feet. Very weak in legs , DF 0# but able to elevate in sit and stand. knee ext 4# B, gives quickly, HS 7# B, hip flexion 11 # R and 8 # L, all with initial contraction but then gives way to nil.. reflexes 0/3 patella adn achilles Sensation LE WNL to gross lgiht touch, Poor and slow coordination to reciprocal toe and heel tap. Balance/Special Test Scores Functional Gait Assessment Score: 13 % Disability: 56.6700 Lower Extremity Functional Score: 15 TUG Test Time Seconds: 27 30 Second Chair Rise Test Seconds: 7 Goals Goal 1:: Walk with whw walker into adn out of PT mod I with decent step length Goal Time Frame: 4-6 Weeks Goal 2:: I approp HEP for weight shifts, LE and postural strength adn gait. Goal Time Frame: 4-6 Weeks Goal 3:: 10 on 30 SSTS and <20 on TUG with wh walker Goal Time Frame: 4-6 Weeks Goal 4:: Es and her note 50% improvement in overall mobility Goal Time Frame: 4-6 Weeks Rehabilitation Potential Physical Therapy Diagnosis: weakness, unsteadiness making activity nil Rehabilitation Potential: Fair Anticipated Interventions Patient/Client Instruction: Educate patient on: Condition and Plan of Care For the Purpose of:: To improve nutrient delivery to tissue, To improve muscle performance and motor function, To increase tolerance to activity/condition/position and To improve gait and locomotor functions Therapeutic Exercise to Include: Strength training, Postural training, Flexibilty training and Active ROM For the Purpose of:: To increase ROM, To improve nutrient delivery to tissue, To improve muscle performance and motor function and To increase tolerance to activity/condition/position Text: Thank you for the opportunity to evaluate your patient. For Medicare and Medicare HMO plans, please review the plan of care and approve it. It will need to be FAXED BACK to us at [phone] for Medicare purposes. For Medicare only, by signing this I certify the plan of care. Please let me know if there are questions or concerns regarding this plan of care. Physician Signature: Date:
--- NOTE | 2024-09-13 16:29 | HP.PT.NRP ---
Patient Information Patient Information: SCOUT CASTILLO was seen in my office for initial evaluation on 07/10/24. The following Plan of Care was established for this patient: POC Established Initial Frequency: 2x /Week Initial Duration: 4-6 Weeks Anticipated Interventions Patient/Client Instruction: Educate patient on: Condition and Plan of Care For the Purpose of:: To improve nutrient delivery to tissue, To improve muscle performance and motor function, To increase tolerance to activity/condition/position and To improve gait and locomotor functions Therapeutic Exercise to Include: Strength training, Postural training, Flexibilty training and Active ROM For the Purpose of:: To increase ROM, To improve nutrient delivery to tissue, To improve muscle performance and motor function and To increase tolerance to activity/condition/position Last Seen Last Seen: This patient was last seen in our office 08/02/24. Pertinent comments regarding their Physical therapy will appear below: Pt seen 2 visits of POC and cancelled adn no showed the rest. at this point, it has been over 5 weeks and I will discontinue due to nonattendance. At this point I will be discontinuing this patient from physical therapy. I would be happy to see this patient again in the future if found appropriate by the physician. Thank you! Reji Alas, DPT, OCS, CSCS Balance/Gait/Functional tests Balance/Special Test Scores Functional Gait Assessment Score: 13 % Disability: 56.6700 Lower Extremity Functional Score: 15 TUG Test Time Seconds: 27 Tug Test: 20-30sec.=variable mobility 30 Second Chair Rise Test Seconds: 7
== END 2024-08-02 19:00 | disposition home or self-care (01) ==
LOC: PT 17:00
PROVIDERS: PCP Family Medicine; Referring Provider Psychiatry & Neurology Neurology; Visit Provider Psychiatry & Neurology Neurology
DX: M54.16 Radiculopathy, lumbar region (principal); R26.9 Unspecified abnormalities of gait and mobility; G62.9 Polyneuropathy, unspecified; M54.50 Low back pain, unspecified; Z86.73 Personal history of transient ischemic attack (TIA), and cerebral infarction without residual deficits
CPT/HCPCS: 97110; 97161

== ENCOUNTER → 2025-01-11 | Outpatient (CLI) | payer MEDICARE, SELFPAY ==
[2025-01-11 11:43] LABS: Absolute Lymphocyte Count 3.34 X10^3/uL (0.83-4.51); Basophil% 1.3 % (0-1); Eosinophil# 0.25 X10^3/uL; Eosinophils% 3.3 % (0-5); Hematocrit 34.8 % (37-47); Hemoglobin 11.4 g/dL (12.0-15.0); Lymphocyte # 3.34 X10^3/ul (0.83-4.51); Lymphocyte % 44.5 % (19-41); Mean Corp Hgb Conc 32.8 g/dL (32-36); Mean Corpuscular Hgb 30.9 pg (27.0-32.0); Mean Corpuscular Volume 94.3 fL (81-99); Mean Platelet Vol. 10.1 fl (6.2-12.0); Monocyte# 0.79 X10^3/uL; Monocyte% 10.5 % (0-10); NRBC Flagged by Analyzer 0 % (0-5); Neutrophil # 3.02 X10^3/uL (2.7-7.7); Neutrophil % 40.3 % (47-70); Platelet Count 279 K/mm3 (150-450); RBC Distribution Width CV 15.4 % (11.6-14.6); RBC Distribution Width SD 53.1 fl (35.1-43.9); Red Blood Count 3.69 M/mm3 (4.2-5.4); White Blood Count 7.5 K/mm3 (4.4-11.0)
[2025-01-11 12:06] LABS: ALB/GLOB Ratio 1.3 RATIO (0.9-2.4); AST(SGOT) 26 U/L (<=31); Alanine Aminotransfer ALT/SGPT 16 U/L (<=34); Albumin, Serum 3.8 g/dL (3.4-4.8); Alkaline Phosphatase 80 U/L (35-104); Anion Gap 12 (5-15); BUN 21 mg/dL (4-19); Calcium,Total 9.5 mg/dL (7.6-11.0); Chloride 106 mmol/L (98-108); Creatinine, Serum 0.72 mg/dL (0.70-1.20); EST Glomerular Filtration Rate 88 (>60); Glucose 83 mg/dL (70-99); LDH 158 U/L (84-246); Potassium 4.1 mmol/L (3.3-5.1); Protein, Total 6.9 g/dL (5.9-8.4); Sodium Level 142 mmol/L (133-145); Total Bilirubin 0.27 mg/dL (0.00-1.30)
[2025-01-15 17:07] LABS: Albumin 3.4 g/dL (2.9-4.4); Alpha-1-Globulins 0.2 g/dL (0.0-0.4); Alpha-2-Globulins 0.9 g/dL (0.4-1.0); Free Kappa Light Chains 36.6 mg/L (3.3-19.4); Free Lambda Light Chains 29.1 mg/L (5.7-26.3); Gamma Globulin 0.9 g/dL (0.4-1.8); Immunoglobulin A 434 mg/dL (64-422); Immunoglobulin G 1008 mg/dL (586-1602); Immunoglobulin M 54 mg/dL (26-217); PROEL- TOTAL PROTEIN 6.6 g/dL (6.0-8.5)
== END | disposition home or self-care (01) ==
LOC: LAB 11:19
PROVIDERS: PCP Family Medicine; Referring Provider Internal Medicine Medical Oncology; Visit Provider Internal Medicine Medical Oncology
DX: R76.8 Other specified abnormal immunological findings in serum (principal)
CPT/HCPCS: 36415; 80053; 82784; 83615; 83883; 84165; 85025; 86334

== ENCOUNTER → 2025-08-21 | Outpatient (CLI) | payer MEDICARE, SELFPAY ==
--- NOTE | 2025-08-21 17:21 | CT_ITS ---
PROCEDURE: CT CHEST, ABD, PEL W/CONTRAST 08/21/2025 REASON FOR EXAM: ABDOMINAL LYMPHADENOPATHY History of breast cancer and uterine cancer. Prior hysterectomy, appendectomy and cholecystectomy. Prior partial gastrectomy. TECHNIQUE: Chest, abdomen and pelvis CT with intravenous contrast. Coronal and Sagittal reconstruction series were provided. One or more dose reduction techniques were used (e.g., Automated exposure control, adjustment of the mA and/or kV according to patient size, use of iterative reconstruction technique. PATIENT PREPARATION: Per protocol ORAL CONTRAST TYPE: Per protocol. CONTRAST: Isovue-300 VOLUME: 75mL RADIATION DOSE SUMMARY: CTDlvol: 8.4 mGy DLP: 421.01 mGycm COMPARISON: None FINDINGS: CT CHEST: Hardware: None Lymph nodes: No suspicious hilar or mediastinal lymphadenopathy seen. Heart and Vasculature: Atherosclerotic calcification of the aortic arch. Coronary artery calcification. Lungs and Airways: Mild emphysematous changes are present. Mild increased markings at the lung bases suggestive of mild basilar scarring. Pleura: No pleural effusion. Bones: Degenerative changes of the thoracic spine. Increased kyphosis. CT ABDOMEN/PELVIS: Liver: Mild degree of central intrahepatic biliary ductal dilatation. Dilshad's lobe of the liver. Gallbladder: The patient is status post cholecystectomy. There is dilatation of the common bile duct down to the ampulla of Vater. It measures 12.5 mm. Spleen: Normal size. Pancreas: Diffuse fatty atrophy. Adrenals: Unremarkable Kidneys: Normal renal sizes. No hydronephrosis. Bladder: Unremarkable Reproductive Organs: Prior hysterectomy. Adnexal regions are unremarkable. Bowel: Colonic diverticulosis without diverticulitis. Moderate amount of fecal material is seen in the colon. Appendix: Status post appendectomy. Lymph nodes: Unremarkable. Vasculature: Diffuse atherosclerotic calcifications of the abdominal aorta and its major visceral branches. Are noted. Peritoneum / Retroperitoneum: Unremarkable Bones: Degenerative changes at the L4-L5 and L5-S1 levels. CT/CT Chest, Abd, Pel w/Contrast IMPRESSION: No evidence of retroperitoneal or pelvic lymphadenopathy. Status post cholecystectomy with intrahepatic biliary ductal dilatation as well as duct dilatation of the common bile duct. Status post hysterectomy and appendectomy. Status post cholecystectomy. Reading Location: [place] [id number]
== END | disposition home or self-care (01) ==
LOC: CT 17:20
PROVIDERS: PCP Family Medicine; Referring Provider Internal Medicine Medical Oncology; Visit Provider Internal Medicine Medical Oncology
DX: R59.0 Localized enlarged lymph nodes (principal); R77.8 Other specified abnormalities of plasma proteins
CPT/HCPCS: 71260; 74177; Q9967

== ENCOUNTER → 2025-10-10 | Outpatient (CLI) | payer MEDICARE, SELFPAY ==
--- NOTE | 2025-10-10 09:58 | CDU_ITS ---
Reason For Study Reason For Study: Left carotid bruit Rt. Velocities/BP Lt. Velocities/BP Prox CCA 57.9/13.5 cm/sec. Prox CCA 60.7/15.4 cm/sec. Mid CCA 57/18.2 cm/sec. Mid CCA 59.8/17.3 cm/sec. Dist CCA 79.6/25.8 cm/sec. Dist CCA 57.9/20.1 cm/sec. Prox ICA 72.1/25.8 cm/sec. Prox ICA 160.9/57.7 cm/sec. Mid ICA 164.1/47.4 cm/sec. Mid ICA 144.8/40.7 cm/sec. Dist ICA 71.9/17.9 cm/sec. Dist ICA 70.3/22.6 cm/sec. Rt. ICA/CCA = 2.88. Lt. ICA/CCA = 2.69. Prox ECA 75.9/6.9 cm/sec. Prox ECA 94.9/11.3 cm/sec. Rt. Vert. 50.9/11.3 cm/sec. Lt. Vert. 51.3/15.4 cm/sec. Right Extracranial There is homogeneous, smooth atherosclerotic plaque noted in the right common carotid artery. There is heterogeneous, irregular atherosclerotic plaque noted in the right internal carotid artery. The right internal carotid artery is very tortuous. There is heterogeneous, irregular atherosclerotic plaque noted in the right external carotid artery. Antegrade flow is noted in the right vertebral artery. Left Extracranial There is heterogeneous, irregular atherosclerotic plaque noted in the left common carotid artery. There is heterogeneous, irregular atherosclerotic plaque noted in the left internal carotid artery. There is heterogeneous, irregular atherosclerotic plaque noted in the left external carotid artery. Antegrade flow is noted in the left vertebral artery. Procedure Carotid Duplex [id number]. This is a Carotid Duplex examination using B-mode, color flow and specral Doppler. Exam performed in department. VL/Carotid Duplex Ultrasound Interpretation Summary Moderate (50-69%) stenosis right extracranial internal carotid. Moderate (50-69 %) stenosis left extracranial internal carotid. In the right internal carotid artery, elevated velocities may be due t o vessel tortuosity. Flow within the vertebral arteries is antegrade bilaterally. Ordering Physician: Jean Zavala Referring Physician: Cornell Rogers Performed By: Neyda Jacob RVT
== END | disposition home or self-care (01) ==
LOC: CVS 09:56
PROVIDERS: PCP Family Medicine; Referring Provider Psychiatry & Neurology Neurology; Visit Provider Psychiatry & Neurology Neurology
DX: R09.89 Other specified symptoms and signs involving the circulatory and respiratory systems (principal)
CPT/HCPCS: 93880